=== PATIENT | male | born 1960 | race Caucasian/White ===

== ENCOUNTER 2017-02-04 04:01 | Emergency (ER) | payer BC, OTHER ==
[~2017-02-04] VITALS: Ht 180.3 cm; Wt 109.5 kg
[~2017-02-04 04:01] MED LIST: NO HOME MEDS
[2017-02-04 04:06] VITALS: BP 146/91; PULSE 73; TEMP 36.5; O2SAT 94; Ht 180.3 cm; Wt 109.5 kg
[2017-02-04] MEDS ORDERED: PRED20TA PO (04:22)
--- NOTE | 2017-02-05 03:10 | EMERGENCY ROOM VISIT NOTE ---
History First contact with patient: 04:10 Chief Complaint: RASH Stated Complaint: WELTS ON BACK AND ARMS History of Present Illness The patient is a 56 year old male who presents to the Emergency Room with complaints of urticaria that have been coming and going over the past 2-3 days. The patient primarily has been having symptoms along his low back. He does not have reports of new medications, deodorants, or soaps. No known exposure to contact irritants. He has not been ill with fever, chills, throat pain or swelling, chest pain, chest tightness, or shortness of breath. The patient is employed and works outside most days. He is unsure what may be causing this, as he has never had this in the past. He rates his discomfort a 2/10. Review of Systems More than 10 systems were reviewed and otherwise negative with the exception of history of present illness. Past Medical/Surgical History Medical Problems: (1) Calculus Of Ureter (2) Lumbago (3) Tobacco Use Disorder Family History No pertinent family history Social History Smoking Status: Current Every Day Smoker Alcohol Use: occasionally Marital Status: Occupation Status: employed Current/Historical Medications Scheduled Prednisone (Prednisone), 0 PO DAILY Miscellaneous Medications [No Home Meds] Allergies Coded Allergies: No Known Allergies (Verified , 11/16/03) Physical Exam Vital Signs Date Time Temp Pulse Resp B/P Pulse Ox O2 Delivery O2 Flow Rate FiO2 02/04/17 04:06 36.5 73 16 146/91 94 Room Air Pain Rating (0-10): 0 Physical Exam VITALS: Vitals are noted on the nurse's note and reviewed by myself. Vital signs stable. GENERAL: Well-developed, well-nourished, white male, who is in no acute distress and resting comfortably. Patient is cooperative with the examination. HEAD: Normocephalic atraumatic. MOUTH: Mucous membranes moist. Tonsils are not enlarged. Pharynx without erythema, blood, or exudate. Uvula midline. Airway patent. NECK: Supple without nuchal rigidity. No lymphadenopathy. No thyromegaly. Cervical spine is nontender. HEART: Regular rate and rhythm without murmurs gallops or rubs. LUNGS: Coarse breath sounds throughout ABDOMEN: Positive normal bowel sounds x 4. Soft, nontender, without masses or organomegaly. No guarding or rebound tenderness. MUSCULOSKELETAL: No muscle atrophy, erythema, or edema noted. Full range of motion without joint tenderness in all extremities. NEURO: Patient was alert and oriented to person place and time. CN II through XII grossly intact. SKIN: The skin was with several urticaria appreciated along the back. No other lesions noted. Medical Decision & Procedures Medications Administered Medications (Trade) Dose Ordered Sig/Antelmo Route Start Time Stop Time Status Last Admin Dose Admin Prednisone (PredniSONE TAB) 60 mg NOW STAT PO 02/04/17 04:21 02/04/17 04:23 DC 02/04/17 04:25 60 MG ED Course Physical exam and history were performed. Nursing notes and EMR were reviewed. Patient appears to have an urticarial-like rash primarily along his low back. He states his symptoms are worse at night, and he does not have signs of anaphylaxis. The patient is a heavy smoker, and does have coarse breath sounds. I feel this is likely from the smoking and not from an allergic reaction. I discussed options of care with the patient. He will be given a dose of prednisone here as well as a continuation prescription. The patient was asked to follow with his primary care physician for ongoing care and evaluation. He is otherwise invited back to the ER with any new, worsening, or concerning symptoms. The chart was completed utilizing [employer] Speech Voice Recognition Software. Grammatical errors, random word insertions, pronoun errors, and incomplete sentences are an occasional consequence of this system due to software limitations, ambient noise, and hardware issues. Any formal questions or concerns about the content, text, or information contained within the body of this dictation should be directly addressed to the provider for clarification. . Medical Decision Differential diagnosis: Etiologies such as contact dermatitis, viral exanthem, urticaria, allergic reaction, Giang-Adin syndrome, toxic epidermal necrolysis, erythema multiforme, cellulitis, scabies, HSV, varicella, zoster, eczema, staph scalded skin syndrome, fungal infection, as well as others were entertained. Impression Primary Impression: Rash and nonspecific skin eruption Departure Information Dispostion Home / Self-Care Condition FAIR Prescriptions Prednisone (Prednisone) 20 Mg Tab 0 PO DAILY, #18 TAB 3 DAILY FOR 3 DAYS, THEN 2 DAILY FOR 3 DAYS, THEN 1 DAILY FOR 3 DAYS. Prov: Be Giraldo PA-C 02/04/17 Forms HOME CARE DOCUMENTATION FORM, IMPORTANT VISIT INFORMATION Patient Instructions My [facility] Additional Instructions You were seen and evaluated today on an emergency basis only. This is not a substitute for, or an effort to provide, complete comprehensive medical care. It is not possible to recognize and treat all injuries or illnesses in a single emergency department visit. For this reason it is recommended that you followup with your primary care physician next week if any ongoing or persisting symptoms. Take prednisone as prescribed. You are welcome to return to the emergency department anytime with new, worsening, or concerning symptoms.
[2017-08-15] MEDS ORDERED: FLM4 PO (10:18)
[2017-08-15] MEDS ORDERED: ULT50X PO (10:18)
[2017-08-15] MEDS ORDERED: IBUP-1277 PO (10:18)
[2017-08-19] MEDS ORDERED: ULT50X PO ×2 (17:29→17:33)
[2017-08-19] MEDS ORDERED: PHEN-1043 PO (17:29)
== END 2017-02-04 04:26 | disposition home or self-care (01) ==
LOC: C.EDB 04:03 → C.EDA 04:26
DX: R21 Rash and other nonspecific skin eruption (principal); Z87.442 Personal history of urinary calculi; F17.210 Nicotine dependence, cigarettes, uncomplicated

== ENCOUNTER 2017-03-08 21:03 | Emergency (ER) | payer OTHER ==
[~2017-03-08] VITALS: Ht 181.6 cm; Wt 107.6 kg
[~2017-03-08 21:03] MED LIST changes: +PRED20TA PO
[2017-03-08 21:05] VITALS: TEMP 37; Ht 181.6 cm; Wt 107.6 kg
[2017-03-08] MEDS ORDERED: KETOROLAC TROMETHAMINE 30 MG/ML VIAL IV STA (21:31)
[2017-03-08] MEDS ORDERED: SODIUM CHLORIDE 0.9% 1000ML 1,000 ML IV STA (21:31)
[2017-03-08] MEDS ORDERED: ALBUT/IPRATROP 3MG/0.5MG NEB 3 ML VIAL INH STA ×2 (21:31→22:47)
[2017-03-08] MEDS ORDERED: DEXAMETHASONE SOD INJ 10 MG/ML VIAL IV ONE (21:45)
[2017-03-08 21:53] VITALS: O2SAT 99
[2017-03-08 22:16] LABS: BASO % 0.2 %; BASO ABS # 0.02 K/uL (0-0.2); COMPLETE YES; EOS % 2.1 %; HEMATOCRIT 40.3 % (42-52); IG% 0.2 %; LYMPH % 16.1 %; LYMPH ABS # 1.31 K/uL (1.2-3.4); MEAN CELL VOLUME 87.6 fL (80-100); MEAN CORPUSCULAR HEMOGLOBIN 30.2 pg (25-34); MEAN CORPUSCULAR HGB CONC 34.5 g/dl (32-36); MEAN PLATELET VOLUME 10.7 fL (7.4-10.4); MONO % 13.8 %; NEUT % 67.6 %; PLATELET COUNT 268 K/uL (130-400); WHITE BLOOD COUNT 8.16 K/uL (4.8-10.8)
[2017-03-08 22:34] LABS: BLOOD UREA NITROGEN 9 mg/dl (7-18); BUN/CREATININE RATIO 8.2 (10-20); CALCIUM 8.8 mg/dl (8.5-10.1); CARBON DIOXIDE 27 mmol/L (21-32); CHLORIDE 107 mmol/L (98-107); GLUCOSE 86 mg/dl (70-99); POTASSIUM 3.9 mmol/L (3.5-5.1); SODIUM 141 mmol/L (136-145)
--- NOTE | 2017-03-08 22:37 | DIAGNOSTIC IMAGING REPORT ---
TWO VIEW CHEST CLINICAL HISTORY: Cough and fever. FINDINGS: PA and lateral chest radiographs are obtained. No prior studies are available for comparison at the time of dictation. The cardiomediastinal silhouette is unremarkable. There is no airspace consolidation. An 11 mm nodular density projects over the right midlung. There is no pneumothorax. The bony thorax appears intact. IMPRESSION: 1. No acute cardiopulmonary abnormality. 2. An 11 mm indeterminant nodular density projects over the right midlung. Although could represent artifact, follow-up with a chest CT is recommended for further assessment and to exclude underlying pulmonary lesion. Electronically signed by: Mehdi Escoto M.D. 03/08/2017 10:35 PM Dictated Date/Time: 03/08/2017 10:33 PM
[2017-03-08] MEDS ORDERED: DOXY100C2 PO (23:46)
[2017-03-08] MEDS ORDERED: PRED50TA PO (23:46)
[2017-03-08] MEDS ORDERED: ALBUTEROL HFA 8 GM INHALER INH STA (23:49)
[2017-03-08 23:59] VITALS: BP 128/63; PULSE 82; O2SAT 92
[2017-03-09] MEDS ORDERED: DOXYCYCLINE HYCLATE 100 MG CAP PO ONE
--- NOTE | 2017-03-09 04:26 | EMERGENCY ROOM VISIT NOTE ---
History First contact with patient: 21:25 Chief Complaint: CONGESTION Stated Complaint: CONGESTED,CHILLS,WEAZING Nursing Triage Summary: cough and congestion, worsening since nonproductive cough, no fever History of Present Illness The patient is a 56 year old male who presents to the Emergency Room with complaints of cough, congestion wheezing for the past few days who smokes. No known COPD. Patient denies chest pain, abdominal pain, fevers, leg pain or swelling, headache, sore throat, lightheadedness, dizziness. He is tolerated by mouth fluids and food. Review of Systems See HPI for pertinent positives & negatives. A total of 10 systems reviewed and were otherwise negative. Past Medical/Surgical History Medical Problems: (1) Calculus Of Ureter (2) Lumbago (3) Tobacco Use Disorder Social History Smoking Status: Current Every Day Smoker Alcohol Use: occasionally Drug Use: none Marital Status: Occupation Status: employed Current/Historical Medications Scheduled Doxycycline Hyclate (Vibramycin), 100 MG PO BID Prednisone (Prednisone), 50 MG PO DAILY Allergies Coded Allergies: No Known Allergies (Verified , 03/08/17) Physical Exam Vital Signs Date Time Temp Pulse Resp B/P (MAP) Pulse Ox O2 Delivery O2 Flow Rate FiO2 03/08/17 23:59 82 18 128/63 92 03/08/17 23:10 98 Room Air 03/08/17 22:53 79 16 126/74 92 Room Air 03/08/17 22:07 77 18 125/85 93 Room Air 03/08/17 22:06 Room Air 03/08/17 22:00 79 03/08/17 21:53 99 03/08/17 21:05 37.0 93 18 155/89 94 Room Air Pain Rating (0-10): 0 Physical Exam VITALS: Vitals are noted on the nurse's note and reviewed by myself. Vital signs mildly hypertensive. GENERAL: Pleasant male with audible wheeze, in no acute distress, nondiaphoretic , well-developed well-nourished. SKIN: The skin was without rashes, erythema, edema, or bruising. There is no tenting of the skin. Capillary reflex less than 2 seconds. HEAD: Normocephalic atraumatic. EARS: External auditory canals clear, tympanic membranes pearly youssef without erythema or effusion bilaterally. EYES: Pupils equal round and reactive to light and accommodation. Conjunctivae without injection, sclerae without icterus. Extraocular movements intact. NOSE: Patent, turbinates without inflammation or discharge. No sinus tenderness. MOUTH: Mucous membranes moist. Pharynx without erythema or exudate. Uvula midline. Airway patent. Tongue does not deviate. NECK: Supple without nuchal rigidity. No lymphadenopathy. No thyromegaly. Cervical spine is nontender. No JVD. HEART: Regular rate and rhythm without murmurs gallops or rubs. LUNGS: Mild diffuse end expiratory wheezes, without rales or rhonchi. No dullness to percussion. No retractions or accessory muscle use. ABDOMEN: Positive bowel sounds x 4. Normal tympanic percussion. Soft, nontender, without masses or organomegaly. Sanchez sign negative. No guarding or rebound tenderness. MUSCULOSKELETAL: No muscle atrophy, erythema, or edema noted. NEURO: Patient was alert and oriented to person place and time. Normal sensation to light and sharp touch. No focal neurological deficits. Medical Decision & Procedures Laboratory Results 03/08/17 22:00 Red Blood Count 4.60, Mean Corpuscular Volume 87.6, Mean Corpuscular Hemoglobin 30.2, Mean Corpuscular Hemoglobin Concent 34.5, Mean Platelet Volume 10.7, Neutrophils (%) (Auto) 67.6, Lymphocytes (%) (Auto) 16.1, Monocytes (%) (Auto) 13.8, Eosinophils (%) (Auto) 2.1, Basophils (%) (Auto) 0.2, Neutrophils # (Auto ) 5.51, Lymphocytes # (Auto) 1.31, Monocytes # (Auto) 1.13, Eosinophils # (Auto ) 0.17, Basophils # (Auto) 0.02 03/08/17 22:00 Test 03/08/17 22:00 White Blood Count 8.16 K/uL (4.8-10.8) Red Blood Count 4.60 M/uL (4.7-6.1) Hemoglobin 13.9 g/dL (14.0-18.0) Hematocrit 40.3 % (42-52) Mean Corpuscular Volume 87.6 fL (80-100) Mean Corpuscular Hemoglobin 30.2 pg (25-34) Mean Corpuscular Hemoglobin Concent 34.5 g/dl (32-36) Platelet Count 268 K/uL (130-400) Mean Platelet Volume 10.7 fL (7.4-10.4) Neutrophils (%) (Auto) 67.6 % Lymphocytes (%) (Auto) 16.1 % Monocytes (%) (Auto) 13.8 % Eosinophils (%) (Auto) 2.1 % Basophils (%) (Auto) 0.2 % Neutrophils # (Auto) 5.51 K/uL (1.4-6.5) Lymphocytes # (Auto) 1.31 K/uL (1.2-3.4) Monocytes # (Auto) 1.13 K/uL (0.11-0.59) Eosinophils # (Auto) 0.17 K/uL (0-0.5) Basophils # (Auto) 0.02 K/uL (0-0.2) RDW Standard Deviation 43.4 fL (36.4-46.3) RDW Coefficient of Variation 13.4 % (11.5-14.5) Immature Granulocyte % (Auto) 0.2 % Immature Granulocyte # (Auto) 0.02 K/uL (0.00-0.02) Anion Gap 7.0 mmol/L (3-11) Est Creatinine Clear Calc Drug Dose 93.2 ml/min Estimated GFR () 85.9 Estimated GFR (Non- 74.1 BUN/Creatinine Ratio 8.2 (10-20) Calcium Level 8.8 mg/dl (8.5-10.1) Troponin I < 0.015 ng/ml (0-0.045) Medications Administered Medications (Trade) Dose Ordered Sig/Antelmo Route Start Time Stop Time Status Last Admin Dose Admin Albuterol/ Ipratropium (Duoneb) 3 ml NOW STAT INH 03/08/17 21:31 03/08/17 21:34 DC 03/08/17 21:46 3 ML Dexamethasone Sodium Phosphate (Decadron Inj) 10 mg NOW ONCE IV 03/08/17 21:45 03/08/17 21:46 DC 03/08/17 21:48 10 MG Ketorolac Tromethamine (Toradol Inj) 30 mg NOW STAT IV 03/08/17 21:31 03/08/17 21:34 DC 03/08/17 21:49 30 MG Sodium Chloride 1,000 ml @ 999 mls/hr Q1H1M STAT IV 03/08/17 21:31 03/08/17 22:31 DC 03/08/17 21:31 999 MLS/HR Albuterol/ Ipratropium (Duoneb) 3 ml NOW STAT INH 03/08/17 22:47 03/08/17 22:49 DC 03/08/17 23:09 3 ML Doxycycline Hyclate (Vibramycin Cap) 100 mg ONE ONCE PO 03/09/17 00:00 03/09/17 00:01 DC 03/08/17 23:58 100 MG Albuterol (Ventolin Hfa Inhaler) 2 puffs ONE STAT INH 03/08/17 23:49 03/08/17 23:51 DC 03/08/17 23:58 2 PUFFS ED Course Prior records/ancillary studies reviewed. Triage Nursing notes reviewed. Additional history obtained from the family. The patient's history was concerning for respiratory difficulties. Differential diagnosis: Etiologies such as infections, reactive airway disease, pneumonia, pneumothorax , COPD, CHF, cardiac ischemia, pulmonary embolism, musculoskeletal, gastrointestinal, as well as others were entertained. Physical examination: As above. ER treatment provided: Nebulizer, steroids, doxycycline On reassessment the patient felt better. Diagnostic interpretation by me: The electrocardiogram was negative for acute ischemic or pathologic change. Normal sinus, normal intervals, no acute ST-T wave changes. Impression normal sinus rhythm interpreted by myself The labs revealed mild anemia. No leukocytosis Imaging studies: Chest x-ray as above. TWO VIEW CHEST CLINICAL HISTORY: Cough and fever. FINDINGS: PA and lateral chest radiographs are obtained. No prior studies are available for comparison at the time of dictation. The cardiomediastinal silhouette is unremarkable. There is no airspace consolidation. An 11 mm nodular density projects over the right midlung. There is no pneumothorax. The bony thorax appears intact. IMPRESSION: 1. No acute cardiopulmonary abnormality. 2. An 11 mm indeterminant nodular density projects over the right midlung. Although could represent artifact, follow-up with a chest CT is recommended for further assessment and to exclude underlying pulmonary lesion. Electronically signed by: Mehdi Escoto M.D. CT CHEST Without Contrast: Comparison chest x-ray 03/08/2017. A 1.2 cm centrally calcified granuloma/hamartoma is present in the base of the right upper lobe and corresponds to the lung nodule seen on comparison chest radiograph. No focal consolidation, pneumothorax, or pleural effusion. Some atelectasis or scarring is present in the right middle lobe. 4 mm nodule is present in the right major fissure likely representing a fissural lymph node. No acute osseous abnormality identified. Nonobstructing right intrarenal calculus measures 7 mm. Small hiatal hernia. No adenopathy. Heart and mediastinum are otherwise unremarkable. Radiologist: Feliciano Boyce MD This appears to be consistent with bronchitis with wheezing and a lung nodule. Patient is given information the lung nodule clinic advised to follow-up. He is strongly encouraged to quit smoking. Patient felt much better after being medicated as above. He is advised to take medications as directed and to follow -up family care in a few days or here in the ER sooner for chest pain, difficulty breathing, worsening signs or symptoms or as needed. Patient was not hypoxic. He was well-appearing. By the evaluation outlined above emergent etiologies such as CHF, cardiac ischemia, pulmonary embolism, pneumonia, pneumothorax, musculoskeletal, serious bacterial infections, as well as others were deemed relatively unlikely. The pt informed about the findings as listed above. All questions were answered and pleased with the treatment. Return instructions were outlined and the patient was discharged in stable condition. Outpatient prescription management: Prednisone, doxycycline Referral: The patient was referred back to their primary care physician for follow-up in 2 to 3 days for a recheck of the current condition. Case reviewed with my attending Medical Decision As above Impression Primary Impression: Lung nodule Additional Impression: Bronchitis Departure Information Dispostion Home / Self-Care Condition GOOD Prescriptions Doxycycline Hyclate (VIBRAMYCIN) 100 Mg Cap 100 MG PO BID for 7 Days, #14 CAP Prov: Anat Oakley .MALCOLM 03/08/17 Prednisone (Prednisone) 50 Mg Tab 50 MG PO DAILY for 4 Days, #4 TAB Prov: Anat Oakley PA-C 03/08/17 Referrals Romario Aguilar M.D. (PCP) Forms HOME CARE DOCUMENTATION FORM, IMPORTANT VISIT INFORMATION Patient Instructions Bronchitis Acute, My [facility], ED Nodule Solitary Pulmonary Additional Instructions You have a lung nodule on your scan. Follow-up with lung nodule clinic. Albuterol Inhaler: Take 2 puffs four times daily for five days, then as needed. Prednisone 50mg: Once daily until the prescription is finished. It is best to take this earlier in the day as some patients note occasional difficulty falling asleep when taken in the late evening. Doxycycline 100mg: Take one pill twice daily for seven days for your infection. Take with food, but avoid dairy. Avoid prolonged sun exposure since this medication makes you temporarily more susceptible to sunburns. All antibiotics can cause diarrhea. If this occurs and you feel worse or it does not resolve in 1-2 days follow up with your doctor or return to the Emergency Department as this could be signs of serious underlying problems. Any medication can cause an allergic reaction, stop the pills immediately and return to the ER for rash, hives, breathing difficulties, or swelling. Acetaminophen(Tylenol) may be used for fever or pain. Use 1000mg every six hours as needed. Avoid using more than 3000mg in a 24 hour period. (AND/OR) Ibuprofen(Motrin, Advil) may be used for fever or pain. Use 600mg every six hours as needed. Take with food. Avoid using more than 2400mg in a 24 hour period. Do not use 2400mg per day for more than three consecutive days without physician direction. Prolonged inappropriate use can lead to stomach upset or ulcers. Rest and drink plenty of fluids. Avoid smoke/smoking, fumes, dust, or any triggers in the past that may have affected your breathing. Continue current medications. Return to the ER for chest pain, difficulty breathing, fevers, vomiting, worsening of your condition, or as needed. Follow up with your primary physician this week for a recheck of your current condition. Problem Qualifiers
--- NOTE | 2017-03-09 05:39 | DIAGNOSTIC IMAGING REPORT ---
CHEST CT WITHOUT CONTRAST CT DOSE: 441.66 mGy.cm HISTORY: Abnormal chest x-ray cough/wheeze, lung nodule CXR TECHNIQUE: Multiaxial CT images of the chest were performed without contrast. COMPARISON: None. FINDINGS: Pulmonary partially calcified granuloma right midlung. This corresponds to the finding seen on plain film evaluation. Lungs otherwise appear clear. There is a component of emphysematous change. Minimal right middle lobe atelectasis. No significant mediastinal or hilar pathology. IMPRESSION: 1. Routine film finding represents a benign calcified granuloma. 2. Mild emphysematous change. 3. Minimal atelectasis right middle lobe. Electronically signed by: Osman Gardner M.D. 03/09/2017 5:38 AM Dictated Date/Time: 03/09/2017 5:35 AM
[2017-08-15] MEDS ORDERED: ULT50X PO (10:18)
[2017-08-15] MEDS ORDERED: IBUP-1277 PO (10:18)
[2017-08-15] MEDS ORDERED: FLM4 PO (10:18)
[2017-08-19] MEDS ORDERED: PHEN-1043 PO (17:29)
[2017-08-19] MEDS ORDERED: ULT50X PO ×2 (17:29→17:33)
== END 2017-03-09 00:01 | disposition home or self-care (01) ==
LOC: C.EDB 21:03
DX: J40 Bronchitis, not specified as acute or chronic (principal); R91.1 Solitary pulmonary nodule; F17.200 Nicotine dependence, unspecified, uncomplicated; Z87.442 Personal history of urinary calculi

== ENCOUNTER 2017-08-17 23:05 | Inpatient (IN) | payer OTHER ==
[~2017-08-17] VITALS: Ht 182.9 cm; Wt 102.0 kg
[~2017-08-17 23:05] MED LIST changes: +FLM4 PO; +IBUP-1277 PO; -NO HOME MEDS; -PRED20TA PO; +ULT50X PO
--- NOTE | 2017-08-17 23:25 | EMERGENCY ROOM VISIT NOTE ---
History Report prepared by Evie: Daphney Rowan Under the Supervision of: Dr. Yvette Sharpe D.O. First contact with patient: 23:13 Chief Complaint: FLANK PAIN Stated Complaint: KIDNEY STONE PAIN History of Present Illness The patient is a 57 year old male who presents to the Emergency Room with complaints of persistent right lower quadrant pain that began at 2100 today. The patient rates his discomfort an 8/10 in severity. He states that he is nauseous and has been vomiting. The patient visited the Emergency Department one week ago and was diagnosed with having a 4mm stone in the right distal ureter. He was admitted and followed by urology. The patient was discharged yesterday morning, noting he felt normal until today. The patient says that he has been drinking plenty of fluids and has been taking all of his medications. The patient has been taking Tramadol for his pain. Source of History: patient Onset: 2100 Position: abdomen (RLQ) Symptom Intensity: 8/10 Quality: other (right lower quadrant pain) Timing: other (persistent) Associated Symptoms: + nausea, + vomiting Review of Systems See HPI for pertinent positives & negatives. A total of 10 systems reviewed and were otherwise negative. Past Medical & Surgical Medical Problems: (1) Abdominal pain (2) Calculus Of Ureter (3) Lumbago (4) Renal colic (5) Tobacco Use Disorder Family History Cancer Social History Smoking Status: Current Every Day Smoker Alcohol Use: occasionally Drug Use: none Marital Status: Occupation Status: employed Current/Historical Medications Scheduled Tamsulosin HCl (Tamsulosin HCl), 0.4 MG PO QAM Scheduled PRN Ibuprofen (Advil), 400 MG PO Q4H PRN for Pain Tramadol HCl (Tramadol HCl), 50 MG PO Q6H PRN for Pain Allergies Coded Allergies: No Known Allergies (Verified , 08/17/17) Physical Exam Vital Signs Date Time Temp Pulse Resp B/P (MAP) Pulse Ox O2 Delivery O2 Flow Rate FiO2 08/18/17 00:17 68 18 128/75 95 Room Air 08/17/17 23:08 36.6 75 18 157/90 97 Room Air Physical Exam HEENT: Head - normocephalic and atraumatic Pupils are equal, round, and reactive to light. Extraocular eye muscles are intact, and sclera are anicteric. Nose - moist nasal mucosa without discharge. Mouth - moist buccal mucosa. Oropharynx is nonerythematous and there is no tonsillar exudate or edema noted. Neck: Supple; no JVD, nuchal rigidity, cervical lymphadenopathy. Heart: Regular rate and rhythm. There is a normal S1 and S2 with no murmurs, clicks, or gallops appreciated. Lungs: Clear to auscultation bilaterally with no wheezes, rales, or rhonchi. Abdomen: Right lower quadrant pain. There is no guarding, rigidity or rebound. Extremities: No evidence of cyanosis, clubbing, or edema. There are easily palpable peripheral pulses. Skin: warm and dry with good turgor and no rashes. Medical Decision & Procedures ER Provider Diagnostic Interpretation: KUB x-ray: Stone still present in right distal ureter as interpreted by me. Laboratory Results 08/17/17 23:35 Red Blood Count 4.26, Mean Corpuscular Volume 88.5, Mean Corpuscular Hemoglobin 30.3, Mean Corpuscular Hemoglobin Concent 34.2, Mean Platelet Volume 11.6, Neutrophils (%) (Auto) 86.8, Lymphocytes (%) (Auto) 6.6, Monocytes (%) (Auto) 5.6, Eosinophils (%) (Auto) 0.7, Basophils (%) (Auto) 0.1, Neutrophils # (Auto) 12.43, Lymphocytes # (Auto) 0.95, Monocytes # (Auto) 0.80, Eosinophils # (Auto) 0.10, Basophils # (Auto) 0.02 08/17/17 23:35 Test 08/17/17 23:35 08/18/17 00:45 08/18/17 01:06 White Blood Count 14.33 K/uL (4.8-10.8) Red Blood Count 4.26 M/uL (4.7-6.1) Hemoglobin 12.9 g/dL (14.0-18.0) Hematocrit 37.7 % (42-52) Mean Corpuscular Volume 88.5 fL (80-100) Mean Corpuscular Hemoglobin 30.3 pg (25-34) Mean Corpuscular Hemoglobin Concent 34.2 g/dl (32-36) Platelet Count 210 K/uL (130-400) Mean Platelet Volume 11.6 fL (7.4-10.4) Neutrophils (%) (Auto) 86.8 % Lymphocytes (%) (Auto) 6.6 % Monocytes (%) (Auto) 5.6 % Eosinophils (%) (Auto) 0.7 % Basophils (%) (Auto) 0.1 % Neutrophils # (Auto) 12.43 K/uL (1.4-6.5) Lymphocytes # (Auto) 0.95 K/uL (1.2-3.4) Monocytes # (Auto) 0.80 K/uL (0.11-0.59) Eosinophils # (Auto) 0.10 K/uL (0-0.5) Basophils # (Auto) 0.02 K/uL (0-0.2) RDW Standard Deviation 45.3 fL (36.4-46.3) RDW Coefficient of Variation 14.0 % (11.5-14.5) Immature Granulocyte % (Auto) 0.2 % Immature Granulocyte # (Auto) 0.03 K/uL (0.00-0.02) Platelet Estimate NORMAL Anion Gap 8.0 mmol/L (3-11) Est Creatinine Clear Calc Drug Dose 94.8 ml/min Estimated GFR () 90.3 Estimated GFR (Non- 77.9 BUN/Creatinine Ratio 11.9 (10-20) Calcium Level 8.7 mg/dl (8.5-10.1) Magnesium Level 1.8 mg/dl (1.8-2.4) Total Bilirubin 0.3 mg/dl (0.2-1) Direct Bilirubin < 0.1 mg/dl (0-0.2) Aspartate Amino Transf (AST/SGOT) 12 U/L (15-37) Alanine Aminotransferase (ALT/SGPT) 19 U/L (12-78) Alkaline Phosphatase 79 U/L (45-117) Total Protein 6.7 gm/dl (6.4-8.2) Albumin 3.7 gm/dl (3.4-5.0) Urine Color YELLOW Urine Appearance CLOUDY (CLEAR) Urine pH 5.0 (4.5-7.5) Urine Specific [place] 1.024 (1.000-1.030) Urine Protein TRACE (NEG) Urine Glucose (UA) NEG (NEG) Urine Ketones TRACE (NEG) Urine Occult Blood 3+ (NEG) Urine Nitrite NEG (NEG) Urine Bilirubin NEG (NEG) Urine Urobilinogen NEG (NEG) Urine Leukocyte Esterase TRACE (NEG) Urine WBC (Auto) 1-5 /hpf (0-5) Urine RBC (Auto) 5-10 /hpf (0-4) Urine Hyaline Casts (Auto) 5-10 /lpf (0-5) Urine Epithelial Cells (Auto) 5-10 /lpf (0-5) Urine Bacteria (Auto) NEG (NEG) Urine Crystals CALCIUM OXALATE (NONE Bedside Lactic Acid Venous 0.47 mmol/L (0.90-1.70) Laboratory results per my review. Medications Administered Medications (Trade) Dose Ordered Sig/Antelmo Route Start Time Stop Time Status Last Admin Dose Admin Sodium Chloride 1,000 ml @ 250 mls/hr Q4H STAT IV 08/17/17 23:39 08/18/17 00:56 DC 08/17/17 23:49 250 MLS/HR Ondansetron HCl (Zofran Inj) 4 mg NOW STAT IV 08/17/17 23:39 08/17/17 23:40 DC 08/17/17 23:49 4 MG Morphine Sulfate (MoRPHine SULFATE INJ) 4 mg NOW STAT IV 08/17/17 23:39 08/17/17 23:40 DC 08/17/17 23:49 4 MG Cefepime HCl 2000 mg/Syringe 20 ml @ 5 mls/min NOW STAT IV 08/18/17 01:01 08/18/17 01:04 DC 08/18/17 01:12 5 MLS/MIN Potassium Chloride (Klor-Con M10) 40 meq NOW STAT PO 08/18/17 01:10 08/18/17 01:18 DC 08/18/17 01:22 40 MEQ Procedure 2339: Ordered Morphine Sulfate 4mg IV, Zofran Inj 4mg IV, and Sodium Chloride 1000ml @ 250 mls/hr IV. 0101: Ordered Cefepime HCl 2000 mg/syringe 20ml @ 5mls/min protocol IV. ED Course 2316: Past medical records reviewed. The patient was evaluated in room A2. A complete history and physical exam was performed. Labs were drawn as above. 2339: Ordered Morphine Sulfate 4mg IV, Zofran Inj 4mg IV, and Sodium Chloride 1000ml @ 250 mls/hr IV. The patient went for a KUB which showed a persistent right distal ureter stone 2442: I reevaluated the patient, who was resting comfortably. I'm going to order a urine specimen. 2452: I discussed the patient's case with ROBERTO Montaño. The patient will be evaluated for further management. Blood cultures and a urine culture were obtained. 0101: Ordered Cefepime HCl 2000 mg/syringe 20ml @ 5mls/min protocol IV. Medical Decision The patient is a 57 year old male who presents to the ED with abdominal pain. Differential diagnosis includes Obstructive Uropathy and Infected Kidney Stone. The lab results show: WBC- 14.3 (which is up from 9.1 during his recent admission) with 86% neutrophils. Stable H & H. Potassium slightly low at 3.2. Normal renal function. Glucose- 155. The patient has an obstructing 4 mm right distal ureteral stone. He has developed intractable pain. He now has an elevated white blood cell count. Patient was started on cefepime prophylactically. I discussed the case with the [facility] Hospitalist and they will evaluate for further management Medication Reconcilliation Current Medication List: was personally reviewed by me Blood Pressure Screening Patient's blood pressure: Elevated blood pressure Blood pressure disposition: Elevated BP felt to be situational Consults Time Called: 2280 Consulting Physician: ROBERTO Montaño Returned Call: [phone] Discussed the patient's case. The patient will be evaluated for further management. Impression Primary Impression: Hydronephrosis with renal and ureteral calculous obstruction Scribe Attestation The scribe's documentation has been prepared under my direction and personally reviewed by me in its entirety. I confirm that the note above accurately reflects all work, treatment, procedures, and medical decision making performed by me. Departure Information Dispostion Being Evaluated By Hospitalist Referrals No Doctor, Assigned (PCP) Patient Instructions My [facility]
[2017-08-17] MEDS ORDERED: SODIUM CHLORIDE 0.9% 1000ML 1,000 ML IV STA (23:39)
[2017-08-17] MEDS ORDERED: MoRPHine SULFATE 4 MG/ML 1 ML CARP\\VIAL IV STA (23:39)
[2017-08-17] MEDS ORDERED: ONDANSETRON INJ 2 MG/ML 2 ML VIAL IV STA (23:39)
[2017-08-18 00:05] LABS: BLOOD UREA NITROGEN 13 mg/dl (7-18); BUN/CREATININE RATIO 11.9 (10-20); CALCIUM 8.7 mg/dl (8.5-10.1); CARBON DIOXIDE 28 mmol/L (21-32); CHLORIDE 102 mmol/L (98-107); CREATININE 1.05 mg/dl (0.60-1.40); GLUCOSE 155 mg/dl (70-99); POTASSIUM 3.2 mmol/L (3.5-5.1); SODIUM 137 mmol/L (136-145)
[2017-08-18 00:38] LABS: HEMATOCRIT 37.7 % (42-52); MEAN CELL VOLUME 88.5 fL (80-100); MEAN CORPUSCULAR HEMOGLOBIN 30.3 pg (25-34); MEAN CORPUSCULAR HGB CONC 34.2 g/dl (32-36); MEAN PLATELET VOLUME 11.6 fL (7.4-10.4); PLATELET COUNT 210 K/uL (130-400); RED BLOOD COUNT 4.26 M/uL (4.7-6.1); WHITE BLOOD COUNT 14.33 K/uL (4.8-10.8)
[2017-08-18 00:39] LABS: BASO % 0.1 %; BASO ABS # 0.02 K/uL (0-0.2); COMPLETE YES; EOS % 0.7 %; IG% 0.2 %; LYMPH % 6.6 %; LYMPH ABS # 0.95 K/uL (1.2-3.4); MONO % 5.6 %; NEUT % 86.8 %; PLT ESTIMATE NORMAL
[2017-08-18] MEDS ORDERED: CEFEPIME IV 2,000 MG in DEXTROSE 5% 100ML 100 ML IV STA (00:49)
[2017-08-18] MEDS ORDERED: CEFEPIME IV 2,000 MG in SYRINGE 7.5 ML IV STA (01:01)
[2017-08-18 01:10] LABS: URINE APPEARANCE CLOUDY (CLEAR); URINE BILIRUBIN NEG (NEG); URINE COLOR YELLOW; URINE NITRITE NEG (NEG); URINE SPECIFIC GRAVITY 1.024 (1.000-1.030); UROBILINOGEN NEG (NEG)
[2017-08-18] MEDS ORDERED: POTASSIUM CHLORIDE 10 MEQ TABCR PO STA (01:10)
[2017-08-18] MEDS ORDERED: KETOROLAC TROMETHAMINE 30 MG/ML VIAL IV PRN (01:15)
[2017-08-18] MEDS ORDERED: LORAZEPAM 2 MG/ML 1 ML VIAL IV PRN (01:15)
[2017-08-18] MEDS ORDERED: PROCHLORPERAZINE INJ 5 MG in SYRINGE 4 ML IV PRN (01:15)
[2017-08-18] MEDS ORDERED: TRAMADOL HCL 50 MG TAB PO PRN (01:15)
[2017-08-18] MEDS ORDERED: ACETAMINOPHEN 325 MG TAB PO PRN (01:15)
[2017-08-18] MEDS ORDERED: MoRPHine SULFATE 4 MG/ML 1 ML CARP\\VIAL IV PRN (01:15)
[2017-08-18 01:20] LABS: MANUAL MICROSCOPIC REQUIRED? NO; REVIEW REQ? YES
[2017-08-18 01:38] LABS: ALKALINE PHOSPHATASE 79 U/L (45-117); ALT/SGPT 19 U/L (12-78); AST/SGOT 12 U/L (15-37); MAGNESIUM 1.8 mg/dl (1.8-2.4)
[2017-08-18 01:45] VITALS: BP 140/86; PULSE 73; TEMP 36.5; O2SAT 96; Ht 182.9 cm; Wt 102.0 kg
[2017-08-18] MEDS ORDERED: NSS + 20MEQ KCL 1000ML 1,000 ML IV SCH (02:00)
--- NOTE | 2017-08-18 02:51 | HISTORY & PHYSICAL EXAMINATION ---
DATE OF ADMISSION: 08/18/2017 PRIMARY CARE DOCTOR: Romario Aguilar MD. CHIEF COMPLAINT: Right abdominal pain. HISTORY OF PRESENT ILLNESS: History obtained from patient and records. Medical history significant for urolithiasis, ongoing tobacco abuse, pulmonary nodules. Recent confinement a few days ago for right ureteral stone. Patient seen by urology, but patient preferred to wait for stone passage. Patient was later comfortable going home. Hours ago, patient had recurrence of achy right-sided abdominal pain similar Kidney stone episode, some nausea, emesis. Good bowel movement. No fever, no chills. Patient given IV Cefepime at the ER. MEDICAL HISTORY: As above. Incidental finding of pulmonary nodule on imaging from recent confinement. SURGERIES: None. HOME MEDICATIONS: Include Flomax, ibuprofen and tramadol. ALLERGIES: No known drug allergies. FAMILY HISTORY: There is a family history of hypertension. PERSONAL AND SOCIAL HISTORY: 3/4 pack daily. 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 REVIEW OF SYSTEMS: As per HPI, all 10 systems reviewed. All other ROS negative. PHYSICAL EXAMINATION: VITAL SIGNS: Blood pressure was noted to be 170/90, later 130/80, pulse rate 69, RR 18, temperature 36.6, sats 95 on room air. GENERAL: Noted to be obese, slightly uncomfortable, no respiratory distress. SKIN: Pallor, warm. HEENT: Pale palpebral conjuctivae. No ptosis. Dry buccal mucosa. NECK: Short neck. No tenderness. LUNGS: Decreased breath sounds. No tenderness. HEART: Regular rate and rhythm. No murmur. ABDOMEN: Minimal tenderness to right lower quadrant. Some distention. EXTREMITIES: No edema, no tenderness. No gross deformities. NEUROLOGIC: Coherent. No gross focality. LABORATORY DATA: Hemoglobin was noted to be 12.9, hematocrit 37, white cell count 14.8, platelets 210. Sodium 137, potassium 3.2, chloride 106, CO2 28, BUN 12, creatinine 1, glucose 155. Repeat KUB x-ray read calculus, R distal UVJ UA trace ketones, occult blood, trace WBC, epithelial cells. ASSESSMENT: 1. Right renal colic failed outpatient treatment. No sepsis. 2. Hypokalemia secondary to emesis. 3. Ongoing tobacco abuse. 4. Pulmonary nodules. PLAN: GMF analgesia, Flomax, IV fluids. Strain urine. Hold off on antibiotics for now. Urology consult regarding RE Patient known to Dr. Montalvo. Replace potassium. Check mag. Outpatient periodic surveillance study for pulmonary nodules Nicotine patch. DVT prophylaxis, SCDs. Full code. MTDD
[2017-08-18] MEDS ORDERED: CEFAZOLIN SOD 2000MG/10 ML IV PUSH IV SCH (06:00)
[2017-08-18 06:43] LABS: BASO % 0.2 %; BASO ABS # 0.02 K/uL (0-0.2); COMPLETE YES; HEMATOCRIT 36.6 % (42-52); IG% 0.2 %; LYMPH ABS # 1.63 K/uL (1.2-3.4); MEAN CELL VOLUME 89.5 fL (80-100); MEAN CORPUSCULAR HEMOGLOBIN 30.1 pg (25-34); MEAN CORPUSCULAR HGB CONC 33.6 g/dl (32-36); MEAN PLATELET VOLUME 11.2 fL (7.4-10.4); MONO % 7.3 %; NEUT % 74.3 %; PLATELET COUNT 253 K/uL (130-400); RED BLOOD COUNT 4.09 M/uL (4.7-6.1)
--- NOTE | 2017-08-18 06:49 | DIAGNOSTIC IMAGING REPORT ---
KUB CLINICAL HISTORY: Right flank pain. Evaluate for right ureteral stone. COMPARISON STUDY: CT of the abdomen and pelvis August 13, 2017 and KUB August 14, 2017. FINDINGS: There has been slight distal migration of the 4 mm distal right ureteral calculus, now likely at the ureterovesical junction. No additional urinary calculi are identified. IMPRESSION: Slight distal migration of the 4 mm distal right ureteral calculus, now likely at the ureterovesical junction. Electronically signed by: Juan Boswell M.D. 08/18/2017 6:48 AM Dictated Date/Time: 08/18/2017 6:45 AM
[2017-08-18 07:13] LABS: CALCIUM 8.1 mg/dl (8.5-10.1); CREATININE 0.78 mg/dl (0.60-1.40); POTASSIUM 4.3 mmol/L (3.5-5.1)
[2017-08-18 07:40] VITALS: BP 134/86; PULSE 66; TEMP 36.5; O2SAT 97
[2017-08-18] MEDS: ONDANSETRON INJ 2 MG/ML 2 ML VIAL IV. SCH ×2 (08:01→21:23)
[2017-08-18] MEDS: NICOTINE 14 MG/24 HR TDSY TD SCH (08:01)
[2017-08-18] MEDS: TAMSULOSIN HCL 0.4 MG CAP PO SCH (08:02)
[2017-08-18 08:34] LABS: ESTIMATED AVERAGE GLUCOSE 105 mg/dl; HA1C FLAG Normal (Normal)
[2017-08-18 09:48] VITALS: O2SAT 97
--- NOTE | 2017-08-18 10:29 | Progress Note ---
Medicine Progress Note Date & Time of Visit: Aug 18, 2017 at 10:26. Subjective patient seen resting in bed, not in distress states RLQ pain is improved compared to yesterday no problems with urination has not passed stone yet denies fever/chills, nausea no other symptoms Objective Last 8 Hrs Date Time Temp Pulse Resp B/P (MAP) Pulse Ox O2 Delivery O2 Flow Rate FiO2 08/18/17 09:48 97 Room Air 08/18/17 07:40 36.5 66 20 134/86 (102) 97 Room Air 08/18/17 07:40 Room Air Physical Exam: General- oriented x 3, not in distress, speaks sentences, no effort Head- atraumatic Eyes- PERRL, EOMI, anicteric ENT- oropharynx clear Neck- supple, no JVD, no adenopathy, no thyromegaly Lungs- clear to auscultation b/l Heart- regular rhythm; no murmur, no gallop, no rub appreciated Abdomen- normal bowel sounds, soft, nontender, no masses , no CVA tenderness Extremities- no pretibial edema, no calf tenderness; peripheral pulses intact Neuro- alert, oriented x 3; no gross focal deficits Skin- warm & dry Laboratory Results: Last 24 Hours Test 08/17/17 23:35 08/18/17 00:45 08/18/17 01:06 08/18/17 05:38 White Blood Count 14.33 K/uL 9.60 K/uL Red Blood Count 4.26 M/uL 4.09 M/uL Hemoglobin 12.9 g/dL 12.3 g/dL Hematocrit 37.7 % 36.6 % Mean Corpuscular Volume 88.5 fL 89.5 fL Mean Corpuscular Hemoglobin 30.3 pg 30.1 pg Mean Corpuscular Hemoglobin Concent 34.2 g/dl 33.6 g/dl Platelet Count 210 K/uL 253 K/uL Mean Platelet Volume 11.6 fL 11.2 fL Neutrophils (%) (Auto) 86.8 % 74.3 % Lymphocytes (%) (Auto) 6.6 % 17.0 % Monocytes (%) (Auto) 5.6 % 7.3 % Eosinophils (%) (Auto) 0.7 % 1.0 % Basophils (%) (Auto) 0.1 % 0.2 % Neutrophils # (Auto) 12.43 K/uL 7.13 K/uL Lymphocytes # (Auto) 0.95 K/uL 1.63 K/uL Monocytes # (Auto) 0.80 K/uL 0.70 K/uL Eosinophils # (Auto) 0.10 K/uL 0.10 K/uL Basophils # (Auto) 0.02 K/uL 0.02 K/uL RDW Standard Deviation 45.3 fL 46.0 fL RDW Coefficient of Variation 14.0 % 14.0 % Immature Granulocyte % (Auto) 0.2 % 0.2 % Immature Granulocyte # (Auto) 0.03 K/uL 0.02 K/uL Platelet Estimate NORMAL Sodium Level 137 mmol/L 137 mmol/L Potassium Level 3.2 mmol/L 4.3 mmol/L Chloride Level 102 mmol/L 105 mmol/L Carbon Dioxide Level 28 mmol/L 29 mmol/L Anion Gap 8.0 mmol/L 3.0 mmol/L Blood Urea Nitrogen 13 mg/dl 9 mg/dl Creatinine 1.05 mg/dl 0.78 mg/dl Est Creatinine Clear Calc Drug Dose 94.8 ml/min 127.6 ml/min Estimated GFR () 90.3 115.3 Estimated GFR (Non- 77.9 99.5 BUN/Creatinine Ratio 11.9 12.0 Random Glucose 155 mg/dl 95 mg/dl Estimated Average Glucose 105 mg/dl Hemoglobin A1c 5.3 % Calcium Level 8.7 mg/dl 8.1 mg/dl Magnesium Level 1.8 mg/dl Total Bilirubin 0.3 mg/dl Direct Bilirubin < 0.1 mg/dl Aspartate Amino Transf (AST/SGOT) 12 U/L Alanine Aminotransferase (ALT/SGPT) 19 U/L Alkaline Phosphatase 79 U/L Total Protein 6.7 gm/dl Albumin 3.7 gm/dl Urine Color YELLOW Urine Appearance CLOUDY Urine pH 5.0 Urine Specific [place] 1.024 Urine Protein TRACE Urine Glucose (UA) NEG Urine Ketones TRACE Urine Occult Blood 3+ Urine Nitrite NEG Urine Bilirubin NEG Urine Urobilinogen NEG Urine Leukocyte Esterase TRACE Urine WBC (Auto) 1-5 /hpf Urine RBC (Auto) 5-10 /hpf Urine Hyaline Casts (Auto) 5-10 /lpf Urine Epithelial Cells (Auto) 5-10 /lpf Urine Bacteria (Auto) NEG Urine Crystals CALCIUM OXALATE Bedside Lactic Acid Venous 0.47 mmol/L Date/Time Source Procedure Growth Status 08/18/17 01:09 Blood Blood Culture Pending Received 08/18/17 01:03 Blood Blood Culture Pending Received 08/18/17 00:45 Urine , Clean Catch Urine Culture Pending Received Assessment & Plan 1. RIGHT URETERAL STONE - CT abdomen: IMPRESSION: 1. Obstructing 4 mm calculus in the distal right ureter with resultant mild right hydroureteronephrosis. No other renal calculi. 2. Solid 3 mm right lower lobe pulmonary nodule. Follow-up per [employer] 2017 recommendations below. - re-admitted for uncontrolled pain repeat KUB: stone moved down to UVJ 4mm UA: possible UTI - discussed with Dr. Montalvo plan for OR later, NPO for now urine cultures pending, empiric Ceftri PRN analgesics, IV fluids 2. Subpleural nodule, incidental finding on CT abdomen and pelvis. - CT abdomen: Solid 3 mm right lower lobe pulmonary nodule. Follow-up per Ana [employer] 2017 recommendations. - may need dedicated CT chest - close follow up, further management as outpatient 3. Ongoing tobacco abuse - counselling DVT Proph SCDs for now Disposition pending possible d/c home when medically stable Current Inpatient Medications: Current Inpatient Medications Medications (Trade) Dose Ordered Sig/Antelmo Route Start Time Stop Time Status Last Admin Dose Admin Acetaminophen (Tylenol Tab) 650 mg Q4H PRN PO 08/18/17 01:15 09/17/17 01:14 Nicotine (Nicoderm Cq 14MG Patch) 1 patch QAM TD 08/18/17 09:00 09/17/17 08:59 08/18/17 08:01 1 PATCH Miscellaneous (Remove Nicoderm Patch) 1 ea HS N/A 08/18/17 21:00 09/17/17 20:59 Prochlorperazine Edisylate 5 mg/ Syringe 5 ml @ 5 mls/min Q6H PRN IV 08/18/17 01:15 09/17/17 01:14 Ondansetron HCl (Zofran Inj) 4 mg Q12 IV. 08/18/17 09:00 08/18/17 21:01 08/18/17 08:01 4 MG Lorazepam (Ativan Inj) 0.5 mg Q4H PRN IV 08/18/17 01:15 09/17/17 01:14 Ketorolac Tromethamine (Toradol Inj) 30 mg Q6H PRN IV 08/18/17 01:15 08/23/17 01:14 Morphine Sulfate (MoRPHine SULFATE INJ) 4 mg Q3H PRN IV 08/18/17 01:15 09/01/17 01:14 Tamsulosin HCl (Flomax Cap) 0.4 mg QAM PO 08/18/17 09:00 09/17/17 08:59 08/18/17 08:02 0.4 MG Tramadol HCl (Ultram Tab) `1-2 tabs for pain 1 tab ... Q6H PRN PO 08/18/17 01:15 09/17/17 01:14 Dextrose/Sodium Chloride 1,000 ml @ 125 mls/hr Q8H IV 08/18/17 09:45 09/17/17 09:44 Ceftriaxone Sodium 1 gm/ Dextrose 50 ml @ 100 mls/hr Q24H IV 08/18/17 10:30 08/28/17 10:29 UNV
[2017-08-18] MEDS: D5W AND NSS 1,000 ML IV SCH ×2 (10:33→19:15)
[2017-08-18] MEDS ORDERED: CEFTRIAXONE SOD INJ 1 GM in DEXTROSE 5% ADD-VANTAGE 50ML 50 ML IV SCH (11:00)
[2017-08-18 11:48] VITALS: BP 138/92; PULSE 71; TEMP 36.3; O2SAT 95
[2017-08-18 15:11] VITALS: BP 136/75; PULSE 71; TEMP 36.4; O2SAT 94
[2017-08-18 15:20] VITALS: O2SAT 94
--- NOTE | 2017-08-18 21:10 | Urology Consultation ---
History General Date of Service: Aug 18, 2017. Chief Complaint: right uvj stone Primary Care Physician: Romario Aguilar M.D. Pt seen a urologist before?: Yes If yes, why?: right ureteral stone History of Present Illness I am asked by Dr Galicia to evaluate and treat for right ureteral stone. He returned with colic. He is trying to pass a 4mm right distal ureteral tone. He did well for 2 days then pain returned. KUB shows stone is migrated another 10mm lower. He has modest pain ow, lots of pressure in pelvis. He is passing clear urine Imaging Imaging: KUB Laboratory Results Past 24 Hours Test 08/17/17 23:35 08/18/17 00:45 08/18/17 01:06 08/18/17 05:38 Range/Units White Blood Count 14.33 9.60 4.8-10.8 K/uL Red Blood Count 4.26 4.09 4.7-6.1 M/uL Hemoglobin 12.9 12.3 14.0-18.0 g/dL Hematocrit 37.7 36.6 42-52 % Mean Corpuscular Volume 88.5 89.5 80-100 fL Mean Corpuscular Hemoglobin 30.3 30.1 25-34 pg Mean Corpuscular Hemoglobin Concent 34.2 33.6 32-36 g/dl Platelet Count 210 253 130-400 K/uL Mean Platelet Volume 11.6 11.2 7.4-10.4 fL Neutrophils (%) (Auto) 86.8 74.3 % Lymphocytes (%) (Auto) 6.6 17.0 % Monocytes (%) (Auto) 5.6 7.3 % Eosinophils (%) (Auto) 0.7 1.0 % Basophils (%) (Auto) 0.1 0.2 % Neutrophils # (Auto) 12.43 7.13 1.4-6.5 K/uL Lymphocytes # (Auto) 0.95 1.63 1.2-3.4 K/uL Monocytes # (Auto) 0.80 0.70 0.11-0.59 K/uL Eosinophils # (Auto) 0.10 0.10 0-0.5 K/uL Basophils # (Auto) 0.02 0.02 0-0.2 K/uL RDW Standard Deviation 45.3 46.0 36.4-46.3 fL RDW Coefficient of Variation 14.0 14.0 11.5-14.5 % Immature Granulocyte % (Auto) 0.2 0.2 % Immature Granulocyte # (Auto) 0.03 0.02 0.00-0.02 K/uL Platelet Estimate NORMAL Sodium Level 137 137 136-145 mmol/L Potassium Level 3.2 4.3 3.5-5.1 mmol/L Chloride Level 102 105 98-107 mmol/L Carbon Dioxide Level 28 29 21-32 mmol/L Anion Gap 8.0 3.0 3-11 mmol/L Blood Urea Nitrogen 13 9 7-18 mg/dl Creatinine 1.05 0.78 0.60-1.40 mg/dl Est Creatinine Clear Calc Drug Dose 94.8 127.6 ml/min Estimated GFR () 90.3 115.3 Estimated GFR (Non- 77.9 99.5 BUN/Creatinine Ratio 11.9 12.0 10-20 Random Glucose 155 95 70-99 mg/dl Estimated Average Glucose 105 mg/dl Hemoglobin A1c 5.3 4.5-5.6 % Calcium Level 8.7 8.1 8.5-10.1 mg/dl Magnesium Level 1.8 1.8-2.4 mg/dl Total Bilirubin 0.3 0.2-1 mg/dl Direct Bilirubin < 0.1 0-0.2 mg/dl Aspartate Amino Transf (AST/SGOT) 12 15-37 U/L Alanine Aminotransferase (ALT/SGPT) 19 12-78 U/L Alkaline Phosphatase 79 45-117 U/L Total Protein 6.7 6.4-8.2 gm/dl Albumin 3.7 3.4-5.0 gm/dl Urine Color YELLOW Urine Appearance CLOUDY CLEAR Urine pH 5.0 4.5-7.5 Urine Specific [place] 1.024 1.000-1.030 Urine Protein TRACE NEG Urine Glucose (UA) NEG NEG Urine Ketones TRACE NEG Urine Occult Blood 3+ NEG Urine Nitrite NEG NEG Urine Bilirubin NEG NEG Urine Urobilinogen NEG NEG Urine Leukocyte Esterase TRACE NEG Urine WBC (Auto) 1-5 0-5 /hpf Urine RBC (Auto) 5-10 0-4 /hpf Urine Hyaline Casts (Auto) 5-10 0-5 /lpf Urine Epithelial Cells (Auto) 5-10 0-5 /lpf Urine Bacteria (Auto) NEG NEG Urine Crystals CALCIUM OXALATE NONE PRSENT Bedside Lactic Acid Venous 0.47 0.90-1.70 mmol/L Microbiology Results 08/18/17 Blood Culture, Received Pending 08/18/17 Blood Culture, Received Pending 08/18/17 Urine Culture, Received Pending Labs were reviewed and are within normal limits unless listed below. Labs are available in the chart and at [facility] Problem List Medical Problems: (1) Bronchitis Status: Acute (2) Hydronephrosis with renal and ureteral calculous obstruction Status: Acute (3) Intractable vomiting Status: Acute (4) Lung nodule Status: Acute (5) Rash and nonspecific skin eruption Status: Acute (6) Right ureteral calculus Status: Acute Past History no pertinent history, lung disease Family History Cancer Social History Hx Tobacco Use In Past Year?: Yes Smoking: less than 1 pack/day Alcohol: never Drug use: none Marital status: Housing status: lives with family Occupation status: employed, unemployed History of MDRO No Allergies Coded Allergies: No Known Allergies (Verified , 08/17/17) Medications Home Medications: Home Meds and Scripts Medications Dose Route/Sig Max Daily Dose Days Date Category Advil (Ibuprofen) 200 Mg Tab 400 Mg PO Q4H PRN 15 08/15/17 Rx Tramadol HCl 50 Mg Tab 50 Mg PO Q6H PRN 7 08/15/17 Rx Tamsulosin HCl 0.4 Mg Cap 0.4 Mg PO QAM 30 08/15/17 Rx Inpatient Medications: Current Inpatient Medications Medications (Trade) Dose Ordered Sig/Antelmo Route Start Time Stop Time Status Last Admin Dose Admin Acetaminophen (Tylenol Tab) 650 mg Q4H PRN PO 08/18/17 01:15 09/17/17 01:14 Nicotine (Nicoderm Cq 14MG Patch) 1 patch QAM TD 08/18/17 09:00 09/17/17 08:59 08/18/17 08:01 1 PATCH Miscellaneous (Remove Nicoderm Patch) 1 ea HS N/A 08/18/17 21:00 09/17/17 20:59 Prochlorperazine Edisylate 5 mg/ Syringe 5 ml @ 5 mls/min Q6H PRN IV 08/18/17 01:15 09/17/17 01:14 Lorazepam (Ativan Inj) 0.5 mg Q4H PRN IV 08/18/17 01:15 09/17/17 01:14 Ketorolac Tromethamine (Toradol Inj) 30 mg Q6H PRN IV 08/18/17 01:15 08/23/17 01:14 Morphine Sulfate (MoRPHine SULFATE INJ) 4 mg Q3H PRN IV 08/18/17 01:15 09/01/17 01:14 Tamsulosin HCl (Flomax Cap) 0.4 mg QAM PO 08/18/17 09:00 09/17/17 08:59 08/18/17 08:02 0.4 MG Tramadol HCl (Ultram Tab) `1-2 tabs for pain 1 tab ... Q6H PRN PO 08/18/17 01:15 09/17/17 01:14 Dextrose/Sodium Chloride 1,000 ml @ 125 mls/hr Q8H IV 08/18/17 09:45 09/17/17 09:44 08/18/17 19:15 125 MLS/HR Ceftriaxone Sodium 1 gm/ Dextrose 50 ml @ 100 mls/hr Q24H IV 08/18/17 11:00 08/28/17 10:59 08/18/17 12:08 100 MLS/HR Review of Systems Review of Systems Constitutional: No fever, No chills Neurological: No dizzy, No passing out Gastrointestinal: + abdominal pain, + indigestion, + nausea, + constipation, No diarrhea Cardiovascular: No chest pain, No palpitations, No swelling ankles/feet Respiratory: + chronic cough, No shortness of breath Male : + frequent urination, + kidney stones, + nocturia more than once/night , No painful urination, No weak stream Physical Exam Vital Signs: Vital Signs Past 12 Hours Date Time Temp Pulse Resp B/P (MAP) Pulse Ox O2 Delivery O2 Flow Rate FiO2 08/18/17 15:20 94 Room Air 08/18/17 15:11 36.4 71 18 136/75 (95) 94 Room Air 08/18/17 11:48 36.3 71 18 138/92 (107) 95 Room Air 08/18/17 09:48 97 Room Air Physical Exam: General Appearance: WD/WN, no apparent distress, + thin Eyes: bilateral eyes normal inspection ENT: hearing grossly normal Neck: supple, no adenopathy Respiratory/Chest: normal breath sounds, no respiratory distress, no accessory muscle use Cardiovascular: regular rate, rhythm Extremities: non-tender, normal inspection, no pedal edema, no calf tenderness Neurologic/Psychiatric: alert, normal mood/affect, oriented x 3 Assessment & Plan Assessment & Plan right uvj stone he is agreeable to surgery plan right uscope laser litho basket stone extraction 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
[2017-08-18] MEDS: CONRAY 30% 150ML BOTTLE ONE ×2 (21:48→23:19)
[2017-08-18] MEDS ORDERED: LIDOCAINE HCL 2% 2 ML VIAL (20MG/ML) ONE (22:26)
[2017-08-18] MEDS ORDERED: PROPOFOL IV EMULSION 10 MG/ML 20 ML VIAL IV ONE (22:26)
[2017-08-18] MEDS ORDERED: FENTANYL CITRATE INJ 50 MCG/1 ML 2 ML VIAL ONE (22:28)
[2017-08-18] MEDS ORDERED: EpHEDrine SULFATE INJ 50 MG/ML AMP IV PRN (22:30)
[2017-08-18] MEDS ORDERED: ATROPINE SULFATE 0.1 MG/ML 5ML SYR IV PRN (22:30)
[2017-08-18] MEDS ORDERED: ONDANSETRON INJ 2 MG/ML 2 ML VIAL IV PRN (22:30)
[2017-08-18] MEDS ORDERED: FENTANYL CITRATE INJ 50 MCG/1 ML 2 ML VIAL IV PRN (22:30)
[2017-08-18] MEDS ORDERED: BELLADONNA/OPIUM SUPP 60 MG SUPP PR ONE (23:03)
--- NOTE | 2017-08-18 23:14 | [facility] Operative Report ---
Operative Report Operative Date Aug 18, 2017. Pre-Operative Diagnosis Right Ureteral stone Post-Operative Diagnosis Right Ureteral stone Procedure(s) Performed Cystoscopy, right Ureteroscopy; basket extraction of stone Surgeon Dr. Montalvo Hvac Sales Engineer Surgeon(s) none Estimated Blood Loss 0 ML Findings radio-opaque right distal ureteral stone Fluids 450mL Specimens Permanent Specimen A. Right Ureteral Stone for Chemical anaylsis Drains none Anesthesia LMA Complication(s) None Disposition Recovery Room / PACU Indications right distal ureteral stone has not passed and failed outpatient management with pain Description of Procedure Patient was given general LMA anesthesia and placed in lithotomy position. His genitals were prepped and draped in sterile fashion. Time out held with team. I placed a 21 fr rigid cystoscope to bladder. He is very tight tot he scope and the meatus and fossa navicularis. The rest of urethra is unremarkable. The prostate is medium and short. The UOs are close to bladder neck. The right Uo is raised and I can see the stone in the most distal UVJ. I passed a sensor wire up right ureter and then placed a semirigid ureteroscope into bladder along side wire. I placed the ureteroscope just at the UO and used a basket to 2.4 tipless to grasp stone under vision and pull it out of the ureter. It is tight but comes whole. I then placed the semirigid ureteroscope into the right distal ureter to confirm all pieces are removed. There is mild hydro ureter above the stone. I left bladder empty and concluded case. I placed a belladonna and opium suppository for post-op pain. He transferred to recovery under my escort, in stable condition. 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 Any exceptions are noted below.
[2017-08-18] MEDS ORDERED: PHENAZOPYRIDINE HCL 200 MG TAB PO PRN (23:15)
--- NOTE | 2017-08-18 23:29 | Anesthesiology Progress Note ---
Anesthesia Post Op Note Date & Time Aug 18, 2017 at 23:29 Vital Signs Pain Intensity: 0.0 Vital Signs Past 12 Hours Date Time Temp Pulse Resp B/P (MAP) Pulse Ox O2 Delivery O2 Flow Rate FiO2 08/18/17 15:20 94 Room Air 08/18/17 15:11 36.4 71 18 136/75 (95) 94 Room Air 08/18/17 11:48 36.3 71 18 138/92 (107) 95 Room Air Notes Mental Status: alert / awake / arousable, participated in evaluation Pt Amnestic to Procedure: Yes Nausea / Vomiting: adequately controlled Pain: adequately controlled Airway Patency, RR, SpO2: stable & adequate BP & HR: stable & adequate Hydration State: stable & adequate Anesthetic Complications: no major complications apparent
[2017-08-19] VITALS (8 sets, daily range): BP systolic 129–155; BP diastolic 74–93; PULSE 58–85; TEMP 36.4–36.6; O2SAT 95–98
[2017-08-19] MEDS: D5W AND NSS 1,000 ML IV SCH ×3 (02:30→14:45)
--- NOTE | 2017-08-19 06:59 | DIAGNOSTIC IMAGING REPORT ---
RETROGRADE INCLUDES KUB CLINICAL HISTORY: Right sided lithotripsy. Retrograde exam. COMPARISON STUDY: CT of the abdomen and pelvis August 13, 2017 and KUB August 18, 2017. Fluoroscopy time: 6.4 seconds. FINDINGS: No fluoroscopic images was submitted for interpretation. IMPRESSION: No fluoroscopic image available for interpretation. Electronically signed by: Juan Boswell M.D. 08/19/2017 6:57 AM Dictated Date/Time: 08/19/2017 6:56 AM
--- NOTE | 2017-08-19 09:02 | Anesthesiology Progress Note ---
Anesthesia Post Op Note Date & Time Aug 19, 2017 at 09:02 Vital Signs Pain Intensity: 0 Vital Signs Past 12 Hours Date Time Temp Pulse Resp B/P (MAP) Pulse Ox O2 Delivery O2 Flow Rate FiO2 08/19/17 07:03 36.6 65 16 129/87 (101) 96 Room Air 08/19/17 03:05 36.6 58 18 138/90 (106) 96 Room Air 08/19/17 02:05 36.5 64 18 143/87 (105) 95 Room Air 08/19/17 00:35 36.4 62 16 151/93 (112) 95 Room Air 08/19/17 00:05 95 Room Air 08/19/17 00:05 Room Air 08/19/17 00:05 36.5 70 18 155/91 (112) 96 Room Air 08/18/17 23:55 36.4 64 18 141/88 (101) 95 Room Air 08/18/17 23:45 68 18 136/86 (95) 95 Room Air 10 08/18/17 23:35 67 18 130/81 (93) 99 Oxymask 10 08/18/17 23:25 36.3 72 18 132/95 (103) 99 Oxymask 10 Notes Mental Status: alert / awake / arousable, participated in evaluation Pt Amnestic to Procedure: Yes Nausea / Vomiting: adequately controlled Pain: adequately controlled Airway Patency, RR, SpO2: stable & adequate BP & HR: stable & adequate Hydration State: stable & adequate Anesthetic Complications: no major complications apparent
[2017-08-19] MEDS: TAMSULOSIN HCL 0.4 MG CAP PO SCH (09:39)
[2017-08-19] MEDS: NICOTINE 14 MG/24 HR TDSY TD SCH (09:40)
--- NOTE | 2017-08-19 17:24 | Progress Note ---
Medicine Progress Note Date & Time of Visit: Aug 19, 2017 at 17:10. Subjective Pt was seen and examined Lying in bed with no distress Pt said that he feels fine He said that he does not have any pain Denies any chest pain, palpitation, dizziness and SOB Objective Last 8 Hrs Date Time Temp Pulse Resp B/P (MAP) Pulse Ox O2 Delivery O2 Flow Rate FiO2 08/19/17 16:13 36.6 73 20 146/74 (98) 98 Room Air 08/19/17 15:25 Room Air 08/19/17 12:10 36.4 85 16 142/88 (106) 95 Room Air Physical Exam: General- No acute distress Head- atraumatic Eyes- PERRL, EOMI ENT- oropharynx clear Neck- supple, no JVD Lungs- clear to auscultation Abdomen- normal bowel sounds, soft Extremities- no pretibial edema, no calf tenderness Neuro- alert, oriented x 3; PERRL, EOMI Skin- warm & dry Laboratory Results: Last 24 Hours Test 08/18/17 23:00 Assessment & Plan RIGHT URETERAL STONE Present with Right sided colic pain CT abd/pelvis showed obstructing 4 mm calculus in the distal right ureter with resultant mild right hydroureteronephrosis. KUB showed slight distal migration of the 4 mm distal right ureteral calculus, now likely at the ureterovesical junction. S/P day 1 Cystoscopy, right Ureteroscopy; basket extraction of stone by Selvin Latham Urine cx grew pinpoint Rocephin discontinued Pyridium for dysuria x 3 days flomax daily for 7 days oral pain meds as needed Subpleural nodule, incidental finding on CT abdomen and pelvis. - CT abdomen showed Solid 3 mm right lower lobe pulmonary nodule. Follow-up per [employer] 2017 recommendations. - may need dedicated CT chest - close follow up, further management as outpatient Tobacco abuse Counselling on smoking cessation DVT Px ON SCDs Disposition Discharge home today Consultants: Urology Current Inpatient Medications: Current Inpatient Medications Medications (Trade) Dose Ordered Sig/Antelmo Route Start Time Stop Time Status Last Admin Dose Admin Acetaminophen (Tylenol Tab) 650 mg Q4H PRN PO 08/18/17 01:15 09/17/17 01:14 Nicotine (Nicoderm Cq 14MG Patch) 1 patch QAM TD 08/18/17 09:00 1/3/18 08:59 08/19/17 09:40 1 PATCH Miscellaneous (Remove Nicoderm Patch) 1 ea HS N/A 08/18/17 21:00 09/17/17 20:59 08/18/17 21:24 1 EA Prochlorperazine Edisylate 5 mg/ Syringe 5 ml @ 5 mls/min Q6H PRN IV 08/18/17 01:15 09/17/17 01:14 Lorazepam (Ativan Inj) 0.5 mg Q4H PRN IV 08/18/17 01:15 09/17/17 01:14 Ketorolac Tromethamine (Toradol Inj) 30 mg Q6H PRN IV 08/18/17 01:15 08/23/17 01:14 Morphine Sulfate (MoRPHine SULFATE INJ) 4 mg Q3H PRN IV 08/18/17 01:15 09/01/17 01:14 Tamsulosin HCl (Flomax Cap) 0.4 mg QAM PO 08/18/17 09:00 09/17/17 08:59 08/19/17 09:39 0.4 MG Tramadol HCl (Ultram Tab) `1-2 tabs for pain 1 tab ... Q6H PRN PO 08/18/17 01:15 09/17/17 01:14 Dextrose/Sodium Chloride 1,000 ml @ 125 mls/hr Q8H IV 08/18/17 09:45 09/17/17 09:44 08/19/17 14:45 125 MLS/HR Phenazopyridine HCl (Pyridium Tab) 200 mg TID PRN PO 08/18/17 23:15 09/17/17 23:14
[2017-08-19] MEDS ORDERED: PHEN-1043 PO (17:29)
[2017-08-19] MEDS ORDERED: ULT50X PO ×2 (17:29→17:33)
--- NOTE | 2017-08-19 17:37 | Discharge Instructions ---
Discharge Instructions Date of Service Aug 19, 2017. Admission Reason for Admission: Renal Colic Discharge Discharge Diagnosis / Problem: RIGHT URETERAL STONE, TOBACCO ABUSE Discharge Goals Goal(s): Decrease discomfort, Improve function, Improve disease control Activity Recommendations Activity Limitations: resume your previous activity (as tolerated) . Instructions / Follow-Up Instructions / Follow-Up Follow up with your primary care provider Dr. Aguilar on 08/26 @ 1 PM Follow up with Urology Dr. Montalvo between 2 to 4 weeks Tramadol as needed for pain Please do not drive or operate any machine after taking the tramadol Current Hospital Diet Patient's current hospital diet: Regular Diet Discharge Diet Recommended Diet: Regular Diet Procedures Procedures Performed: Cystoscopy, right Ureteroscopy; basket extraction of stone Pending Studies Studies pending at discharge: yes List of pending studies: Urine cultures Laboratory Results Hemoglobin A1c Test 08/17/17 23:35 Range/Units Estimated Average Glucose 105 mg/dl Hemoglobin A1c 5.3 4.5-5.6 % Medical Emergencies . Who to Call and When: Medical Emergencies: If at any time you feel your situation is an emergency, please call 911 immediately. . Non-Emergent Contact Non-Emergency issues call your: Primary Care Provider, Urologist Call Non-Emergent contact if: you have a fever, you have any medication questions . . "Provider Documentation" section prepared by Tylor Carson. . VTE Core Measure Inpt VTE Proph given/why not?: SCD's [place] Drug Monitoring Program Search Results: no issues identified
--- NOTE | 2017-08-20 07:48 | Discharge Summary ---
Discharge Summary Date of Service Aug 20, 2017. Discharge Summary Admission Date: Aug 18, 2017 at 00:58 Discharge Date: Aug 19, 2017 Discharge Disposition: Home Principal Diagnosis: RIGHT URETERAL STONE Secondary Diagnoses/Problems: Subpleural nodule Tobacco abuse Procedures: RETROGRADE INCLUDES KUB CLINICAL HISTORY: Right sided lithotripsy. Retrograde exam. COMPARISON STUDY: CT of the abdomen and pelvis August 13, 2017 and KUB August 18, 2017. Fluoroscopy time: 6.4 seconds. FINDINGS: No fluoroscopic images was submitted for interpretation. IMPRESSION: No fluoroscopic image available for interpretation. Electronically signed by: Juan Boswell M.D. 08/19/2017 6:57 AM Dictated Date/Time: 08/19/2017 6:56 AM KUB CLINICAL HISTORY: Right flank pain. Evaluate for right ureteral stone. COMPARISON STUDY: CT of the abdomen and pelvis August 13, 2017 and KUB August 14, 2017. FINDINGS: There has been slight distal migration of the 4 mm distal right ureteral calculus, now likely at the ureterovesical junction. No additional urinary calculi are identified. IMPRESSION: Slight distal migration of the 4 mm distal right ureteral calculus, now likely at the ureterovesical junction. Electronically signed by: Juan Boswell M.D. 08/18/2017 6:48 AM Dictated Date/Time: 08/18/2017 6:45 AM Consultations: Urology Medication Reconciliation New Medications: Phenazopyridine HCl (Phenazopyridine HCl) 200 Mg Tab 200 MG PO TID PRN for Bladder pain for 3 Days, #9 TAB Changed Medications: Tramadol HCl (Tramadol HCl) 50 Mg Tab 50 MG PO Q12 PRN for Pain for 5 Days, #10 TAB 0 Refills (Changed from: Q8; 15) Continued Medications: Ibuprofen (Advil) 200 Mg Tab 400 MG PO Q4H PRN for Pain for 15 Days, TAB Tamsulosin HCl (Tamsulosin HCl) 0.4 Mg Cap 0.4 MG PO QAM for 30 Days, #30 CAP 1 Refill Admission Information HPI (per Admitting provider): CHIEF COMPLAINT: Right abdominal pain. HISTORY OF PRESENT ILLNESS: History obtained from patient and records. Medical history significant for urolithiasis, ongoing tobacco abuse, pulmonary nodules. Recent confinement a few days ago for right ureteral stone. Patient seen by urology, but patient preferred to wait for stone passage. Patient was later comfortable going home. Few hours later patient had recurrence of achy right-sided abdominal pain similar Kidney stone episode, associated with some nausea, emesis. Good bowel movement. No fever, no chills. Patient given IV Cefepime at the ER. Physical Exam (per Admitting): PHYSICAL EXAMINATION: VITAL SIGNS: Blood pressure was noted to be 170/90, later 130/80, pulse rate 69, RR 18, temperature 36.6, sats 95 on room air. GENERAL: Noted to be obese, slightly uncomfortable, no respiratory distress. SKIN: Pallor, warm. HEENT: Pale palpebral conjuctivae. No ptosis. Dry buccal mucosa. NECK: Short neck. No tenderness. LUNGS: Decreased breath sounds. No tenderness. HEART: Regular rate and rhythm. No murmur. ABDOMEN: Minimal tenderness to right lower quadrant. Some distention. EXTREMITIES: No edema, no tenderness. No gross deformities. NEUROLOGIC: Coherent. No gross focality. Hospital Course RIGHT URETERAL STONE Present with Right sided colic pain CT abd/pelvis showed obstructing 4 mm calculus in the distal right ureter with resultant mild right hydroureteronephrosis. KUB showed slight distal migration of the 4 mm distal right ureteral calculus, now likely at the ureterovesical junction. S/P day 1 Cystoscopy, right Ureteroscopy; basket extraction of stone by Selvin Latham Urine cx grew pinpoint Rocephin discontinued Pyridium for dysuria x 3 days flomax daily for 7 days oral pain meds as needed Subpleural nodule, incidental finding on CT abdomen and pelvis. - CT abdomen showed Solid 3 mm right lower lobe pulmonary nodule. Follow-up per [employer] 2017 recommendations. - may need dedicated CT chest - close follow up, further management as outpatient Tobacco abuse Counselling on smoking cessation DVT Px ON SCDs Disposition Discharge home today Total time spent on discharge = 35 minutes This includes examination of the patient, discharge planning, medication reconciliation, and communication with other providers. Discharge Instructions Discharge Instructions Date of Service Aug 19, 2017. Admission Reason for Admission: Renal Colic Discharge Discharge Diagnosis / Problem: RIGHT URETERAL STONE, TOBACCO ABUSE Discharge Goals Goal(s): Decrease discomfort, Improve function, Improve disease control Activity Recommendations Activity Limitations: resume your previous activity (as tolerated) . Instructions / Follow-Up Instructions / Follow-Up Follow up with your primary care provider Dr. Aguilar on 08/26 @ 1 PM Follow up with Urology Dr. Montalvo between 2 to 4 weeks Tramadol as needed for pain Please do not drive or operate any machine after taking the tramadol Current Hospital Diet Patient's current hospital diet: Regular Diet Discharge Diet Recommended Diet: Regular Diet Procedures Procedures Performed: Cystoscopy, right Ureteroscopy; basket extraction of stone Pending Studies Studies pending at discharge: yes List of pending studies: Urine cultures Laboratory Results Hemoglobin A1c Test 08/17/17 23:35 Range/Units Estimated Average Glucose 105 mg/dl Hemoglobin A1c 5.3 4.5-5.6 % Medical Emergencies . Who to Call and When: Medical Emergencies: If at any time you feel your situation is an emergency, please call 911 immediately. . Non-Emergent Contact Non-Emergency issues call your: Primary Care Provider, Urologist Call Non-Emergent contact if: you have a fever, you have any medication questions . . "Provider Documentation" section prepared by Tylor Carson. . VTE Core Measure Inpt VTE Proph given/why not?: SCD's [place] Drug Monitoring Program Search Results: no issues identified Additional Copies To Romario Aguilar M.D.
== END 2017-08-19 18:41 | disposition home or self-care (01) | DRG 669 ==
LOC: C.EDB 23:06 → C.MSN 08-18 00:58 → ENRESERV 08-18 01:32
PROVIDERS: ADMIT Internal Medicine; ATTEND Internal Medicine
PROC: 0TC68ZZ Extirpation of Matter from Right Ureter, Via Natural or Artificial Opening Endoscopic (ICD-10-PCS; principal; 2017-08-18 17:00)
DX: N13.2 Hydronephrosis with renal and ureteral calculous obstruction (principal); E87.6 Hypokalemia; R91.8 Other nonspecific abnormal finding of lung field; Z79.899 Other long term (current) drug therapy; F17.200 Nicotine dependence, unspecified, uncomplicated

== ENCOUNTER 2024-03-07 16:29 | Inpatient (IN) ==
[2024-03-07 17:36] LABS: Basophils # (auto) 0.03 K/uL (0.00-0.20); Basophils % (auto) 0.2 %; Eosinophils # (auto) 0.03 K/uL (0.00-0.50); Eosinophils % (auto) 0.2 %; Hematocrit (blood only) 43.5 % (42.0-52.0); Hemoglobin 14.9 g/dl (14.0-18.0); Immature Granulocytes # (auto) 0.04 K/uL (0.01-0.20); Immature Granulocytes % (auto) 0.3 %; Lymphocytes # (auto) 0.96 K/uL (1.20-3.40); Lymphocytes % (auto) 7.5 %; Mean Corpuscular Hemoglobin 29.8 pg (25.0-34.0); Mean Corpuscular Hgb Conc 34.3 g/dL (32.0-36.0); Mean Platelet Volume 11.3 fL (9.4-12.4); Monocytes # (auto) 0.92 K/uL (0.11-0.59); Monocytes % (auto) 7.2 %; Neutrophils # (auto) 10.77 K/uL (1.40-6.50); Neutrophils % (auto) 84.6 %; Platelet Count 246 K/uL (130-400); RDW Coefficient of Variation 13.4 % (11.5-14.5); RDW Standard Deviation 42.7 fL (36.4-46.3); White Blood Count 12.75 K/ul (4.8-10.8)
[2024-03-07 17:49] LABS: Albumin Globulin Ratio 1.6 (0.9-2); Albumin Level 4.3 gm/dl (3.4-5.0); Bilirubin,Total 0.9 mg/dl (0.2-1.0); Calcium 9.1 mg/dl (8.6-10.3); Creatinine Clr Calc Pharmacy 88.9 ml/min; Est GFR (African American) 91.8 ml/min; Est GFR (Non-African American) 79.2 ml/min; Globulin 2.7 gm/dl (2.5-4.0); Potassium 3.9 mmol/L (3.5-5.1)
--- NOTE | 2024-03-07 18:51 | Emergency Department Note ---
Impression & Plan Preseptal cellulitis, Abscess, dental, Leukocytosis ED Provider Note NAME: DENICE ECHEVARRIA AGE: 63 SEX: M : 1960 ARRIVES VIA: Walk-In INFORMANT: Patient ED PROVIDER(S): Nicanor Patterson DO CHIEF COMPLAINT: Facial swelling HPI: Patient is a 63-year-old male who presents to the ER for right upper facial swelling and dental pain that started on Friday. Initially did not have pain and now the pain has occurred and is gotten worse. Is worse with chewing and eating. He is noticing swelling under his eye. Denies any pain with movement of his eye. No fevers. Admits to history of poor dentition. Denies any chest pain or shortness of breath. No swelling under the tongue. No trouble breathing or swallowing. ADDITIONAL HISTORY OBTAINED: Per HPI Chronic Medical/Social Conditions Affecting Care: Per HPI PAST MEDICAL HISTORY:See Below PAST SURGICAL HISTORY:See Below FAMILY HISTORY:See Below SOCIAL HISTORY:See Below HOME MEDICATIONS:See Below ALLERGIES:See Below VITALS:See Below PHYSICAL EXAMINATION: GENERAL: Sitting up in bed, alert, well appearing, well nourished, no distress, non-toxic EYE EXAM: normal conjunctiva. PERRL and EOM's grossly intact. FACE/oropharynx: Watery edema under the right eye with a swollen right cheek. Tenderness over the right upper jaw started with the frontal incisors tracking back to the molars. Poor dentition. Posterior pharynx is unremarkable. Soft palate without swelling NECK: supple, no nuchal rigidity, no adenopathy, non-tender LUNGS: Clear to auscultation. Normal chest wall mechanics HEART: no murmurs, S1 normal and S2 normal ABDOMEN: abdomen soft, non-tender, normo-active bowel sounds, no masses, no rebound or guarding. BACK: Back is symmetrical on inspection and there is no deformity, no midline tenderness, no CVA tenderness. SKIN: no rashes and no bruising UPPER EXTREMITIES: upper extremities are grossly normal. LOWER EXTREMITIES: No pitting edema. NEURO EXAM: Normal sensorium, cranial nerves II-XII grossly intact, normal speech, no gross weakness of arms, no gross weakness of legs. No drift. Finger to nose intact. Gross sensation intact. MEDICAL DECISION MAKING: Patient is a 63-year-old male who presents ER for above-stated complaint. IV was established blood work was obtained. Labs show leukocytosis of 12.5 thousand. No significant anemia. BMP on LFTs bilirubin was unremarkable. On exam he appears to have a preseptal cellulitis. CT of the face confirms a dental abscess. He was given IV Unasyn. Updated at bedside. Discussed case with the hospitalist for further evaluation management and treatment. Will likely need to consult OMFS in the morning. Consults/Care Managements Discussions: Per MDM Triage Nursing notes reviewed. Limited review of prior medical records performed Vital Signs: reviewed and remarkable for HTN Differential diagnosis: Differential diagnoses includes but is not limited to dental fracture, dental carries, Ludewig's angina, infected tooth, prostatitis, retropharyngeal abscess, peritonsillar and dental abscess. ER treatment provided: See below Diagnostics interpreted by me include EKG and cardiac monitoring as listed below: -Cardiac Monitoring: An order was placed for continuous cardiac monitoring. The monitor shows a rate of 80 with sinus rhythm. -ECG: none -Laboratory studies:Interpreted by me as stated above in MDM and shown below. Imaging studies: Xrays: As interpreted by me:none CTs show: CT of the face per my review shows no obvious free air CT of the face per radiology as described above Procedures:none Critical Care: None Past Med/Surg History Problem List (Updated 03/08/24 @ 00:48 by Nicanor Patterson DO) Leukocytosis (Acute) Abscess, dental (Acute) Preseptal cellulitis (Acute) Periapical abscess (Acute) Dental decay (Acute) Acute oral pain (Acute) Tobacco abuse (Chronic) Lung nodule (Chronic) Medical History History of kidney stones Surgical History History of lithotripsy Family History Other Cancer Heart disease Social History Smoking Status: Current every day smoker Tobacco Type: Cigarettes Preferred Language: Ukrainian marital status: Single current occupational status: employed Feels Safe at Home: Yes Allergies Allergies Allergy/AdvReac Type Severity Reaction Status Date / Time No Known Allergies Allergy Unknown Verified 12/16/23 17:49 Home Meds Home Medications Medication Instructions Recorded Confirmed chlorpheniramine 4 mg-DM 30 0 ml PO DIRECTED PRN COLD/FLU 12/16/23 12/16/23 mg-acetaminophen 650 mg/30 mL oral SYMPTOMS liquid (Vicks NyQuil Cold/Flu (cpm)) Previous Rx's Medication Instructions Recorded amoxicillin 875 mg-potassium 1 tab PO BID 7 days #14 tabs 03/07/24 clavulanate 125 mg tablet Results & Data (ED) Vital Signs Vital Signs - 24 hr 03/07/24 16:32 03/07/24 20:09 03/07/24 21:14 Temperature 37.5 C Temperature Source Temporal Artery Scan Pulse Rate 92 H 86 Pulse Rate [Right Finger] 80 Respiratory Rate 19 17 Respiratory Effort / Characteristics Non-Labored Spontaneous Respiratory Depth Normal Blood Pressure 151/87 H Blood Pressure [Right Arm] 152/98 H Blood Pressure Mean 108 Blood Pressure Mean [Right Arm] 116 Pulse Oximetry 96 94 Oxygen Delivery Method Room Air Room Air Sepsis Recent Fever Within 48 Hours No Sepsis New/Unexplained Change in Mental Status N/A Sepsis Action Taken by Nursing No Action Required 03/08/24 00:05 Temperature Temperature Source Pulse Rate 76 Pulse Rate [Right Finger] Respiratory Rate Respiratory Effort / Characteristics Respiratory Depth Blood Pressure Blood Pressure [Right Arm] Blood Pressure Mean Blood Pressure Mean [Right Arm] Pulse Oximetry Oxygen Delivery Method Sepsis Recent Fever Within 48 Hours Sepsis New/Unexplained Change in Mental Status Sepsis Action Taken by Nursing Laboratory Data 03/07/24 17:13 03/07/24 17:13 Lab Results 03/07/24 Range/Units 17:13 WBC 12.75 H (4.8-10.8) K/ul RBC 5.00 (4.70-6.10) M/uL Hgb 14.9 (14.0-18.0) g/dl Hct 43.5 (42.0-52.0) % MCV 87.0 (80.0-100.0) fL MCH 29.8 (25.0-34.0) pg MCHC 34.3 (32.0-36.0) g/dL RDW Std Deviation 42.7 (36.4-46.3) fL RDW Coeff of Bora 13.4 (11.5-14.5) % Plt Count 246 (130-400) K/uL MPV 11.3 (9.4-12.4) fL Immature Gran % (Auto) 0.3 % Neut % (Auto) 84.6 % Lymph % (Auto) 7.5 % [place] % (Auto) 7.2 % Eos % (Auto) 0.2 % Baso % (Auto) 0.2 % Neut # (Auto) 10.77 H (1.40-6.50) K/uL Lymph # (Auto) 0.96 L (1.20-3.40) K/uL [place] # (Auto) 0.92 H (0.11-0.59) K/uL Eos # (Auto) 0.03 (0.00-0.50) K/uL Baso # (Auto) 0.03 (0.00-0.20) K/uL Immature Gran # (Auto) 0.04 (0.01-0.20) K/uL Sodium 136 (136-145) mmol/L Potassium 3.9 (3.5-5.1) mmol/L Chloride 103 (98-107) mmol/L Carbon Dioxide 28 (21-32) mmol/L Anion Gap 5 (3-11) BUN 13 (6-23) mg/dl Creatinine 1.00 (0.6-1.4) mg/dl Est Cr Clr Drug Dosing 88.9 ml/min Est GFR ( Amer) 91.8 ml/min Est GFR (Non-Af Amer) 79.2 ml/min BUN/Creatinine Ratio 13.0 (10-20) Glucose 97 (70-99(Fasting)) mg/dl Calcium 9.1 (8.6-10.3) mg/dl Total Bilirubin 0.9 (0.2-1.0) mg/dl AST 13 (13-39) U/L ALT 9 (7-52) U/L Alkaline Phosphatase 69 (34-104) U/L Total Protein 7.0 (6.0-8.3) gm/dl Albumin 4.3 (3.4-5.0) gm/dl Globulin 2.7 (2.5-4.0) gm/dl Albumin/Globulin Ratio 1.6 (0.9-2) Administered Medications Discontinued Medications Ampicillin Sodium/Sulbactam Sodium 3,000 mg/ Sodium Chloride 100 mls @ 200 mls/hr IV NOW STA Stop: 03/07/24 19:01 Last Infusion: 03/07/24 21:05 Dose: Infused Documented By: Admin: 03/07/24 20:10 Dose: 200 mls/hr Documented By: JULIAN Ioversol (Optiray 320 100ml) 93 ml IV ONCE ONE Stop: 03/07/24 19:37 Last Admin: 03/07/24 19:37 Dose: 93 ml Documented By: JIM Imaging Data Radiologist's Impression: Face CT 03/07/24 18:32 Exam(s): CT FACIAL With Contrast IV Amt: 93 ml optiray 320 EXAM: CT Maxillofacial With Intravenous Contrast CLINICAL HISTORY: R facial swelling. TECHNIQUE: Axial computed tomography images of the face with intravenous contrast. CTDI is 8.89 mGy and DLP is 191.48 mGy-cm. Automated exposure control was utilized for the study. A dose lowering technique was utilized adhering to the principles of ALARA. CONTRAST: Patient received 93 ml optiray 320 of IV contrast COMPARISON: No relevant prior studies available. FINDINGS: No acute fracture. Diffuse periodontal disease with multiple dental caries. Missing right maxillary central incisor. Prominent right maxillary lateral incisor dental caries with periapical lucency consistent with periapical abscess. Multiple additional periapical lucencies predominately in the maxilla. Right facial subcutaneous soft tissue swelling with focal changes anterior to the maxilla bilaterally. Small 8 x 5.5 mm relatively hypodense focus overlying the right maxilla at the level of the second incisor suspicious for small subperiosteal abscess. No gross bony destruction. No other focal collection. No radiopaque foreign body. No acute fracture. Orbits are unremarkable. Right maxillary sinus mucous retention cyst. No air-fluid level. IMPRESSION: Extensive periodontal disease including multiple dental caries and periapical abscesses including the right lateral maxillary incisor. Right facial subcutaneous soft tissue swelling with a focal suspected small subperiosteal abscess overlying the right maxilla at the level of the lateral incisor. Electronically signed by: Niraj Pineda M.D. 03/07/24 22:46 PM Discharge Plan Visit Data Chief Complaint: Dental/Oral Stated Complaint: FACIAL SWELLING, ABCESSED TOOTH ED Provider: Nicanor Patterson Discharge Problem: Preseptal cellulitis, Abscess, dental, Leukocytosis Forms Stand Alone Forms: [facility] Crunched Prescriptions Prescriptions: No Action amoxicillin-pot clavulanate 875-125 mg tablet 1 tab PO BID 7 Days Qty: 14 0RF Vicks NyQuil Cold/Flu (cpm) 4-30-650 mg/30 mL Liquid 0 ml PO DIRECTED PRN (Reason: COLD/FLU SYMPTOMS) Rx Instructions: DOSE PER PKG INSTRUCTIONS Referrals Referrals: Paul Clay, [employer] [Primary Care Provider] - Discharge Problem: Leukocytosis Qualifiers: Leukocytosis type: unspecified Qualified Code(s): D72.829 - Elevated white blood cell count, unspecified
[2024-03-07] MEDS: OPTIRAY 320 100ml IV ONE (19:37)
[2024-03-07] MEDS: AMPICILLIN/SULBACTAM SOD 3,000 MG in SODIUM CHLOR 0.9% MINI-B 100 ML IV STA (20:10)
--- NOTE | 2024-03-07 22:47 | CT Scan Report ---
Exam(s): CT FACIAL With Contrast IV Amt: 93 ml optiray 320 EXAM: CT Maxillofacial With Intravenous Contrast CLINICAL HISTORY: R facial swelling. TECHNIQUE: Axial computed tomography images of the face with intravenous contrast. CTDI is 8.89 mGy and DLP is 191.48 mGy-cm. Automated exposure control was utilized for the study. A dose lowering technique was utilized adhering to the principles of ALARA. CONTRAST: Patient received 93 ml optiray 320 of IV contrast COMPARISON: No relevant prior studies available. FINDINGS: No acute fracture. Diffuse periodontal disease with multiple dental caries. Missing right maxillary central incisor. Prominent right maxillary lateral incisor dental caries with periapical lucency consistent with periapical abscess. Multiple additional periapical lucencies predominately in the maxilla. Right facial subcutaneous soft tissue swelling with focal changes anterior to the maxilla bilaterally. Small 8 x 5.5 mm relatively hypodense focus overlying the right maxilla at the level of the second incisor suspicious for small subperiosteal abscess. No gross bony destruction. No other focal collection. No radiopaque foreign body. No acute fracture. Orbits are unremarkable. Right maxillary sinus mucous retention cyst. No air-fluid level. IMPRESSION: Extensive periodontal disease including multiple dental caries and periapical abscesses including the right lateral maxillary incisor. Right facial subcutaneous soft tissue swelling with a focal suspected small subperiosteal abscess overlying the right maxilla at the level of the lateral incisor. Electronically signed by: Niraj Pineda M.D. 03/07/24 22:46 PM
[2024-03-08] MEDS: ACETAMINOPHEN 325 MG TAB PO STA (03:44)
--- NOTE | 2024-03-08 04:32 | History & Physical Report ---
Date of Service March 08, 2024 Assessment & Plan (1) Facial cellulitis: Plan: 63-year-old male with past med history significant for asthma, ongoing tobacco use presents with right facial cellulitis and dental infection. Patient came to ER yesterday morning with worsening dental pain. Was discharged on Augmentin and [facility] to have [facility]. He took the antibiotic but start developing swelling of the face and also swelling below his right eye which prompted him to come to the ER. Denies any fevers. Was feeling nauseous. Has headache 6/10 severity. No blurred vision. Currently has some runny nose. No sore throat. No cough. No difficulty swallowing. He was only eating soft and liquid food today. Denies chest pain or shortness of breath. No abdominal pain. Normal bowel and bladder movements. Resting comfortably and hemodynamically stable. right facial cellulitis preseptal cellulitis dental infection IV Unasyn , IV fluids pain control n.p.o. for now oral surgery consult in a.m. asthma tobacco use albuterol as needed needs counseling DVT prophylaxis Lovenox disposition medical floor History of Present Illness Chief Complaint: Dental infection and right facial cellulitis Primary Care Provider: GLORIA PeterC 63-year-old male with past med history significant for asthma, ongoing tobacco use presents with right facial cellulitis and dental infection. Patient came to ER yesterday morning with worsening dental pain. Was discharged on Augmentin and [facility] to have his teeth pulled. He took the antibiotic but start developing swelling of the face and also swelling below his right eye which prompted him to come to the ER. Denies any fevers. Was feeling nauseous. Has headache 6/10 severity. No blurred vision. Currently has some runny nose. No sore throat. No cough. No difficulty swallowing. He was only eating soft and liquid food today. Denies chest pain or shortness of breath. No abdominal pain. Normal bowel and bladder movements. Resting comfortably and hemodynamically stable. Past medical's. As mentioned above past surgical history. Colonoscopy. Social history. Smokes half pack a day for last about 46 years. Denies alcohol use. No drug use. Family history. Father had heart disease. Mother had pancreatic cancer. 1 brother had pancreatic cancer. Another brother had colon cancer. Two sisters had breast cancer. Allergies Allergy/AdvReac Type Severity Reaction Status Date / Time No Known Allergies Allergy Unknown Verified 03/08/24 01:52 Home Medications Medication Instructions Recorded Confirmed Type amoxicillin 875 mg-potassium 1 tab PO BID 7 days #14 tabs 03/07/24 03/08/24 Rx clavulanate 125 mg tablet acetaminophen 500 mg tablet 1,000 mg PO Q6H PRN Pain 03/08/24 03/08/24 History (Tylenol Extra Strength) Past Med/Surg History Problem List (Updated 03/08/24 @ 04:30 by Quentin Garcia MD) Facial cellulitis Leukocytosis (Acute) Abscess, dental (Acute) Preseptal cellulitis (Acute) Periapical abscess (Acute) Dental decay (Acute) Acute oral pain (Acute) Tobacco abuse (Chronic) Lung nodule (Chronic) Medical History History of kidney stones Surgical History History of lithotripsy Family History Other Cancer Heart disease Social History Smoking Status: Current every day smoker Tobacco Type: Cigarettes Hx Alcohol Use: No Hx Substance Use: No Preferred Language: Sinhala Communication Ability: Effective Chain Dyer Required: No marital status: Single Current Living Situation: Family Current Living Situation Comment: Son current occupational status: employed Other Information That Helps Us Care for You: No Feels Safe at Home: Yes Safety Concerns: Feels Safe At This Time Assistive Devices: Glasses Review of Systems Review of Systems: All systems reviewed & are unremarkable except as noted in HPI & below Physical Exam Physical Exam: General- Not in distress Head- right sided face swollen and swollen sack seen below right eye Eyes- PERRL. ENT- oropharynx clear Neck- supple, no JVD. Lungs- clear to auscultation no wheezing or crackles. Heart- regular rate and rhythm; no murmur, no gallop. Abdomen- normal bowel sounds, soft, nontender, no distension. Extremities- no pretibial edema, no erythema seen. Neuro- alert, oriented PERRL, no facial palsy; no dysarthria; moves extremities. Results & Data Results & Data Vital Signs (Past 12 Hours) Vital Signs Temp Pulse Pulse Pulse Resp BP BP 03/08/24 04:13 03/08/24 03:55 84 03/08/24 03:31 91 H 19 150/83 H 03/08/24 02:41 76 18 148/75 H 03/08/24 00:05 76 03/07/24 21:14 80 17 152/98 H 03/07/24 20:09 86 03/07/24 16:32 37.5 C 92 H 19 151/87 H Pulse Ox O2 Del Method 03/08/24 04:13 Room Air 03/08/24 03:55 03/08/24 03:31 93 Room Air 03/08/24 02:41 97 Room Air 03/08/24 00:05 03/07/24 21:14 94 Room Air 03/07/24 20:09 03/07/24 16:32 96 Room Air Diagnostic Findings Laboratory Results WBC 12.75 K/ul (4.8-10.8) H 03/07/24 17:13 RBC 5.00 M/uL (4.70-6.10) 03/07/24 17:13 Hgb 14.9 g/dl (14.0-18.0) 03/07/24 17:13 Hct 43.5 % (42.0-52.0) 03/07/24 17:13 MCV 87.0 fL (80.0-100.0) 03/07/24 17:13 MCH 29.8 pg (25.0-34.0) 03/07/24 17:13 MCHC 34.3 g/dL (32.0-36.0) 03/07/24 17:13 RDW Std Deviation 42.7 fL (36.4-46.3) 03/07/24 17:13 RDW Coeff of Bora 13.4 % (11.5-14.5) 03/07/24 17:13 Plt Count 246 K/uL (130-400) 03/07/24 17:13 MPV 11.3 fL (9.4-12.4) 03/07/24 17:13 Immature Gran % (Auto) 0.3 % 03/07/24 17:13 Neut % (Auto) 84.6 % 03/07/24 17:13 Lymph % (Auto) 7.5 % 03/07/24 17:13 [place] % (Auto) 7.2 % 03/07/24 17:13 Eos % (Auto) 0.2 % 03/07/24 17:13 Baso % (Auto) 0.2 % 03/07/24 17:13 Neut # (Auto) 10.77 K/uL (1.40-6.50) H 03/07/24 17:13 Lymph # (Auto) 0.96 K/uL (1.20-3.40) L 03/07/24 17:13 [place] # (Auto) 0.92 K/uL (0.11-0.59) H 03/07/24 17:13 Eos # (Auto) 0.03 K/uL (0.00-0.50) 03/07/24 17:13 Baso # (Auto) 0.03 K/uL (0.00-0.20) 03/07/24 17:13 Immature Gran # (Auto) 0.04 K/uL (0.01-0.20) 03/07/24 17:13 Sodium 136 mmol/L (136-145) 03/07/24 17:13 Potassium 3.9 mmol/L (3.5-5.1) 03/07/24 17:13 Chloride 103 mmol/L (98-107) 03/07/24 17:13 Carbon Dioxide 28 mmol/L (21-32) 03/07/24 17:13 Anion Gap 5 (3-11) 03/07/24 17:13 BUN 13 mg/dl (6-23) 03/07/24 17:13 Creatinine 1.00 mg/dl (0.6-1.4) 03/07/24 17:13 Est Cr Clr Drug Dosing 88.9 ml/min 03/07/24 17:13 Est GFR ( Amer) 91.8 ml/min 03/07/24 17:13 Est GFR (Non-Af Amer) 79.2 ml/min 03/07/24 17:13 BUN/Creatinine Ratio 13.0 (10-20) 03/07/24 17:13 Glucose 97 mg/dl (70-99(Fasting)) 03/07/24 17:13 Calcium 9.1 mg/dl (8.6-10.3) 03/07/24 17:13 Total Bilirubin 0.9 mg/dl (0.2-1.0) 03/07/24 17:13 AST 13 U/L (13-39) 03/07/24 17:13 ALT 9 U/L (7-52) 03/07/24 17:13 Alkaline Phosphatase 69 U/L (34-104) 03/07/24 17:13 Total Protein 7.0 gm/dl (6.0-8.3) 03/07/24 17:13 Albumin 4.3 gm/dl (3.4-5.0) 03/07/24 17:13 Globulin 2.7 gm/dl (2.5-4.0) 03/07/24 17:13 Albumin/Globulin Ratio 1.6 (0.9-2) 03/07/24 17:[address] 03/07/24 18:32 Exam(s): CT FACIAL With Contrast IV Amt: 93 ml optiray 320 EXAM: CT Maxillofacial With Intravenous Contrast CLINICAL HISTORY: R facial swelling. TECHNIQUE: Axial computed tomography images of the face with intravenous contrast. CTDI is 8.89 mGy and DLP is 191.48 mGy-cm. Automated exposure control was utilized for the study. A dose lowering technique was utilized adhering to the principles of ALARA. CONTRAST: Patient received 93 ml optiray 320 of IV contrast COMPARISON: No relevant prior studies available. FINDINGS: No acute fracture. Diffuse periodontal disease with multiple dental caries. Missing right maxillary central incisor. Prominent right maxillary lateral incisor dental caries with periapical lucency consistent with periapical abscess. Multiple additional periapical lucencies predominately in the maxilla. Right facial subcutaneous soft tissue swelling with focal changes anterior to the maxilla bilaterally. Small 8 x 5.5 mm relatively hypodense focus overlying the right maxilla at the level of the second incisor suspicious for small subperiosteal abscess. No gross bony destruction. No other focal collection. No radiopaque foreign body. No acute fracture. Orbits are unremarkable. Right maxillary sinus mucous retention cyst. No air-fluid level. IMPRESSION: Extensive periodontal disease including multiple dental caries and periapical abscesses including the right lateral maxillary incisor. Right facial subcutaneous soft tissue swelling with a focal suspected small subperiosteal abscess overlying the right maxilla at the level of the lateral incisor. Electronically signed by: Niraj Pineda M.D. 03/07/24 22:46 PM Code Status & VTE Plan VTE Prophylaxis Plan VTE Prophylaxis will be ordered: Yes
[2024-03-08] MEDS ORDERED: POLYETHYLENE (MIRALAX) 17 GM PACK PO PRN (05:21)
[2024-03-08] MEDS ORDERED: AMPICILLIN SOD/SULBACTAM SOD 3 GM VIAL IV SCH (05:21)
[2024-03-08] MEDS: D5W AND 1/2NSS 1,000 ML IV SCH (05:47)
[2024-03-08] MEDS: AMPICILLIN/SULBACTAM SOD 3,000 MG in SODIUM CHLOR 0.9% MINI-B 100 ML IV SCH (06:23)
[2024-03-08] MEDS ORDERED: ALBUTEROL HFA 8 GM INHALER INH PRN (08:14)
[2024-03-08] MEDS: ENOXAPARIN INJ 40 MG/0.4 ML SYR SQ SCH (08:15)
[2024-03-08 08:28] LABS: Hematocrit (blood only) 39.5 % (42.0-52.0); Hemoglobin 13.3 g/dl (14.0-18.0); Mean Corpuscular Hemoglobin 29.5 pg (25.0-34.0); Mean Corpuscular Hgb Conc 33.7 g/dL (32.0-36.0); Mean Corpuscular Volume 87.6 fL (80.0-100.0); Mean Platelet Volume 10.9 fL (9.4-12.4); Platelet Count 185 K/uL (130-400); RDW Coefficient of Variation 13.3 % (11.5-14.5); RDW Standard Deviation 42.5 fL (36.4-46.3); Red Blood Count 4.51 M/uL (4.70-6.10); White Blood Count 7.46 K/ul (4.8-10.8)
[2024-03-08 08:43] LABS: Calcium 8.3 mg/dl (8.6-10.3); Creatinine Clr Calc Pharmacy 88.9 ml/min; Est GFR (African American) 91.8 ml/min; Est GFR (Non-African American) 79.2 ml/min; Magnesium 1.8 mg/dl (1.7-2.4); Phosphorus 2.1 mg/dl (2.5-4.9); Potassium 3.7 mmol/L (3.5-5.1)
--- NOTE | 2024-03-08 10:30 | Oral/Maxillofacial Consult ---
Date of Consultation March 08, 2024 Assessment & Plan (1) Facial cellulitis: (2) Leukocytosis: (3) Abscess, dental: (4) Preseptal cellulitis: (5) Periapical abscess: (6) Dental decay: (7) Acute oral pain: (8) Tobacco abuse: History of Present Illness Attending Physician: Mahendra Santa MD History of Present Illness Oral Maxillofacial Surgery Exam Present Complaint: I have pain/swelling/drainage from my infected upper teeth. Symptoms have been ongoing for a while. Swollen upper right lip and infraorbital area, edema of lower right eyelid Oral Exam: Finding--swelling, drainage and abscess associated with the upper teeth, tender gingival tissue with deep pocket formation.Teeth are in an abnormal position and removal is clinical indicated. Imaging: CT Maxillofacial With Intravenous Contrast CLINICAL HISTORY: R facial swelling. FINDINGS: No acute fracture. Diffuse periodontal disease with multiple dental caries. Missing right maxillary central incisor. Prominent right maxillary lateral incisor dental caries with periapical lucency consistent with periapical abscess. Multiple additional periapical lucencies predominately in the maxilla. Right facial subcutaneous soft tissue swelling with focal changes anterior to the maxilla bilaterally. Small 8 x 5.5 mm relatively hypodense focus overlying the right maxilla at the level of the second incisor suspicious for small subperiosteal abscess. No gross bony destruction. No other focal collection. No radiopaque foreign body. No acute fracture. Orbits are unremarkable. Right maxillary sinus mucous retention cyst. No air-fluid level. IMPRESSION: Extensive periodontal disease including multiple dental caries and periapical abscesses including the right lateral maxillary incisor. Right facial subcutaneous soft tissue swelling with a focal suspected small subperiosteal abscess overlying the right maxilla at the level of the lateral incisor. Soft tissue: gross swelling mucobuccal (right) fold and infraorbital area. floor of the mouth, tongue, hard/soft palate, posterior pharyngeal area all with in normal limits, no pathology or abnormal findings noted. Oral Care: Overall oral care is very poor upper worse them lower Occlusion: Class I TMJ exam: No pop, clicking, pain, good ROM, No history of TMJ injury or dysfunction Periodontal exam: Generalized inflamed gingival tissue with evidence of periodontal pathology. Head/Neck exam: Neck is supple, FROM, Able to extend and flex neck w/o difficulty, no masses, no abnormalities, no airway issues, no evidence of sleep apnea. Treatment Plan: will need I&D of the upper right infraorbital area and removal of the upper teeth is needed to control the infection.of the procedure I reviewed the treatment plan and consent with the patient. Understanding was expressed. Time was given for questions regarding the surgery, risks and post op care. The following teeth are decayed and fractured and removal is indicated all upper teeth and lower right roots Risks discussed: Bleeding,Pain,swelling,infection, dry socket, delayed healing, nerve injury to face,lips,tongue,chin area which could be permanent (rare). TMJ, jaw stiffness, change in bite (rare), ear pain (referred). Sinus problems like fistula or infection. Need to leave a small root fragment in place to avoid injury to nerve or sinus. Relationship of wisdom teeth to nerve/sinus and risk of jaw fracture. Home care reviewed: tooth brushing, rinsing, follow up care with Dr Mckinley. diet=[id number] dental. Discussed activity level, driving/work while on Rx pain Meds. Surgery to be set up for I&D and extractions this afternoon. Allergies Allergy/AdvReac Type Severity Reaction Status Date / Time No Known Allergies Allergy Unknown Verified 03/08/24 01:52 Home Medications Medication Instructions Recorded Confirmed Type amoxicillin 875 mg-potassium 1 tab PO BID 7 days #14 tabs 03/07/24 03/08/24 Rx clavulanate 125 mg tablet acetaminophen 500 mg tablet 1,000 mg PO Q6H PRN Pain 03/08/24 03/08/24 History (Tylenol Extra Strength) Patient History Medical History History of kidney stones Surgical History History of lithotripsy Family History Other Cancer Heart disease Social History Smoking Status: Current every day smoker Tobacco Type: Cigarettes Hx Alcohol Use: No Hx Substance Use: No Preferred Language: Hungarian Communication Ability: Effective Fitter And Turner Required: No marital status: Single Current Living Situation: Family Current Living Situation Comment: Son current occupational status: employed Other Information That Helps Us Care for You: No Feels Safe at Home: Yes Safety Concerns: Feels Safe At This Time Assistive Devices: Glasses Results & Data Vital Signs (Past 12 Hours) Vital Signs Temp Pulse Pulse Pulse Resp BP Pulse Ox 03/08/24 05:22 37.1 C 77 16 150/64 H 93 03/08/24 05:12 03/08/24 05:01 71 90 03/08/24 04:13 03/08/24 03:55 84 03/08/24 03:31 91 H 19 150/83 H 93 03/08/24 02:41 76 18 148/75 H 97 03/08/24 00:05 76 O2 Del Method 03/08/24 05:22 Room Air 03/08/24 05:12 Room Air 03/08/24 05:01 Room Air 03/08/24 04:13 Room Air 03/08/24 03:55 03/08/24 03:31 Room Air 03/08/24 02:41 Room Air 03/08/24 00:05 PG Care Time/CCT Total # of Minutes Spent Total Time Spent with Patient: Total time spent is greater than 50% in coordination of care (as documented) at patient's floor/unit and/or counseling patient: Coding Level of Care Code 87274 IN/OBS CONSULT LVL 2,35M Diagnoses Facial cellulitis L03.211 Leukocytosis D72.829 Leukocytosis type: unspecified Abscess, dental K04.7 Preseptal cellulitis L03.213 Periapical abscess K04.7 Dental decay K02.9 Acute oral pain K13.79 Tobacco abuse Z72.0 (2) Leukocytosis Leukocytosis type: unspecified Qualified Code(s): D72.829 - Elevated white blood cell count, unspecified
[2024-03-08] MEDS: LACTATED RINGER'S 1,000 ML IV SCH (12:57)
--- NOTE | 2024-03-08 13:18 | History & Physical Bridge Note ---
Date of Service March 08, 2024 History & Physical Bridge Note I have examined the patient, reviewed the History & Physical and in the interval since the performance of the History & Physical I have noted the following changes of clinical significance: no changes noted I&D and extraction of all upper teeth and lower posterior roots
[2024-03-08] MEDS ORDERED: fentaNYL citrate PF 100 MCG/2 ML VIAL IV PRN (13:29)
[2024-03-08] MEDS ORDERED: ONDANSETRON INJ 2 MG/ML 2 ML VIAL IV PRN (13:29)
[2024-03-08] MEDS ORDERED: ATROPINE SULFATE 0.1 MG/ML 10ML SYR IV PRN (13:29)
[2024-03-08] MEDS ORDERED: ePHEDrine sulfate 50 MG/ML AMP IV PRN (13:29)
--- NOTE | 2024-03-08 13:31 | Anesthesiology Consultation ---
Date of Service March 08, 2024 Assessment & Plan ASA ASA2 Proposed Anesthesia Anesthesia Type: General Risk / Benefits Reviewed With: PT / POA / Parent / Guardian, Accepts Plan and Informed Consent Obtained History Surgery Operation Date: 03/08/24 08:00 Proposed Procedures p Right Upper Facial Abscess Incision and Drainage - Izaiah Mckinley DMD s Extraction x5, Possible 6 - Izaiah R RANDI Mckinley Height/Weight Height: 5 ft 8 in Weight: 108 kg Allergies Allergy/AdvReac Type Severity Reaction Status Date / Time No Known Allergies Allergy Unknown Verified 03/08/24 12:51 Medications Home Medications Medication Instructions Recorded Confirmed Last Taken amoxicillin 875 mg-potassium 1 tab PO BID 7 days #14 tabs 03/07/24 03/08/24 03/07/24 13:30 clavulanate 125 mg tablet acetaminophen 500 mg tablet 1,000 mg PO Q6H PRN Pain 03/08/24 03/08/24 Unknown (Tylenol Extra Strength) Active Medications Generic Name Dose Route Start Last Admin Trade Name Freq PRN Reason Stop Dose Admin Enoxaparin Sodium 40 mg 03/08/24 09:00 03/08/24 08:15 Enoxaparin Inj 40 Mg/0.4 Ml Syr SQ 04/07/24 08:59 40 mg Q24H TODD Administration Dextrose/Sodium Chloride 1,000 mls @ 125 mls/hr 03/08/24 05:21 03/08/24 12:40 D5w And 1/2nss IV 04/07/24 05:20 0 mls/hr .Q8H TODD Infusion Ampicillin Sodium/Sulbactam 100 mls @ 200 mls/hr 03/08/24 06:00 03/08/24 12:35 Sodium 3,000 mg/ Sodium IV 03/15/24 05:59 Infused Chloride Q6H TODD Infusion Lactated Ringer's 1,000 mls @ 15 mls/hr 03/08/24 13:00 03/08/24 12:57 Lr IV 04/07/24 12:59 15 mls/hr .Q24H TODD Administration NPO Date Last Intake of Fluids: 03/07/24 Time Last Intake of Fluids: 22:00 Date Last Intake of Solids: 03/06/24 Time Last Intake of Solids: 14:00 Past Medical History Medical History History of kidney stones Exercise / Class Metabolic Activity II 4-5 Yardwork/Stairs/Walk up hill Past Family History Family History Other Cancer Heart disease Past Surgical History Surgical History History of lithotripsy Past Anesthesia History No Hx of Anesthesia Complications and No Family Hx of Anesthesia Complications History of PONV No Hx of PONV and No Hx of Motion Sickness Social History Smoking Status: Current every day smoker Hx Alcohol Use: No Hx Substance Use: No Review of Systems denies fever/cough/ colds/ chest pain/ SOB/ NICOLE denies NICOLE Physical Exam Vital Signs Last Vital Signs Temp 36.7 C 03/08/24 12:51 Pulse 79 03/08/24 12:51 Resp 20 03/08/24 12:51 BP 163/97 H 03/08/24 12:51 Pulse Ox 94 03/08/24 12:51 O2 Del Method Room Air 03/08/24 12:51 ENMT Mouth: no TMJ abnormality and no dentition abnormality Thyromental Distance: > or= 3.5 Finger Breadths Mallampati Class: II Neck neck extension not limited Respiratory normal respiratory effort; no respiratory distress Auscultation: lungs clear to auscultation bilaterally Cardiovascular Rate/Rhythm: regular rate and regular rhythm Neurologic moves all extremities Psychiatric Orientation: alert and oriented x 3 Testing Laboratory Results 03/08/24 08:03 03/08/24 08:03
[2024-03-08] MEDS ORDERED: fentaNYL citrate PF 100 MCG/2 ML VIAL ONE ×2 (13:35→14:08)
[2024-03-08] MEDS ORDERED: ROCURONIUM BROMIDE 10 MG/ML 5 ML VIAL IV ONE (13:35)
[2024-03-08] MEDS ORDERED: PROPOFOL IV EMULSION 10 MG/ML 20 ML VIAL IV ONE (13:35)
[2024-03-08] MEDS ORDERED: MIDAZOLAM HCL 1 MG/ML 2ML VIAL ONE (13:35)
[2024-03-08] MEDS: ALBUT/IPRATROP 3MG/0.5MG NEB 3 ML VIAL NEB STA (13:42)
[2024-03-08] MEDS ORDERED: ONDANSETRON INJ 2 MG/ML 2 ML VIAL ONE (14:13)
[2024-03-08] MEDS ORDERED: DEXAMETHASONE SOD INJ 4 MG/ML VIAL ONE (14:13)
[2024-03-08] MEDS ORDERED: PHENYLEPHRINE 100MCG/ML 10ML SYR IV ONE (14:23)
[2024-03-08] MEDS: CHLORHEXIDINE GLUCONATE 0.12% 480 ML MT ONE (14:27)
[2024-03-08] MEDS: BUPIVACAINE/EPINEPHRINE 0.5% 1:200,000 1.8 ML CARP ONE (14:36)
[2024-03-08] MEDS ORDERED: SUGAMMADEX SODIUM 200 MG/2 ML VIAL IV ONE (14:39)
--- NOTE | 2024-03-08 14:49 | Post Operative Brief Note ---
PG Immediate Post Op with CF Date of Surgery March 08, 2024 Pre & Post Diagnosis Operation Date: 03/08/24 08:00 Pre-Op Diagnosis: Facial Cellulitis, Leukocytosis, Dental Abscess, Preseptal Cellulitis, Periapical Abscess, Dental Decay, Acute Oral Pain, Tobacco Abuse Post-Op Diagnosis: Facial Cellulitis, Leukocytosis, Dental Abscess, Preseptal Cellulitis, Periapical Abscess, Dental Decay, Acute Oral Pain, Tobacco Abuse I identified the patient and participated in the time-out.: Yes Procedure Operation Date: 03/08/24 08:00 Actual Procedures p Right Upper Facial Abscess Incision and Drainage(Right) - Izaiah Mckinley DMD s Extraction x10(Bilateral) - Izaiah Mckinley DMD Surgeon Izaiah Mckinley DMD National Sales Representative none Estimated Blood Loss 5 Findings Consistent with Post-Op Diagnosis Right I&D infraorbital abscess carious teeth 5,6,7,8,9,11,12,13,30,31. Specimens Specimen Description: Culture 1: Right Maxillary Abscess Anesthesia Type General Complications none
--- NOTE | 2024-03-08 15:23 | Anesthesiology Progress Note ---
Date of Service March 08, 2024 Anesthesia Post Procedure Vital Signs Vital Signs: Temp Pulse Pulse Pulse Pulse Resp BP 03/08/24 15:15 36.4 C L 84 14 03/08/24 15:05 85 15 03/08/24 14:55 36.0 C L 84 15 03/08/24 13:43 72 16 03/08/24 12:51 36.7 C 79 20 03/08/24 08:25 03/08/24 05:22 37.1 C 77 16 03/08/24 05:12 03/08/24 05:01 71 03/08/24 04:13 03/08/24 03:55 84 03/08/24 03:31 91 H 19 03/08/24 02:41 76 18 03/08/24 00:05 76 03/07/24 21:14 80 17 03/07/24 20:09 86 03/07/24 16:32 37.5 C 92 H 19 151/87 H BP Pulse Ox O2 Del Method O2 Flow Rate 03/08/24 15:15 167/98 H 98 Room Air 03/08/24 15:05 156/95 H 98 Oxymask 6 03/08/24 14:55 143/91 H 98 Oxymask 6 03/08/24 13:43 96 Room Air 03/08/24 12:51 163/97 H 94 Room Air 03/08/24 08:25 CPAP 03/08/24 05:22 150/64 H 93 Room Air 03/08/24 05:12 Room Air 03/08/24 05:01 90 Room Air 03/08/24 04:13 Room Air 03/08/24 03:55 03/08/24 03:31 150/83 H 93 Room Air 03/08/24 02:41 148/75 H 97 Room Air 03/08/24 00:05 03/07/24 21:14 152/98 H 94 Room Air 03/07/24 20:09 03/07/24 16:32 96 Room Air Pain Intensity Right Mouth: Pain Intensity: 7 Transfer of Care Handoff Completed per policy Notes Mental Status: alert / awake / arousable and participated in evaluation Patient Amnestic to Procedure: Yes Nausea / Vomiting: adequately controlled Pain: adequately controlled Airway Patency, RR, SpO2: stable & adequate BP & HR: stable & adequate Hydration State: stable & adequate Anesthetic Complications: no major complications apparent and Pt Satisfied with anesthetic care
[2024-03-08] MEDS: MoRPHine SULFATE 4 MG/ML 1 ML CARP\\VIAL IV PRN (16:26)
[2024-03-08] MEDS: ACETAMINOPHEN 325 MG TAB PO PRN (19:39)
[2024-03-09 06:28] LABS: Basophils # (auto) 0.01 K/uL (0.00-0.20); Basophils % (auto) 0.1 %; Hematocrit (blood only) 38.7 % (42.0-52.0); Immature Granulocytes # (auto) 0.04 K/uL (0.01-0.20); Immature Granulocytes % (auto) 0.6 %; Lymphocytes # (auto) 0.85 K/uL (1.20-3.40); Lymphocytes % (auto) 11.9 %; Mean Corpuscular Hemoglobin 29.3 pg (25.0-34.0); Mean Corpuscular Hgb Conc 33.6 g/dL (32.0-36.0); Mean Corpuscular Volume 87.2 fL (80.0-100.0); Mean Platelet Volume 11.2 fL (9.4-12.4); Monocytes # (auto) 0.48 K/uL (0.11-0.59); Monocytes % (auto) 6.7 %; Neutrophils # (auto) 5.76 K/uL (1.40-6.50); Neutrophils % (auto) 80.7 %; Platelet Count 225 K/uL (130-400); RDW Coefficient of Variation 13.1 % (11.5-14.5); RDW Standard Deviation 41.5 fL (36.4-46.3); Red Blood Count 4.44 M/uL (4.70-6.10); White Blood Count 7.14 K/ul (4.8-10.8)
[2024-03-09 06:29] LABS: Anion Gap 5 (3-11); Blood Urea Nitrogen 9 mg/dl (6-23); Calcium 8.3 mg/dl (8.6-10.3); Carbon Dioxide 26 mmol/L (21-32); Chloride 105 mmol/L (98-107); Creatinine Clr Calc Pharmacy 108.4 ml/min; Est GFR (African American) 108.3 ml/min; Est GFR (Non-African American) 93.5 ml/min; Glucose 148 mg/dl (70-99(Fasting)); Magnesium 1.9 mg/dl (1.7-2.4); Phosphorus 2.3 mg/dl (2.5-4.9); Sodium 136 mmol/L (136-145)
--- NOTE | 2024-03-09 13:32 | Procedure Note ---
Procedure Note Date of Service March 09, 2024 Note POST OP NOTE at at 24 hours S/P I&D and dental extractions The patient did very well post operatively. Oral care is good, minimal swelling as expected. Tissue tone =healthy normal tissue No sinus or nerve complications noted Excellent ROM Sutures in place Reviewed oral care=irrigation and instructed on use. Reviewed diet, massage, exercise and continued home/oral care RTC--I suggested he call to set up a follow with me so I can him in 10-14 days Overall: Excellent healing from recent oral surgery Coding
--- NOTE | 2024-03-09 13:35 | Oral/Maxillofacial Progress Nt ---
Date of Service March 09, 2024 Assessment & Plan Admission and Anticipated Discharge Date Admission Date: March 08, 2024 Subjective POST OP NOTE at 24 hours s/p I&D with dental extractions The patient did very well post operatively. Oral care is good, minimal swelling as expected. Tissue tone =healthy normal tissue No sinus or nerve complications noted Excellent ROM Sutures in place Reviewed oral care=irrigation and instructed on use. Reviewed diet, massage, exercise and continued home/oral care RTC I asked Juan to call to set up a follow up so I can evaluate him in 10-14 days Overall: Excellent healing from recent oral surgery OK for D/C as per medical Results & Data Vital Signs (Past 12 Hours) Vital Signs Temp Pulse Resp BP Pulse Ox O2 Del Method 03/09/24 07:25 36.4 C L 73 18 121/67 96 Room Air 03/09/24 03:42 36.8 C 67 16 149/84 H 94 Room Air PG Care Time/CCT Total # of Minutes Spent Total Time Spent with Patient: Total time spent is greater than 50% in coordination of care (as documented) at patient's floor/unit and/or counseling patient: Coding Level of Care Code None
--- NOTE | 2024-03-09 13:51 | Discharge Summary ---
Date of Service March 09, 2024 Admission HPI Per Admitting Provider 63-year-old male with past med history significant for asthma, ongoing tobacco use presents with right facial cellulitis and dental infection. Patient came to ER yesterday morning with worsening dental pain. Was discharged on Augmentin and [facility] to have his [facility]. He took the antibiotic but start developing swelling of the face and also swelling below his right eye which prompted him to come to the ER. Denies any fevers. Was feeling nauseous. Has headache 6/10 severity. No blurred vision. Currently has some runny nose. No sore throat. No cough. No difficulty swallowing. He was only eating soft and liquid food today. Denies chest pain or shortness of breath. No abdominal pain. Normal bowel and bladder movements. Resting comfortably and hemodynamically stable. Past medical's. As mentioned above past surgical history. Colonoscopy. Social history. Smokes half pack a day for last about 46 years. Denies alcohol use. No drug use. Family history. Father had heart disease. Mother had pancreatic cancer. 1 brother had pancreatic cancer. Another brother had colon cancer. Two sisters had breast cancer. Admission Exam Per Admitting Provider General- Not in distress Head- right sided face swollen and swollen sack seen below right eye Eyes- PERRL. ENT- oropharynx clear Neck- supple, no JVD. Lungs- clear to auscultation no wheezing or crackles. Heart- regular rate and rhythm; no murmur, no gallop. Abdomen- normal bowel sounds, soft, nontender, no distension. Extremities- no pretibial edema, no erythema seen. Neuro- alert, oriented PERRL, no facial palsy; no dysarthria; moves extremities. Principal Diagnosis facial/ dental infection s/p I&D , s/p dental extraction Discharge Exam General- WD/WN M in NAD Head- right sided face swollen below right eye (much improved) Eyes- PERRL. Neck- supple, no JVD. Lungs- clear to auscultation no wheezing or crackles. Heart- regular rate and rhythm; no murmur Abdomen- normal bowel sounds, soft, nontender, no distension. Extremities- no pretibial edema, no erythema seen. Neuro- alert, oriented PERRL, no facial palsy; no dysarthria; moves extremities. Discharge Data Allergies Allergy/AdvReac Type Severity Reaction Status Date / Time No Known Allergies Allergy Unknown Verified 03/08/24 12:51 Consultations 03/08/24 00:03 ED Decision to Admit Stat 03/08/24 08:00 Consult Oromaxillofacial Surgery Routine Procedures Performed Operation Date: 03/08/24 08:00 Actual Procedures p Right Upper Facial Abscess Incision and Drainage(Right) - Izaiah Mckinley DMD s Extraction x10(Bilateral) - Izaiah Mckinley DMD Ordered Studies 03/07/24 18:32 CT face [CT facial bones w con] Stat FINDINGS: No acute fracture. Diffuse periodontal disease with multiple dental caries. Missing right maxillary central incisor. Prominent right maxillary lateral incisor dental caries with periapical lucency consistent with periapical abscess. Multiple additional periapical lucencies predominately in the maxilla. Right facial subcutaneous soft tissue swelling with focal changes anterior to the maxilla bilaterally. Small 8 x 5.5 mm relatively hypodense focus overlying the right maxilla at the level of the second incisor suspicious for small subperiosteal abscess. No gross bony destruction. No other focal collection. No radiopaque foreign body. No acute fracture. Orbits are unremarkable. Right maxillary sinus mucous retention cyst. No air-fluid level. IMPRESSION: Extensive periodontal disease including multiple dental caries and periapical abscesses including the right lateral maxillary incisor. Right facial subcutaneous soft tissue swelling with a focal suspected small subperiosteal abscess overlying the right maxilla at the level of the lateral incisor. Hospital Course (1) Facial cellulitis: 63-year-old male with past med history significant for asthma, ongoing tobacco use presents with right facial cellulitis and dental infection. Patient came to ER yesterday morning with worsening dental pain. Was discharged on Augmentin and [facility] to have his teeth pulled. He took the antibiotic but start developing swelling of the face and also swelling below his right eye which prompted him to come to the ER. Denies any fevers. Was feeling nauseous. Has headache 6/10 severity. No blurred vision. Currently has some runny nose. No sore throat. No cough. No difficulty swallowing. He was only eating soft and liquid food today. Denies chest pain or shortness of breath. No abdominal pain. Normal bowel and bladder movements. Resting comfortably and hemodynamically stable. right facial cellulitis preseptal cellulitis dental infection IV Unasyn , IV fluids pain control Oral surgery consulted - pt s/p p Right Upper Facial Abscess Incision and Drainage(Right) - Izaiah Mckinley DMD, lulu Extraction x10(Bilateral) - Izaiah Mckinley DMD Follow up w/ Dr. Mckinley RTC in 10-14 days Pt discharged on augmentin asthma tobacco use albuterol as needed needs counseling Total Time Total Time Spent Total Time Spent (In Minutes): 40 Discharge Plan Discharge Items Patient Disposition: Home - Self-Care Reason For Visit: FACIAL CELLULITIS, DENTAL INFECTION Discharge Diagnosis: s/p I&D facial infection , s/p dental extraction Activity: Resume your previous activity Lifting: Gradually increase as tolerated Bathing: No limitations Exercise/Sports: Gradually increase as tolerated Driving/Machine Use: Resume 1 day after discharge Weightbearing: Full weightbearing Non-emergency contact: Surgeon Call non-emergency contact if: you have any medication questions, your temperature is above 101.5, your wound has increased redness, your wound has increased drainage and your wound pain has increased Follow-up/Referrals: Izaiah Mckinley DMD [Physician] - Paul Clay, SOCIAL MEDIA CAMPAIGN MANAGER-C [Primary Care Provider] - Diet: Full liquid and Clear liquid Diet Texture: Pureed (blended smooth) Liquid Consistency: Pudding thick Diet Comment: clear--full--dental soft as tolerated Addtl Attending Provider Instructions: Follow up with your primary care physician and your dental surgeon - Dr. Mckinley. Instruction - per Dr. Mckinley, below. Finish antibiotic course with augmentin as prescribed. ADDITIONAL ACTIVITY RECOMMENDATIONS: * [place] teeth after every meal. It is very important to keep your mouth clean to prevent infection. * Starting tonight rinse with the Peridex as directed then 2 x a day * it is very important to keep well hydrated, this prevents fever and possible dry socket pain SPECIAL CARE INSTRUCTIONS: *It is not uncommon that between day 2-4 that your swelling will be at its worst this is very normal, do not be alarmed. * Keep ice on the side of your face for the next 24 to 36 hours. This will help keep the swelling down. * After 36 hours, apply heat (hot water bottle or heating pad) for the next two days, as often as possible. * Tomorrow start rinsing your mouth with 1/2 teaspoon salt in 8 ounces warm water. This rinse should be used every 4-6 hours. * You may experience slight nausea. To prevent this, never take your medication on an empty stomach. If nauseated, take small sips of becca yojana until you feel better; then you may start on applesauce and toast. * Some swelling is common. It should gradually decrease within 4-5 days. * A certain amount of bleeding is to be expected. It is often possible to control mild oozing by placing folded gauze over the area and biting down for 30 minutes. If you are unable to control excessive bleeding, call Dr Mckinley at [phone] * You may experience some discomfort for a few days. If pain or swelling increases, Call Dr Mckinley * Return to the office for a follow up check up on: I need to see Juan in 10-14 days, He will call to arrange * office address--[address] phone # [phone] Pending Studies at Discharge: Yes Studies:: C&S results Stand-Alone Forms: My [facility], Smoking Cessation Medications and DC Order Prescriptions: Continued amoxicillin-pot clavulanate 875-125 mg tablet 1 tab PO BID 7 Days Qty: 14 0RF acetaminophen [Tylenol Extra Strength] 500 mg Tablet 1,000 mg PO Q6H PRN (Reason: Pain) Discharge Orders: Discharge Order (Routine); Ordered 03/09/24 Ordered By: Izaiah Mckinley Admission Data Admit Date/Time: 03/08/24 04:18 Attending Provider: Mahendra Santa Admit Provider: Quentin Garcia Primary Care Provider: Paul Clay Other Providers: Quentin Garcia; Izaiah Mckinlye; [facility]
== END 2024-03-09 14:46 | disposition home or self-care (01) | DRG 158 ==
LOC: ED 16:29 → 3W 03-08 04:18

== ENCOUNTER 2024-07-29 00:59 | Inpatient (IN) ==
[2024-07-29] MEDS: methylPREDNISolone 125 MG/2 ML VIAL IV STA (01:26)
[2024-07-29] MEDS: ALBUT/IPRATROP 3MG/0.5MG NEB 3 ML VIAL NEB STA ×3 (01:26→03:27)
--- NOTE | 2024-07-29 01:27 | Emergency Department Note ---
Impression & Plan Hypoxia, URI (upper respiratory infection), Tobacco abuse, Acute exacerbation of chronic obstructive pulmonary disease (COPD) ED Provider Note ED Provider Note NAME: DENICE ECHEVARRIA AGE:64 SEX: Male : 1960 ARRIVES VIA: Private vehicle INFORMANT: Patient ED PROVIDER(s): Roxana Davidson DO CHIEF COMPLAINT: Cough, chest tightness HPI: This is a 64-year-old male presents emergency department due to concern for 2 to 3 days of cough, chest tightness, and URI symptoms. Patient is a smoker.. He denies fevers or chills. He states the cough is intermittently productive of green and clear sputum. No hemoptysis noted. Patient states symptoms are similar to prior episodes of bronchitis. He denies any prior episode of pneumonia. Patient does have an albuterol nebulizer at home and did try using it although did not feel it helped. He states he does have chest tightness and feels although he is wheezing and having a difficult time taking a full breath. He denies fevers or chills, nausea or vomiting, abdominal pain, diarrhea, or leg swelling. No known sick contacts. No recent travel. PAST MEDICAL HISTORY:See Below PAST SURGICAL HISTORY:See Below FAMILY HISTORY:See Below SOCIAL HISTORY:See Below HOME MEDICATIONS:See Below ALLERGIES:See Below VITALS:See Below PHYSICAL EXAMINATION: GENERAL: alert, well appearing, well nourished, no distress, non-toxic EYE EXAM: normal conjunctiva, PERRL and EOM's grossly intact OROPHARYNX: no exudate, no erythema, lips, buccal mucosa, and tongue normal and mucous membranes are moist NECK: supple, no nuchal rigidity, no adenopathy, non-tender LUNGS: Decreased breath to auscultation. Normal chest wall mechanics, no r/r,. Scattered expiratory wheezes noted bilaterally, coarse cough additionally noted, no increased work of breathing, no hypoxia HEART: no murmurs, S1 normal and S2 normal ABDOMEN: abdomen soft, non-tender, normo-active bowel sounds, no masses, no rebound or guarding. BACK: Back is symmetrical on inspection and there is no deformity, no midline tenderness, no CVA tenderness. SKIN: no rashes, petechiae, orbruising UPPER EXTREMITIES: upper extremities are grossly normal. FROM, nml pulses b/l. LOWER EXTREMITIES: No pitting edema. FROM, nml pulses b/l. NEURO EXAM: Normal sensorium, cranial nerves II-XII grossly intact, normal speech, no facial droop,nogross weakness of arms, no gross weakness of legs. Gross sensation intact. No ataxia. Vital Signs: reviewed and remarkable Differential Diagnosis: uri, bronchitis, pna, pleural effusion, chf, pericardial effusion, pericarditis, myocarditis, copd exacerbation, as well as others were considered MEDICAL DECISION MAKING: This is a 64-year-old male presents emergency department due to persistent cough, wheezing, and chest tightness that he feels is similar to prior episodes of bronchitis. Patient does have a history of tobacco abuse. He was afebrile and vital signs stable on arrival. No significant increased work of breathing or overt hypoxia initially noted. Labs drawn and sent, IV established, EKG and chest x-ray performed at bedside and interpreted me and patient monitored on telemetry. He was initially given a DuoNeb with improved air movement on auscultation however now more wheezing was heard bilaterally. Patient given 60 mg of IV Solu-Medrol as well as a dose of oral doxycycline. Chest x-ray was negative for obvious pneumonia based on my interpretation as well as the over read of radiology. Nasal swab obtained and sent for [employer] respiratory panel which was negative additionally. Patient received 2 additional DuoNebs while down here and while did have increased air movement and reported feeling improved he had persistent bilateral expiratory wheeze and was noted by nursing staff to have an episode of hypoxia down to 85%. He was placed on oxygen at 2 L via nasal cannula with improvement. We discussed all results at bedside. I below suspicion for occult cardiac etiology. No other risk factors for PE at this time. Patient symptoms more consistent with bronchitis or COPD exacerbation based on history and exam. Due to concern for persistent symptoms despite treatment in the emergency department as well as hypoxia, case discussed with the hospitalist team for additional evaluation and management. Consultation(s): 0437: Discussed with Dr. Traylor, [facility] hospitalist team, for additional evaluation and management. ER Treatment Provided: See below Diagnostics Interpreted By Me: -ECG:. Normal sinus at 71, normal axis, normal intervals, no acute ST/T wave -Cardiac Monitoring: An order was placed for continuous cardiac monitoring. The monitor shows a rate of 72 with normal sinus rhythm. -Laboratory studies: As stated above and show below. -Imaging studies: X-ray Chest: A single view study of the chest was reviewed and was negative for cardiomegaly, focal infiltrate, effusion, pulmonary edema, or wide mediastinum. Triage Nursing Note Reviewed Prior/Outside Records Reviewed Past Med/Surg History Problem List (Updated 07/29/24 @ 05:56 by Roxana Davidson DO) Acute exacerbation of chronic obstructive pulmonary disease (COPD) (Acute) Hypoxia (Acute) Acute hypoxemic respiratory failure Tobacco abuse (Acute) URI (upper respiratory infection) (Acute) Leukocytosis (Acute) Tobacco abuse (Chronic) Lung nodule (Chronic) Medical History (Updated 07/29/24 @ 05:56 by Roxana Davidson DO) Facial cellulitis Abscess, dental Preseptal cellulitis History of kidney stones Surgical History (Updated 03/09/24 @ 10:28 by Lyubov Champagne RN) Hx of oral surgery (03/08/24) p Right Upper Facial Abscess Incision and Drainage(Right) - Izaiah Mckinley DMD s Extraction x10(Bilateral) - Izaiah Mckinley DMD History of lithotripsy Family History Other Cancer Heart disease Social History Smoking Status: Current every day smoker Tobacco Type: Cigarettes Hx Alcohol Use: No Hx Substance Use: No Preferred Language: Chadian Communication Ability: Effective Visual Impairment: No Limitations [employer] 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 marital status: Single Current Living Situation: Family Current Living Situation Comment: Son current occupational status: employed Feels Safe at Home: Yes Assistive Devices: None Allergies Allergies Allergy/AdvReac Type Severity Reaction Status Date / Time No Known Allergies Allergy Unknown Verified 03/25/24 15:15 Home Meds Home Medications Medication Instructions Recorded Confirmed acetaminophen 500 mg tablet 1,000 mg PO Q6H PRN Pain 03/08/24 07/29/24 (Tylenol Extra Strength) Results & Data (ED) Vital Signs Vital Signs - 24 hr 07/29/24 01:02 07/29/24 01:19 07/29/24 01:22 Temperature 36.7 C Temperature Source Temporal Artery Scan Pulse Rate 76 77 Pulse Rate [Apical] Pulse Rate from SpO2 Sensor Pulse Rhythm [Apical] Pulse Strength [Apical] Respiratory Rate 18 Respiratory Effort / Characteristics Non-Labored Spontaneous Respiratory Depth Normal Respiratory Pattern Regular Blood Pressure 145/74 H Blood Pressure [Right Arm] Blood Pressure Mean 97 Blood Pressure Mean [Right Arm] Blood Pressure Position Sitting Pulse Oximetry 92 100 Oxygen Delivery Method Room Air Room Air Oxygen Flow Rate Sepsis Recent Fever Within 48 Hours No Sepsis New/Unexplained Change in Mental Status N/A Sepsis Action Taken by Nursing No Action Required Oxygen Flow Rate - Titration Pulse Oximetry Post Tiitration 07/29/24 01:22 07/29/24 03:00 07/29/24 03:00 Temperature Temperature Source Pulse Rate 68 Pulse Rate [Apical] 74 Pulse Rate from SpO2 Sensor 68 Pulse Rhythm [Apical] Regular Pulse Strength [Apical] Normal Respiratory Rate 18 16 Respiratory Effort / Characteristics Short of Breath SOB on Exertion Non-Labored Spontaneous Respiratory Depth Normal Respiratory Pattern Regular Blood Pressure 125/72 Blood Pressure [Right Arm] 125/72 Blood Pressure Mean 89 Blood Pressure Mean [Right Arm] 89 Blood Pressure Position Pulse Oximetry 94 93 Oxygen Delivery Method Room Air Room Air Oxygen Flow Rate Sepsis Recent Fever Within 48 Hours Sepsis New/Unexplained Change in Mental Status Sepsis Action Taken by Nursing Oxygen Flow Rate - Titration Pulse Oximetry Post Tiitration 07/29/24 04:17 07/29/24 04:39 07/29/24 05:03 Temperature Temperature Source Pulse Rate 78 83 Pulse Rate [Apical] Pulse Rate from SpO2 Sensor 78 82 Pulse Rhythm [Apical] Pulse Strength [Apical] Respiratory Rate 15 18 Respiratory Effort / Characteristics Respiratory Depth Respiratory Pattern Blood Pressure 107/65 134/73 Blood Pressure [Right Arm] Blood Pressure Mean 79 93 Blood Pressure Mean [Right Arm] Blood Pressure Position Pulse Oximetry 85 L 96 96 Oxygen Delivery Method Room Air Nasal Cannula Nasal Cannula Oxygen Flow Rate 2 2 Sepsis Recent Fever Within 48 Hours Sepsis New/Unexplained Change in Mental Status Sepsis Action Taken by Nursing Oxygen Flow Rate - Titration 2 Pulse Oximetry Post Tiitration 95 07/29/24 05:06 Temperature Temperature Source Pulse Rate 78 Pulse Rate [Apical] Pulse Rate from SpO2 Sensor Pulse Rhythm [Apical] Pulse Strength [Apical] Respiratory Rate Respiratory Effort / Characteristics Respiratory Depth Respiratory Pattern Blood Pressure Blood Pressure [Right Arm] Blood Pressure Mean Blood Pressure Mean [Right Arm] Blood Pressure Position Pulse Oximetry Oxygen Delivery Method Oxygen Flow Rate Sepsis Recent Fever Within 48 Hours Sepsis New/Unexplained Change in Mental Status Sepsis Action Taken by Nursing Oxygen Flow Rate - Titration Pulse Oximetry Post Tiitration Laboratory Data 07/29/24 01:18 07/29/24 01:18 Lab Results 07/29/24 07/29/24 Range/Units 01:10 01:18 WBC 7.16 (4.8-10.8) K/ul RBC 4.67 L (4.70-6.10) M/uL Hgb 14.0 (14.0-18.0) g/dl Hct 41.5 L (42.0-52.0) % MCV 88.9 (80.0-100.0) fL MCH 30.0 (25.0-34.0) pg MCHC 33.7 (32.0-36.0) g/dL RDW Std Deviation 43.9 (36.4-46.3) fL RDW Coeff of Bora 13.5 (11.5-14.5) % Plt Count 269 (130-400) K/uL MPV 10.5 (9.4-12.4) fL Immature Gran % (Auto) 0.3 % Neut % (Auto) 54.5 % Lymph % (Auto) 27.9 % Lynn % (Auto) 9.5 % Eos % (Auto) 7.1 % Baso % (Auto) 0.7 % Neut # (Auto) 3.90 (1.40-6.50) K/uL Lymph # (Auto) 2.00 (1.20-3.40) K/uL Lynn # (Auto) 0.68 H (0.11-0.59) K/uL Eos # (Auto) 0.51 H (0.00-0.50) K/uL Baso # (Auto) 0.05 (0.00-0.20) K/uL Immature Gran # (Auto) 0.02 (0.01-0.20) K/uL Sodium 140 (136-145) mmol/L Potassium 3.6 (3.5-5.1) mmol/L Chloride 107 (98-107) mmol/L Carbon Dioxide 27 (21-32) mmol/L Anion Gap 6 (3-11) BUN 11 (6-23) mg/dl Creatinine 1.00 (0.6-1.4) mg/dl Est Cr Clr Drug Dosing 86.1 ml/min eGFR 83.52 BUN/Creatinine Ratio 11.0 (10-20) Glucose 102 H (70-99(Fasting)) mg/dl Calcium 8.7 (8.6-10.3) mg/dl Magnesium 1.8 (1.7-2.4) mg/dl Total Bilirubin 0.4 (0.2-1.0) mg/dl AST 15 (13-39) U/L ALT 13 (7-52) U/L Alkaline Phosphatase 72 (34-104) U/L Troponin I High Sens 7.0 (0-20) pg/ml Total Protein 6.2 (6.0-8.3) gm/dl Albumin 4.1 (3.4-5.0) gm/dl Globulin 2.1 L (2.5-4.0) gm/dl Albumin/Globulin Ratio 2.0 (0.9-2) Lipase 29 (11-82) U/L Adenovirus (PCR) Not Detected (NotDetected) B. pertussis DNA (PCR) Not Detected (NotDetected) B.parapertussis DNA PCR Not Detected (NotDetected) C. pneumoniae DNA (PCR) Not Detected (NotDetected) Coronavirus OC43 (PCR) Not Detected (NotDetected) Coronavirus HKU1 (PCR) Not Detected (NotDetected) Coronavirus 229E (PCR) Not Detected (NotDetected) SARS-CoV-2 (PCR) Not Detected (NotDetected) Coronavirus NL63 (PCR) Not Detected (NotDetected) Human Metapneumovir PCR Not Detected (NotDetected) Influenza Type A (PCR) Not Detected (NotDetected) Influenza Type B (PCR) Not Detected (NotDetected) M. pneumoniae (PCR) Not Detected (NotDetected) Parainfluenza 1 (PCR) Not Detected (NotDetected) Parainfluenza 2 (PCR) Not Detected (NotDetected) Parainfluenza 3 (PCR) Not Detected (NotDetected) Parainfluenza 4 (PCR) Not Detected (NotDetected) RSV (PCR) Not Detected (NotDetected) Entero/Rhino (PCR) Not Detected (NotDetected) Administered Medications Discontinued Medications Albuterol (Albut/Ipratrop 3mg/0.5mg Neb 3 Ml Vial) 3 ml NEB NOW STA; Protocol Stop: 07/29/24 01:19 Last Admin: 07/29/24 01:26 Dose: 3 ml Documented By: BRENAA Albuterol (Albut/Ipratrop 3mg/0.5mg Neb 3 Ml Vial) 3 ml NEB NOW STA; Protocol Stop: 07/29/24 02:17 Last Admin: 07/29/24 02:24 Dose: 3 ml Documented By: BREANA Albuterol (Albut/Ipratrop 3mg/0.5mg Neb 3 Ml Vial) 3 ml NEB NOW STA; Protocol Stop: 07/29/24 03:17 Last Admin: 07/29/24 03:27 Dose: 3 ml Documented By: JULIAN Benzonatate (Benzonatate 100 Mg Capsule) 100 mg PO NOW ONE Stop: 07/29/24 02:17 Last Admin: 07/29/24 02:24 Dose: 100 mg Documented By: BREANA Doxycycline Hyclate (Doxycycline Hyclate 100 Mg Cap) 100 mg PO NOW STA Stop: 07/29/24 03:16 Last Admin: 07/29/24 03:26 Dose: 100 mg Documented By: JULIAN Magnesium Sulfate/Dextrose (Magnesium Sulfate / D5w) 1 gm in 100 mls @ 100 mls/hr IV NOW STA Stop: 07/29/24 05:22 Last Admin: 07/29/24 04:44 Dose: 100 mls/hr Documented By: BREANA Methylprednisolone (Methylprednisolone 125 Mg/2 Ml Vial) 60 mg IV NOW STA Stop: 07/29/24 01:19 Last Admin: 07/29/24 01:26 Dose: 60 mg Documented By: BREANA Imaging Data Radiologist's Impression: Chest X-Ray 07/29/24 01:18 EXAM: XR chest 1V portable CLINICAL HISTORY: SOB JMF TECHNIQUE: X-ray image of the chest is obtained in AP portable projection. COMPARISON: 12/16/2023 FINDINGS: Pulmonary Parenchyma: Prominent central bronchovascular markings. 1.2 cm nodular opacity in the right mid zone. No evidence of consolidation, collapse, or other focal opacities. No evidence of pleural effusion or pleural thickening. Heart and Mediastinum: Heart size and shape are normal. No mediastinal widening or masses. Prominent hilar shadows. Bony Thorax: Mild degenerative changes of the visualized skeleton. Soft Tissues: Soft tissues overlying the chest wall are unremarkable. IMPRESSION: 1. Prominent bronchovascular markings, clinical correlation is advised to assess for lung congestion/bronchitis.(More conspicuous on the present study, mostly on the left perihilar region). 2. Prominent hilar shadows could represent congested pulmonary arteries, which appear nearly stable since the previous study. 3. 1.2 cm nodular opacity in the right mid zone, which appears nearly stable since the previous study. Electronically signed by Fadi Trujillo 07-29-2024 02:59 AM Discharge Plan Visit Data Chief Complaint: Shortness of Breath/Dyspnea Stated Complaint: CHEST TIGHTNESS, SOB ED Provider: Roxana Davidson Discharge Problem: Hypoxia, URI (upper respiratory infection), Tobacco abuse, Acute exacerbation of chronic obstructive pulmonary disease (COPD) Forms Stand Alone Forms: [facility] [employer] Prescriptions Prescriptions: No Action acetaminophen [Tylenol Extra Strength] 500 mg Tablet 1,000 mg PO Q6H PRN (Reason: Pain) Referrals Referrals: Paul Clay, DIRECTOR DATA-C [Primary Care Provider] -
[2024-07-29 01:31] LABS: Basophils # (auto) 0.05 K/uL (0.00-0.20); Basophils % (auto) 0.7 %; Eosinophils # (auto) 0.51 K/uL (0.00-0.50); Eosinophils % (auto) 7.1 %; Hematocrit (blood only) 41.5 % (42.0-52.0); Immature Granulocytes # (auto) 0.02 K/uL (0.01-0.20); Immature Granulocytes % (auto) 0.3 %; Lymphocytes % (auto) 27.9 %; Mean Corpuscular Hgb Conc 33.7 g/dL (32.0-36.0); Mean Corpuscular Volume 88.9 fL (80.0-100.0); Mean Platelet Volume 10.5 fL (9.4-12.4); Monocytes # (auto) 0.68 K/uL (0.11-0.59); Monocytes % (auto) 9.5 %; Neutrophils % (auto) 54.5 %; Platelet Count 269 K/uL (130-400); RDW Coefficient of Variation 13.5 % (11.5-14.5); RDW Standard Deviation 43.9 fL (36.4-46.3); Red Blood Count 4.67 M/uL (4.70-6.10); White Blood Count 7.16 K/ul (4.8-10.8)
[2024-07-29 01:50] LABS: Albumin Level 4.1 gm/dl (3.4-5.0); Bilirubin,Total 0.4 mg/dl (0.2-1.0); Calcium 8.7 mg/dl (8.6-10.3); Creatinine Clr Calc Pharmacy 86.1 ml/min; Globulin 2.1 gm/dl (2.5-4.0); Magnesium 1.8 mg/dl (1.7-2.4); Potassium 3.6 mmol/L (3.5-5.1); Total Protein 6.2 gm/dl (6.0-8.3)
[2024-07-29 02:15] LABS: Adenovirus PCR Not Detected (NotDetected); Bordetella parapertussis PCR Not Detected (NotDetected); Bordetella pertussis PCR Not Detected (NotDetected); Chlamydia pneumoniae PCR Not Detected (NotDetected); Coronavirus 229E PCR Not Detected (NotDetected); Coronavirus CoV-2 (COVID19)PCR Not Detected (NotDetected); Coronavirus HKU1 PCR Not Detected (NotDetected); Coronavirus NL63 PCR Not Detected (NotDetected); Coronavirus OC43PCR Not Detected (NotDetected); Human Metapneumovirus PCR Not Detected (NotDetected); Influenza A PCR Not Detected (NotDetected); Influenza B PCR Not Detected (NotDetected); Mycoplasma pneumoniae PCR Not Detected (NotDetected); Parainfluenza Virus 1 PCR Not Detected (NotDetected); Parainfluenza Virus 2 PCR Not Detected (NotDetected); Parainfluenza Virus 3 PCR Not Detected (NotDetected); Parainfluenza Virus 4 PCR Not Detected (NotDetected); Respiratory Syncytial VirusPCR Not Detected (NotDetected); Rhinovirus/Enterovirus PCR Not Detected (NotDetected)
[2024-07-29] MEDS: BENZONATATE 100 MG CAPSULE PO ONE (02:24)
--- NOTE | 2024-07-29 03:00 | XRay Report ---
EXAM: XR chest 1V portable CLINICAL HISTORY: SOB JMF TECHNIQUE: X-ray image of the chest is obtained in AP portable projection. COMPARISON: 12/16/2023 FINDINGS: Pulmonary Parenchyma: Prominent central bronchovascular markings. 1.2 cm nodular opacity in the right mid zone. No evidence of consolidation, collapse, or other focal opacities. No evidence of pleural effusion or pleural thickening. Heart and Mediastinum: Heart size and shape are normal. No mediastinal widening or masses. Prominent hilar shadows. Bony Thorax: Mild degenerative changes of the visualized skeleton. Soft Tissues: Soft tissues overlying the chest wall are unremarkable. IMPRESSION: 1. Prominent bronchovascular markings, clinical correlation is advised to assess for lung congestion/bronchitis.(More conspicuous on the present study, mostly on the left perihilar region). 2. Prominent hilar shadows could represent congested pulmonary arteries, which appear nearly stable since the previous study. 3. 1.2 cm nodular opacity in the right mid zone, which appears nearly stable since the previous study. Electronically signed by Fadi Trujillo 07-29-2024 02:59 AM
[2024-07-29] MEDS: DOXYCYCLINE HYCLATE 100 MG CAP PO STA (03:26)
[2024-07-29] MEDS: MAGNESIUM SULFATE / D5W 1 GM/100 ML BAG IV STA (04:44)
--- NOTE | 2024-07-29 04:48 | History & Physical Report ---
Date of Service July 29, 2024 Assessment & Plan (1) Acute hypoxemic respiratory failure: Plan: Secondary to complicated bronchitis Rule out lobar pneumonia and PE given hypoxemia following interventions at the ER Solid pulmonary nodule, right, stable size as per today's imaging ongoing tobacco abuse Admit to medical telemetry Supplemental O2 Baseline VBG CT chest PE study Doxycycline, nebs RTC, prednisone course Pulmonary consulted without improvement Nicotine patch as needed DVT prophylaxis. Lovenox subcu Full code Text document was generated using [employer] voice recognition software. It may contain grammatical or spelling errors. Kindly contact undersigned for clarification of any documentation item in question. History of Present Illness Chief Complaint: Cough, SOB Primary Care Provider: JOSEFA Peter History obtained from patient, family, and records. Medical history significant for pulmonary nodules, ongoing tobacco abuse, urolithiasis. Last confinement February 2024 for facial/odontogenic infection status post drainage/tooth extraction. Few days history of junky cough symptoms productive of green sputum with chest pain and worsening SOB. Not sure about sick contacts. Denies fluid retention. Denies aspiration. Doxycycline, neb treatment, Solu-Medrol administered at the ER. O2 sats 80s after interventions. 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 Allergies Allergy/AdvReac Type Severity Reaction Status Date / Time No Known Allergies Allergy Unknown Verified 03/25/24 15:15 Home Medications Medication Instructions Recorded Confirmed Type acetaminophen 500 mg tablet 1,000 mg PO Q6H PRN Pain 03/08/24 07/29/24 History (Tylenol Extra Strength) Past Med/Surg History Problem List (Updated 07/29/24 @ 05:34 by Arthur Dominique MD) Acute hypoxemic respiratory failure Tobacco abuse (Acute) URI (upper respiratory infection) (Acute) Leukocytosis (Acute) Tobacco abuse (Chronic) Lung nodule (Chronic) Medical History (Updated 07/29/24 @ 05:34 by Arthur Dominique MD) Facial cellulitis Abscess, dental Preseptal cellulitis History of kidney stones Surgical History (Updated 03/09/24 @ 10:28 by Lyubov Champagne RN) Hx of oral surgery (03/08/24) p Right Upper Facial Abscess Incision and Drainage(Right) - Izaiah Mckinley DMD s Extraction x10(Bilateral) - Izaiah Mckinley DMD History of lithotripsy Family History Other Cancer Heart disease Social History Smoking Status: Current every day smoker Tobacco Type: Cigarettes Hx Alcohol Use: No Hx Substance Use: No Preferred Language: [place] Island[place] Communication Ability: Effective Visual Impairment: No Limitations Hospitalist Nocturnist Physician Required: No marital status: Single Current Living Situation: Family Current Living Situation Comment: Son current occupational status: employed Feels Safe at Home: Yes Assistive Devices: None Review of Systems Review of Systems: As per HPI, all other systems reviewed and negative Physical Exam 2 Physical Exam: GENERAL: Comfortable, obese, pleasant, no respiratory distress SKIN: Normal color, warm HEENT: [place] palpebral conjunctivae, no ptosis, dry buccal mucosa, nasal cannula in place NECK : Supple, no tenderness CHEST : Decreased breath sounds, diffuse expiratory wheezes,, no tenderness HEART : RRR, no obvious murmurs ABDOMEN: Some distention, nontender EXTREMITIES : No LE swelling/tenderness, no other conspicuous deformities noted NEUROLOGIC : Coherent, no facial asymmetry, no other gross focality Results & Data Results & Data Vital Signs (Past 12 Hours) Vital Signs Temp Pulse Pulse Resp BP BP Pulse Ox 07/29/24 04:17 85 L 07/29/24 03:00 74 18 125/72 94 07/29/24 01:22 100 07/29/24 01:19 77 07/29/24 01:02 36.7 C 76 18 145/74 H 92 O2 Del Method 07/29/24 04:17 Room Air 07/29/24 03:00 Room Air 07/29/24 01:22 Room Air 07/29/24 01:19 07/29/24 01:02 Room Air Laboratory Results Laboratory Results WBC 7.16 K/ul (4.8-10.8) 07/29/24 01:18 RBC 4.67 M/uL (4.70-6.10) L 07/29/24 01:18 Hgb 14.0 g/dl (14.0-18.0) 07/29/24 01:18 Hct 41.5 % (42.0-52.0) L 07/29/24 01:18 MCV 88.9 fL (80.0-100.0) 07/29/24 01:18 MCH 30.0 pg (25.0-34.0) 07/29/24 01:18 MCHC 33.7 g/dL (32.0-36.0) 07/29/24 01:18 RDW Std Deviation 43.9 fL (36.4-46.3) 07/29/24 01:18 RDW Coeff of [place] 13.5 % (11.5-14.5) 07/29/24 01:18 Plt Count 269 K/uL (130-400) 07/29/24 01:18 MPV 10.5 fL (9.4-12.4) 07/29/24 01:18 Immature Gran % (Auto) 0.3 % 07/29/24 01:18 Neut % (Auto) 54.5 % 07/29/24 01:18 Lymph % (Auto) 27.9 % 07/29/24 01:18 Bucks % (Auto) 9.5 % 07/29/24 01:18 Eos % (Auto) 7.1 % 07/29/24 01:18 Baso % (Auto) 0.7 % 07/29/24 01:18 Neut # (Auto) 3.90 K/uL (1.40-6.50) 07/29/24 01:18 Lymph # (Auto) 2.00 K/uL (1.20-3.40) 07/29/24 01:18 Bucks # (Auto) 0.68 K/uL (0.11-0.59) H 07/29/24 01:18 Eos # (Auto) 0.51 K/uL (0.00-0.50) H 07/29/24 01:18 Baso # (Auto) 0.05 K/uL (0.00-0.20) 07/29/24 01:18 Immature Gran # (Auto) 0.02 K/uL (0.01-0.20) 07/29/24 01:18 Sodium 140 mmol/L (136-145) 07/29/24 01:18 Potassium 3.6 mmol/L (3.5-5.1) 07/29/24 01:18 Chloride 107 mmol/L (98-107) 07/29/24 01:18 Carbon Dioxide 27 mmol/L (21-32) 07/29/24 01:18 Anion Gap 6 (3-11) 07/29/24 01:18 BUN 11 mg/dl (6-23) 07/29/24 01:18 Creatinine 1.00 mg/dl (0.6-1.4) 07/29/24 01:18 Est Cr Clr Drug Dosing 86.1 ml/min 07/29/24 01:18 eGFR 83.52 07/29/24 01:18 BUN/Creatinine Ratio 11.0 (10-20) 07/29/24 01:18 Glucose 102 mg/dl (70-99(Fasting)) H 07/29/24 01:18 Calcium 8.7 mg/dl (8.6-10.3) 07/29/24 01:18 Magnesium 1.8 mg/dl (1.7-2.4) 07/29/24 01:18 Total Bilirubin 0.4 mg/dl (0.2-1.0) 07/29/24 01:18 AST 15 U/L (13-39) 07/29/24 01:18 ALT 13 U/L (7-52) 07/29/24 01:18 Alkaline Phosphatase 72 U/L (34-104) 07/29/24 01:18 Troponin I High Sens 7.0 pg/ml (0-20) 07/29/24 01:18 Total Protein 6.2 gm/dl (6.0-8.3) 07/29/24 01:18 Albumin 4.1 gm/dl (3.4-5.0) 07/29/24 01:18 Globulin 2.1 gm/dl (2.5-4.0) L 07/29/24 01:18 Albumin/Globulin Ratio 2.0 (0.9-2) 07/29/24 01:18 Lipase 29 U/L (11-82) 07/29/24 01:18 Adenovirus (PCR) Not Detected (NotDetected) 07/29/24 01:10 B. pertussis DNA (PCR) Not Detected (NotDetected) 07/29/24 01:10 B.parapertussis DNA PCR Not Detected (NotDetected) 07/29/24 01:10 C. pneumoniae DNA (PCR) Not Detected (NotDetected) 07/29/24 01:10 Coronavirus OC43 (PCR) Not Detected (NotDetected) 07/29/24 01:10 Coronavirus HKU1 (PCR) Not Detected (NotDetected) 07/29/24 01:10 Coronavirus 229E (PCR) Not Detected (NotDetected) 07/29/24 01:10 SARS-CoV-2 (PCR) Not Detected (NotDetected) 07/29/24 01:10 Coronavirus NL63 (PCR) Not Detected (NotDetected) 07/29/24 01:10 Human Metapneumovir PCR Not Detected (NotDetected) 07/29/24 01:10 Influenza Type A (PCR) Not Detected (NotDetected) 07/29/24 01:10 Influenza Type B (PCR) Not Detected (NotDetected) 07/29/24 01:10 M. pneumoniae (PCR) Not Detected (NotDetected) 07/29/24 01:10 Parainfluenza 1 (PCR) Not Detected (NotDetected) 07/29/24 01:10 Parainfluenza 2 (PCR) Not Detected (NotDetected) 07/29/24 01:10 Parainfluenza 3 (PCR) Not Detected (NotDetected) 07/29/24 01:10 Parainfluenza 4 (PCR) Not Detected (NotDetected) 07/29/24 01:10 RSV (PCR) Not Detected (NotDetected) 07/29/24 01:10 Entero/Rhino (PCR) Not Detected (NotDetected) 07/29/24 01:10 Impressions Chest X-Ray 07/29/24 01:18 EXAM: XR chest 1V portable CLINICAL HISTORY: SOB JMF TECHNIQUE: X-ray image of the chest is obtained in AP portable projection. COMPARISON: 12/16/2023 FINDINGS: Pulmonary Parenchyma: Prominent central bronchovascular markings. 1.2 cm nodular opacity in the right mid zone. No evidence of consolidation, collapse, or other focal opacities. No evidence of pleural effusion or pleural thickening. Heart and Mediastinum: Heart size and shape are normal. No mediastinal widening or masses. Prominent hilar shadows. Bony Thorax: Mild degenerative changes of the visualized skeleton. Soft Tissues: Soft tissues overlying the chest wall are unremarkable. IMPRESSION: 1. Prominent bronchovascular markings, clinical correlation is advised to assess for lung congestion/bronchitis.(More conspicuous on the present study, mostly on the left perihilar region). 2. Prominent hilar shadows could represent congested pulmonary arteries, which appear nearly stable since the previous study. 3. 1.2 cm nodular opacity in the right mid zone, which appears nearly stable since the previous study. Electronically signed by Fadi Trujillo 07-29-2024 02:59 AM Diagnostic Findings EKG as per my interpretation : Rate 70, NSR, LAD, LAFB, RBBB, T wave abnormalities septal leads
[2024-07-29] MEDS ORDERED: ACETAMINOPHEN 325 MG TAB PO PRN (05:17)
[2024-07-29] MEDS ORDERED: hydrOXYzine HCl 10 MG TAB PO PRN (05:18)
[2024-07-29] MEDS ORDERED: PROMETHAZINE 6.25 MG/50.25 ML BAG IV PRN (05:18)
[2024-07-29] MEDS ORDERED: oxyCODONE HCL IR 5 MG TAB (IMMEDIATE RELEASE) PO PRN (05:18)
[2024-07-29] MEDS: OPTIRAY 320 125ml IV ONE (06:11)
[2024-07-29 06:39] LABS: Base Excess VBG 2.7 mEq/L; HCO3 VBG 28 mmol/L; Oxygen Saturation VBG 77.9 %; PCO2 VBG 44 mmHg (38-50); PO2 VBG 45 mmHg; pH VBG 7.41 (7.36-7.41)
--- NOTE | 2024-07-29 07:02 | CT Scan Report ---
EXAM: CT angio chest PE protocol CLINICAL HISTORY: CHEST PAIN WITH SOB, 118 ML OPTIRAY 320 TECHNIQUE: Contiguous axial CT angiographic images of the chest were acquired with the administration of intravenous contrast. Coronal and sagittal reconstructions were also obtained. One of these 3D techniques was utilized: Maximum Intensity Pixel (MIP), 3D Reconstructed Images, Volume Rendered Images, Surface Shaded Rendering. One of the following dose reduction techniques were utilized for this exam: Automated exposure control, adjustment of the mA and/or kV according to patient size, and use of iterative reconstruction. COMPARISON: X-ray dated 07/29/[address] dated 07/24/2018. FINDINGS: Aorta: No evidence of aneurysm, dissection, or significant atherosclerotic changes. Aortic arch and descending thoracic aorta are unremarkable. Pulmonary Arteries: Pulmonary arteries are normal in size and opacification. No evidence of pulmonary embolism. No stenosis or filling defects. Superior Vena Cava (SVC) and Inferior Vena Cava (IVC): Normal opacification and caliber. No evidence of thrombus or obstruction. Mediastinum: No mediastinal mass or lymphadenopathy. Normal appearance of the thymus. Heart: Normal size and morphology of the heart. No pericardial effusion. Lungs: A well-defined calcified nodule measures 1.2cm in the anterior right upper lobe. (stable) A 2.3cm bulla in the right middle lobe. (stable) Two small nodules measure less than 6mm on the oblique fissure. (stable) A small subpleural atelectasis in the right middle lobe. (regression in comparison with CT on 07/24/2018.) Faint ground glass opacities were noted in the left lung base, likely due to mild edema. No pleural effusion or thickening. Bones: No fractures or lytic/sclerotic lesions of the visualized bony structures. Normal alignment and bone density. Soft Tissues: Normal appearance of the visualized soft tissues. No abnormal masses or fluid collections. A small hiatal hernia is noted. IMPRESSION: 1. No evidence of pulmonary embolism. 2. Demonstration of stable nodules and bulla in comparison with CT on 07/24/2018. 3. Faint ground glass opacities were noted in the left lung base, likely due to mild edema. 4. A small hiatal hernia is noted. Electronically signed by Faustino Mazariegos 07-29-2024 07:00 AM
[2024-07-29] MEDS: ALBUT/IPRATROP 3MG/0.5MG NEB 3 ML VIAL NEB SCH (07:09)
[2024-07-29] MEDS: ALBUMIN 25% 12.5 GM/50 ML VIAL IV STA (07:52)
[2024-07-29] MEDS: ENOXAPARIN INJ 40 MG/0.4 ML SYR SQ SCH (08:44)
--- NOTE | 2024-07-29 13:01 | Hospitalist Progress Note ---
Date of Service July 29, 2024 Assessment & Plan (1) Acute hypoxemic respiratory failure: Plan Pt is a 64yoM with PMHx significant for pulmonary nodules, ongoing tobacco abuse, urolithiasis who presents for further evaluation of SOB and chest tightness with noted acute hypoxic respiratory failure. Acute hypoxic respiratory Failure Complicated Bronchitis COPD Exacerbation Patient with hypoxia in the 80s, Does not use oxygen at home Chest x-ray noting acute bronchitis changes, stable pulmonary artery changes as well as a "1.2 cm nodular opacity in the right mid zone, which appears nearly stable since the previous study." Chest CTA with no noted PE VBG normal respiratory panel negative Symptoms likely secondary to complicated bronchitis Continue with p.o. doxycycline, prednisone burst Consider pulmonary consult if no improvement Encouraged tobacco cessation Oxygen supplementation as needed, wean as tolerated Improving Solid pulmonary nodule, right stable PCP followup Diet: Regular DVT prophylaxis: Lovenox subcu Dispo: Home once medically stable Admission and Anticipated Discharge Date Admission Date: July 29, 2024 Subjective Patient was seen sitting up in bed States that his chest tightness that he had when he came in had improved. States the breathing treatments are helping Notes he is a longtime smoker and has done so for many years, would like an early discharge tomorrow as he states he has tickets to go to a concert with his later in the evening Review of Systems Review of Systems: All systems reviewed & are unremarkable except as noted in Subjective Physical Exam Physical Exam: General: Alert, oriented. No acute distress Psych: Appropriate mood and affect HEENT: NC/AT CV: RRR Resp: Breath sounds with wheezing bilaterally, no increased effort of breathing Abdomen: Soft, nontender Extremities:no edema in lower extremities bilaterally. Results & Data Results & Data Vital Signs (Past 12 Hours) Vital Signs Temp Pulse Pulse Pulse Resp BP BP 07/29/24 11:42 36.5 C 94 H 18 145/57 H 07/29/24 11:07 84 16 07/29/24 07:59 36.5 C 77 18 126/79 07/29/24 07:09 84 16 07/29/24 07:00 85 07/29/24 06:28 07/29/24 06:28 36.4 C L 87 18 157/90 H 07/29/24 06:09 36.4 C L 87 18 157/90 H 07/29/24 05:06 78 07/29/24 05:03 83 18 134/73 07/29/24 04:39 78 15 107/65 07/29/24 04:17 07/29/24 03:00 68 16 125/72 07/29/24 03:00 74 18 125/72 07/29/24 01:22 07/29/24 01:19 77 07/29/24 01:02 36.7 C 76 18 145/74 H Pulse Ox O2 Del Method O2 Flow Rate 07/29/24 11:42 93 Room Air 07/29/24 11:07 93 Room Air 07/29/24 07:59 92 Room Air 07/29/24 07:09 95 Room Air 07/29/24 07:00 07/29/24 06:28 Room Air 07/29/24 06:28 95 Room Air 07/29/24 06:09 95 Room Air 07/29/24 05:06 07/29/24 05:03 96 Nasal Cannula 2 07/29/24 04:39 96 Nasal Cannula 2 07/29/24 04:17 85 L Room Air 07/29/24 03:00 93 Room Air 07/29/24 03:00 94 Room Air 07/29/24 01:22 100 Room Air 07/29/24 01:19 07/29/24 01:02 92 Room Air Diagnostic Findings Chest X-Ray 07/29/24 01:18 EXAM: XR chest 1V portable CLINICAL HISTORY: SOB JMF TECHNIQUE: X-ray image of the chest is obtained in AP portable projection. COMPARISON: 12/16/2023 FINDINGS: Pulmonary Parenchyma: Prominent central bronchovascular markings. 1.2 cm nodular opacity in the right mid zone. No evidence of consolidation, collapse, or other focal opacities. No evidence of pleural effusion or pleural thickening. Heart and Mediastinum: Heart size and shape are normal. No mediastinal widening or masses. Prominent hilar shadows. Bony Thorax: Mild degenerative changes of the visualized skeleton. Soft Tissues: Soft tissues overlying the chest wall are unremarkable. IMPRESSION: 1. Prominent bronchovascular markings, clinical correlation is advised to assess for lung congestion/bronchitis.(More conspicuous on the present study, mostly on the left perihilar region). 2. Prominent hilar shadows could represent congested pulmonary arteries, which appear nearly stable since the previous study. 3. 1.2 cm nodular opacity in the right mid zone, which appears nearly stable since the previous study. Electronically signed by Fdai Trujillo 07-29-2024 02:59 AM Chest CTA 07/29/24 05:16 EXAM: CT angio chest PE protocol CLINICAL HISTORY: CHEST PAIN WITH SOB, 118 ML OPTIRAY 320 TECHNIQUE: Contiguous axial CT angiographic images of the chest were acquired with the administration of intravenous contrast. Coronal and sagittal reconstructions were also obtained. One of these 3D techniques was utilized: Maximum Intensity Pixel (MIP), 3D Reconstructed Images, Volume Rendered Images, Surface Shaded Rendering. One of the following dose reduction techniques were utilized for this exam: Automated exposure control, adjustment of the mA and/or kV according to patient size, and use of iterative reconstruction. COMPARISON: X-ray dated 07/29/[address] dated 07/24/2018. FINDINGS: Aorta: No evidence of aneurysm, dissection, or significant atherosclerotic changes. Aortic arch and descending thoracic aorta are unremarkable. Pulmonary Arteries: Pulmonary arteries are normal in size and opacification. No evidence of pulmonary embolism. No stenosis or filling defects. Superior Vena Cava (SVC) and Inferior Vena Cava (IVC): Normal opacification and caliber. No evidence of thrombus or obstruction. Mediastinum: No mediastinal mass or lymphadenopathy. Normal appearance of the thymus. Heart: Normal size and morphology of the heart. No pericardial effusion. Lungs: A well-defined calcified nodule measures 1.2cm in the anterior right upper lobe. (stable) A 2.3cm bulla in the right middle lobe. (stable) Two small nodules measure less than 6mm on the oblique fissure. (stable) A small subpleural atelectasis in the right middle lobe. (regression in comparison with CT on 07/24/2018.) Faint ground glass opacities were noted in the left lung base, likely due to mild edema. No pleural effusion or thickening. Bones: No fractures or lytic/sclerotic lesions of the visualized bony structures. Normal alignment and bone density. Soft Tissues: Normal appearance of the visualized soft tissues. No abnormal masses or fluid collections. A small hiatal hernia is noted. IMPRESSION: 1. No evidence of pulmonary embolism. 2. Demonstration of stable nodules and bulla in comparison with CT on 07/24/2018. 3. Faint ground glass opacities were noted in the left lung base, likely due to mild edema. 4. A small hiatal hernia is noted. Electronically signed by Faustino Mazariegos 07-29-2024 07:00 AM
--- NOTE | 2024-07-29 16:15 | Electrocardiogram Report ---
Test Reason : Blood Pressure : */* mmHG Vent. Rate : 71 BPM Atrial Rate : 71 BPM P-R Int : 122 ms QRS Dur : 116 ms QT Int : 394 ms P-R-T Axes : 59 -12 59 degrees QTcB Int : 428 ms Normal sinus rhythm Right bundle branch block Abnormal ECG When compared with ECG of 16-Dec-2023 15:49, QRS duration has decreased Confirmed by Reed Jon ([id number]) on 07/29/2024 4:15:08 PM Referred By: REFERRED SELF Confirmed By: Reed Jon
[2024-07-29] MEDS: DOXYCYCLINE HYCLATE 100 MG CAP PO SCH (20:30)
[2024-07-30 05:54] LABS: Basophils # (auto) 0.02 K/uL (0.00-0.20); Basophils % (auto) 0.2 %; Eosinophils # (auto) 0.12 K/uL (0.00-0.50); Hematocrit (blood only) 37.9 % (42.0-52.0); Hemoglobin 12.8 g/dl (14.0-18.0); Immature Granulocytes # (auto) 0.04 K/uL (0.01-0.20); Immature Granulocytes % (auto) 0.3 %; Lymphocytes # (auto) 1.94 K/uL (1.20-3.40); Lymphocytes % (auto) 15.9 %; Mean Corpuscular Hgb Conc 33.8 g/dL (32.0-36.0); Mean Platelet Volume 10.7 fL (9.4-12.4); Monocytes # (auto) 1.19 K/uL (0.11-0.59); Monocytes % (auto) 9.8 %; Neutrophils # (auto) 8.86 K/uL (1.40-6.50); Neutrophils % (auto) 72.8 %; Platelet Count 262 K/uL (130-400); RDW Coefficient of Variation 13.8 % (11.5-14.5); RDW Standard Deviation 45.2 fL (36.4-46.3); Red Blood Count 4.26 M/uL (4.70-6.10); White Blood Count 12.17 K/ul (4.8-10.8)
[2024-07-30 06:04] LABS: BUN Creatinine Ratio 14.7 (10-20); Calcium 8.7 mg/dl (8.6-10.3); Potassium 4.1 mmol/L (3.5-5.1)
[2024-07-30] MEDS: LEVALBUTEROL 1.25 MG/3 ML NEB NEB SCH (07:12)
[2024-07-30] MEDS: IPRATROPIUM BROMIDE NEB SOLN 0.02% 0.5MG/2.5ML VIAL INH SCH (07:12)
[2024-07-30] MEDS ORDERED: PNEUMOCOCCAL VACCINE (PCV20) 20-VAL CONJ-DIP CRM/PF 0.5 ML SYR IM ONE (08:00)
[2024-07-30] MEDS ORDERED: INFLUENZA VACC TS2024-25(65y+)/PF (IIV3) 0.5mL Syr IM ONE (08:00)
[2024-07-30] MEDS: predniSONE 20 MG TAB PO SCH (08:23)
--- NOTE | 2024-07-30 10:36 | Discharge Summary ---
Discharge Summary Date of Service July 30, 2024 Principal Dx & Hospital Course #1 = Principal Diagnosis (1) Acute hypoxemic respiratory failure: Plan Pt is a 64yoM with PMHx significant for pulmonary nodules, ongoing tobacco ab use, urolithiasis who presents for further evaluation of SOB and chest tightness with noted acute hypoxic respiratory failure. Acute hypoxic respiratory Failure Complicated Bronchitis COPD Exacerbation Patient with hypoxia in the 80s, Does not use oxygen at home Chest x-ray noting acute bronchitis changes, stable pulmonary artery changes as well as a "1.2 cm nodular opacity in the right mid zone, which appears nearly stable since the previous study." Chest CTA with no noted PE VBG normal respiratory panel negative Symptoms likely secondary to complicated bronchitis Continue with p.o. doxycycline, prednisone burst Consider pulmonary consult if no improvement Encouraged tobacco cessation Oxygen supplementation as needed, wean as tolerated. Pt completed a two-step before discharge and did not need oxygen for home use. Close PCP follow-up after discharge as well as with pulmonology. Patient was unable to wait for pulmonology evaluation before discharge as he wanted to be discharged to take his to a concert that had already been previously canceled. Pt opting to follow-up outpatient. Solid pulmonary nodule, right stable PCP followup for continued monitoring Notes For Next Care Provider please ensure follow-up with pulmonology after discharge Medication Changes From Visit Albuterol nebules Doxycycline 100mg BID x 4 more days Prednisone 60mg taper Admission HPI Per Admitting Provider History obtained from patient, family, and records. Medical history significant for pulmonary nodules, ongoing tobacco abuse, urolithiasis. Last confinement February 2024 for facial/odontogenic infection status post drainage/tooth extraction. Few days history of junky cough symptoms productive of green sputum with chest pain and worsening SOB. Not sure about sick contacts. Denies fluid retention. Denies aspiration. Doxycycline, neb treatment, Solu-Medrol administered at the ER. O2 sats 80s after interventions. 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 No acute distress Psych: Appropriate mood and affect HEENT: NC/AT CV: RRR Resp: Breath sounds with wheezing bilaterally, no increased effort of breathing Abdomen: Soft, nontender Extremities:no edema in lower extremities bilaterally. Updated Medication List Medication Instructions Recorded Confirmed Type acetaminophen 500 mg tablet 1,000 mg PO Q6H PRN Pain 03/08/24 07/29/24 History (Tylenol Extra Strength) albuterol sulfate 2.5 mg/3 mL 2.5 mg (3 mL) inhalation Q8H PRN 07/30/24 Rx (0.083 %) solution for nebulization bronchospasm #75 mL doxycycline hyclate 100 mg capsule 100 mg PO BID #8 caps 07/30/24 Rx prednisone 20 mg tablet See Rx Instructions .Route 07/30/24 Rx .COMPLEX #20 tabs Hospital Stay Data Consultations 07/29/24 04:38 ED Decision to Admit Stat Diagnostic Imagining Performed 07/29/24 05:16 CT angio chest PE protocol Stat Chest X-Ray 07/29/24 01:18 EXAM: XR chest 1V portable CLINICAL HISTORY: SOB JMF TECHNIQUE: X-ray image of the chest is obtained in AP portable projection. COMPARISON: 12/16/2023 FINDINGS: Pulmonary Parenchyma: Prominent central bronchovascular markings. 1.2 cm nodular opacity in the right mid zone. No evidence of consolidation, collapse, or other focal opacities. No evidence of pleural effusion or pleural thickening. Heart and Mediastinum: Heart size and shape are normal. No mediastinal widening or masses. Prominent hilar shadows. Bony Thorax: Mild degenerative changes of the visualized skeleton. Soft Tissues: Soft tissues overlying the chest wall are unremarkable. IMPRESSION: 1. Prominent bronchovascular markings, clinical correlation is advised to assess for lung congestion/bronchitis.(More conspicuous on the present study, mostly on the left perihilar region). 2. Prominent hilar shadows could represent congested pulmonary arteries, which appear nearly stable since the previous study. 3. 1.2 cm nodular opacity in the right mid zone, which appears nearly stable since the previous study. Electronically signed by Fadi Trujillo 07-29-2024 02:59 AM Chest CTA 07/29/24 05:16 EXAM: CT angio chest PE protocol CLINICAL HISTORY: CHEST PAIN WITH SOB, 118 ML OPTIRAY 320 TECHNIQUE: Contiguous axial CT angiographic images of the chest were acquired with the administration of intravenous contrast. Coronal and sagittal reconstructions were also obtained. One of these 3D techniques was utilized: Maximum Intensity Pixel (MIP), 3D Reconstructed Images, Volume Rendered Images, Surface Shaded Rendering. One of the following dose reduction techniques were utilized for this exam: Automated exposure control, adjustment of the mA and/or kV according to patient size, and use of iterative reconstruction. COMPARISON: X-ray dated 07/29/[address] dated 07/24/2018. FINDINGS: Aorta: No evidence of aneurysm, dissection, or significant atherosclerotic changes. Aortic arch and descending thoracic aorta are unremarkable. Pulmonary Arteries: Pulmonary arteries are normal in size and opacification. No evidence of pulmonary embolism. No stenosis or filling defects. Superior Vena Cava (SVC) and Inferior Vena Cava (IVC): Normal opacification and caliber. No evidence of thrombus or obstruction. Mediastinum: No mediastinal mass or lymphadenopathy. Normal appearance of the thymus. Heart: Normal size and morphology of the heart. No pericardial effusion. Lungs: A well-defined calcified nodule measures 1.2cm in the anterior right upper lobe. (stable) A 2.3cm bulla in the right middle lobe. (stable) Two small nodules measure less than 6mm on the oblique fissure. (stable) A small subpleural atelectasis in the right middle lobe. (regression in comparison with CT on 07/24/2018.) Faint ground glass opacities were noted in the left lung base, likely due to mild edema. No pleural effusion or thickening. Bones: No fractures or lytic/sclerotic lesions of the visualized bony structures. Normal alignment and bone density. Soft Tissues: Normal appearance of the visualized soft tissues. No abnormal masses or fluid collections. A small hiatal hernia is noted. IMPRESSION: 1. No evidence of pulmonary embolism. 2. Demonstration of stable nodules and bulla in comparison with CT on 07/24/2018. 3. Faint ground glass opacities were noted in the left lung base, likely due to mild edema. 4. A small hiatal hernia is noted. Electronically signed by Faustino Mazariegos 07-29-2024 07:00 AM Pending Results Patient Have Any Pending Studies at Discharge: No Discharge Instructions Given to Patient (Per Discharging Provider) Juan, Damian were admitted and treated for an acute COPD exacerbation. We treated you with breathing treatments as well as steroids and the antibiotic doxycycline. Please continue with the breathing treatments at home with your nebulizer machine. We renewed the albuterol Nebules and sent you in a prescription. Please continue with the prednisone taper as prescribed to help with your breathing as well. Please continue with 4 more days of the antibiotic doxycycline. Since the quarrying manager could not see you before you left, it is very important that you keep close follow-up with your primary care provider and quarrying manager after discharge. Please keep close follow up with your primary care provider after discharge. Please do not hesitate to come back to the emergency room if your symptoms worsen or return. It was a pleasure taking care of you while you were here. Total Time Total Time Spent Total Time Spent (In Minutes): 65
[2024-07-30 11:25] VITALS: PULSE 86; RESP 20; TEMP 97.3; O2SAT 97
[2024-07-30 11:51] VITALS: BP 121/78
== END 2024-07-30 13:05 | disposition home or self-care (01) | DRG 190 ==
LOC: ED 00:59 → 2N 04:50
DX: Z11.52 Encounter for screening for COVID-19; J20.9 Acute bronchitis, unspecified; J96.01 Acute respiratory failure with hypoxia; R91.1 Solitary pulmonary nodule; J44.1 Chronic obstructive pulmonary disease with (acute) exacerbation; J44.0 Chronic obstructive pulmonary disease with (acute) lower respiratory infection; F17.210 Nicotine dependence, cigarettes, uncomplicated; Z79.899 Other long term (current) drug therapy

== ENCOUNTER 2024-12-08 06:12 | Inpatient (IN) ==
[2024-12-08] MEDS: ONDANSETRON INJ 2 MG/ML 2 ML VIAL IV STA (06:42)
[2024-12-08] MEDS: MoRPHine SULFATE 4 MG/ML 1 ML CARP\\VIAL IV PRN (06:42)
[2024-12-08] MEDS: SODIUM CHLORIDE 0.9% 1,000 ML IV ONE (06:42)
--- NOTE | 2024-12-08 06:43 | Emergency Department Note ---
Impression & Plan Calculus of distal right ureter, Hypoxia, Acute right flank pain ED Provider Note NAME: DENICE ECHEVARRIA AGE: 64 SEX: M : 1960 ARRIVES VIA: Walk-In INFORMANT: Patient, ED PROVIDER(S): Sina Vines DO CHIEF COMPLAINT: Flank pain HPI: The patient is a 64-year-old male who presented to the emergency department for an evaluation of flank pain. The patient was seen in our facility 2 nights ago for similar complaints. He was started on an antibiotic for presumed urinary tract infection was also started on pain medication for a distal ureteral calculi. The patient has noticed some hematuria. He is also been having some nausea vomiting. He denies having any fever or chest pain. The patient did take a pain medication prior to coming into the emergency department. ROS: See above HPI for pertinent positives & negatives. A total of 10 systems reviewed and were otherwise negative. PAST MEDICAL HISTORY: See Below PAST SURGICAL HISTORY: See Below FAMILY HISTORY: See Below SOCIAL HISTORY: See Below HOME MEDICATIONS: See Below ALLERGIES: See Below VITALS: See Below PHYSICAL EXAMINATION: GENERAL: The patient is awake and alert. The patient is anxious and appears to be uncomfortable. EYES: The conjunctivae are clear. The pupils are round and reactive. EARS, NOSE, MOUTH AND THROAT: The nose is without any evidence of any deformity. NECK: The neck is nontender and supple. RESPIRATORY: Diminished breath sounds are noted throughout with expiratory wheezing. There is no tachypnea or conversational dyspnea. CARDIOVASCULAR: Regular rate and rhythm noted there no murmurs rubs or gallops normal S1 normal S2. GASTROINTESTINAL: The abdomen was soft and mildly distended. There is right- sided tenderness to palpation but no specific guarding or rigidity. BACK: Right CVA tenderness was noted to percussion. Range of motion appears intact MUSCULOSKELETAL/EXTREMITIES: There is no evidence of gross deformity full range of motion is noted in the hips and shoulders. SKIN: There is no obvious evidence of any rash. There are no petechiae, pallor or cyanosis noted. NEUROLOGIC: Patient is awake alert and oriented x3 MEDICAL DECISION MAKING: The patient is a 64-year-old male who presented to the emergency department with flank pain. The patient was seen in our facility recently. He was diagnosed with a distal ureteral calculi. The patient returns for worsening pain. The patient did take pain medication prior to arrival. He was wheezing but I feel like his pain medication is likely why he was suffering from hypoxia. He was placed on supplemental oxygen and was doing much better. He was treated with IV pain medication in the emergency department. He was reevaluated multiple times. He continues to have significant pain. I do not feel that he would be a good candidate for outpatient management. For this reason I [facility] have agreed to evaluate the patient in the emergency department for further management and disposition. Triage Nursing notes reviewed. Prior medical records reviewed Vital Signs: reviewed and remarkable for hypoxia. Differential diagnosis: Renal colic, UTI, appendicitis, diverticulitis, mesenteric ischemia, aortic pathology, infections, inflammatory bowel disease, PUD, biliary pathology, as well as other pathologies. ER treatment provided: See below Diagnostics interpreted by me: ECG: none Cardiac Monitoring: An order was placed for continuous cardiac monitoring. The monitor shows a rate of 75 bpm with sinus rhythm. Laboratory studies: [As stated above and show below.] Imaging studies: [See below.] [Radiographic imaging was reviewed by myself] Consultation(s): I discussed this case with Gina who is [facility] Past Med/Surg History Problem List (Updated 12/08/24 @ 08:43 by Sina Vines DO) Acute right flank pain (Acute) Hypoxia (Acute) Calculus of distal right ureter (Acute) Kidney stones (Acute) Nephrolithiasis Idiopathic anaphylaxis Pruritus Acute exacerbation of chronic obstructive pulmonary disease (COPD) (Acute) Hypoxia (Acute) Acute hypoxemic respiratory failure Tobacco abuse (Acute) Leukocytosis (Acute) Tobacco abuse (Chronic) Lung nodule (Chronic) Medical History Facial cellulitis Abscess, dental Preseptal cellulitis History of kidney stones Surgical History Hx of oral surgery (03/08/24) p Right Upper Facial Abscess Incision and Drainage(Right) - Izaiah Mckinley DMD s Extraction x10(Bilateral) - Izaiah Mckinley DMD History of lithotripsy Family History Other Cancer Heart disease Social History Smoking Status: Never smoker Tobacco Type: Cigarettes Cigarettes Per Day: 1/2 pack; Hx Alcohol Use: Yes Alcohol type: beer Hx Substance Use: No Preferred Language: Irish Communication Ability: Effective Visual Impairment: No Limitations Manager [employer] Required: No Beliefs That Will Affect Care: None marital status: Single Current Living Situation: Spouse and Family Current Living Situation Comment: , son, and daughter in law current occupational status: employed Feels Safe at Home: Yes Assistive Devices: None Allergies Allergies Allergy/AdvReac Type Severity Reaction Status Date / Time No Known Allergies Allergy Unknown Verified 12/06/24 08:24 Home Meds Home Medications Medication Instructions Recorded Confirmed epinephrine 0.3 mg/0.3 mL 0.3 mg IM Q15M PRN 11/30/24 12/06/24 injection, auto-injector (EpiPen) atorvastatin 10 mg tablet (Lipitor) 10 mg PO DAILY 12/06/24 12/06/24 cholecalciferol (vitamin D3) 250 250 mcg PO DAILY 12/06/24 12/06/24 mcg (10,000 unit) capsule fluticasone 100 mcg-salmeterol 50 1 inh inhalation BID 12/06/24 12/06/24 mcg/dose blistr powdr for inhalation (Wixela Inhub) Previous Rx's Medication Instructions Recorded albuterol sulfate 2.5 mg/3 mL 2.5 mg (3 mL) inhalation Q8H PRN 07/30/24 (0.083 %) solution for nebulization bronchospasm #75 mL ciprofloxacin HCl 500 mg tablet 500 mg PO BID #14 tabs 12/07/24 ondansetron 4 mg disintegrating 4 mg PO Q8H 5 days #15 tabs 12/07/24 tablet tamsulosin 0.4 mg capsule (Flomax) 0.4 mg PO DAILY #10 caps 12/07/24 Results & Data (ED) Vital Signs Vital Signs - 24 hr 12/08/24 06:12 12/08/24 06:26 12/08/24 06:26 Temperature 36.5 C 36.5 C Temperature Source Temporal Artery Scan Oral Pulse Rate 80 72 Pulse Rate [Apical] 67 Pulse Rhythm Pulse Rhythm [Apical] Regular Pulse Strength [Apical] Normal Respiratory Rate 17 19 Respiratory Effort / Characteristics Non-Labored Spontaneous Non-Labored Spontaneous Respiratory Depth Normal Normal Respiratory Pattern Regular Regular Blood Pressure 141/76 H Blood Pressure [Right Arm] 133/82 Blood Pressure Mean 97 Blood Pressure Mean [Right Arm] 99 Pulse Oximetry 92 88 L Oxygen Delivery Method Room Air Room Air Oxygen Flow Rate Sepsis Recent Fever Within 48 Hours No Sepsis New/Unexplained Change in Mental Status N/A Sepsis Action Taken by Nursing No Action Required 12/08/24 06:45 12/08/24 06:46 Temperature Temperature Source Pulse Rate 81 75 Pulse Rate [Apical] Pulse Rhythm Regular Regular Pulse Rhythm [Apical] Pulse Strength [Apical] Respiratory Rate 18 18 Respiratory Effort / Characteristics Respiratory Depth Respiratory Pattern Blood Pressure Blood Pressure [Right Arm] Blood Pressure Mean Blood Pressure Mean [Right Arm] Pulse Oximetry 88 L 95 Oxygen Delivery Method Room Air Nasal Cannula Oxygen Flow Rate 2 Sepsis Recent Fever Within 48 Hours Sepsis New/Unexplained Change in Mental Status Sepsis Action Taken by Correction Medications Current Medication List: was personally reviewed by me Laboratory Data Attestation: I reviewed the patient's lab results. 12/08/24 06:36 12/08/24 06:36 Lab Results 12/08/24 Range/Units 06:36 WBC 9.24 (4.8-10.8) K/ul RBC 4.34 L (4.70-6.10) M/uL Hgb 12.8 L (14.0-18.0) g/dl Hct 38.4 L (42.0-52.0) % MCV 88.5 (80.0-100.0) fL MCH 29.5 (25.0-34.0) pg MCHC 33.3 (32.0-36.0) g/dL RDW Std Deviation 43.9 (36.4-46.3) fL RDW Coeff of Broa 13.5 (11.5-14.5) % Plt Count 264 (130-400) K/uL MPV 10.2 (9.4-12.4) fL Immature Gran % (Auto) 0.4 % Neut % (Auto) 71.9 % Lymph % (Auto) 16.2 % [place] % (Auto) 8.4 % Eos % (Auto) 2.8 % Baso % (Auto) 0.3 % Neut # (Auto) 6.63 H (1.40-6.50) K/uL Lymph # (Auto) 1.50 (1.20-3.40) K/uL [place] # (Auto) 0.78 H (0.11-0.59) K/uL Eos # (Auto) 0.26 (0.00-0.50) K/uL Baso # (Auto) 0.03 (0.00-0.20) K/uL Immature Gran # (Auto) 0.04 (0.01-0.20) K/uL Sodium 137 (136-145) mmol/L Potassium 3.4 L (3.5-5.1) mmol/L Chloride 105 (98-107) mmol/L Carbon Dioxide 28 (21-32) mmol/L Anion Gap 4 (3-11) BUN 10 (6-23) mg/dl Creatinine 0.94 (0.6-1.4) mg/dl Est Cr Clr Drug Dosing 98.7 ml/min eGFR 89.96 BUN/Creatinine Ratio 10.6 (10-20) Glucose 136 H (70-99(Fasting)) mg/dl Calcium 8.2 L (8.6-10.3) mg/dl Total Bilirubin 0.7 (0.2-1.0) mg/dl AST 13 (13-39) U/L ALT 9 (7-52) U/L Alkaline Phosphatase 67 (34-104) U/L Total Protein 6.1 (6.0-8.3) gm/dl Albumin 3.8 (3.4-5.0) gm/dl Globulin 2.3 L (2.5-4.0) gm/dl Albumin/Globulin Ratio 1.7 (0.9-2) Lipase 44 (11-82) U/L Administered Medications Morphine Sulfate (Morphine Sulfate 4 Mg/Ml 1 Ml Carp\Vial) 4 mg IV Q15M PRN PRN Reason: Pain Stop: 12/22/24 06:25 Last Admin: 12/08/24 08:12 Dose: 4 mg Documented By: L Admin: 12/08/24 06:42 Dose: 4 mg Documented By: MARYW Discontinued Medications Sodium Chloride (Nss) 1,000 mls @ 999 mls/hr IV .Q1H1M ONE Stop: 12/08/24 07:26 Last Infusion: 12/08/24 07:36 Dose: Infused Documented By: Admin: 12/08/24 06:42 Dose: 999 mls/hr Documented By: GLORIA Ondansetron HCl (Ondansetron Inj 2 Mg/Ml 2 Ml Vial) 4 mg IV NOW STA Stop: 12/08/24 06:27 Last Admin: 12/08/24 06:42 Dose: 4 mg Documented By: GLORIA Imaging Data Attestation: I personally reviewed and interpreted this imaging study as follows: My Impression: 1 view chest x-ray was obtained in the emergency department. My interpretation is no free air or definite infiltrate, final report below. KUB was obtained in the emergency department. My interpretation is no free air or definite bowel obstruction, final report below. Radiologist's Impression: Chest X-Ray 12/08/24 06:39 EXAM: XR chest 1V portable CLINICAL HISTORY: cough TECHNIQUE: X-ray image of the chest is obtained in AP portable projection. COMPARISON: 07/29/2024 FINDINGS: Pulmonary Parenchyma: Stable left lung basilar atelectatic plates. Stable right lung middle zone nodular opacity measuring 1.2 cm likely an old granuloma. Stable mild vascular congestion. No focal consolidation. No pleural effusion. No pneumothorax. Heart and Mediastinum: Heart size and shape are normal. No mediastinal widening or masses. Prominent hilar shadows. Bony Thorax: Mild degenerative changes of the visualized skeleton. Soft Tissues: Soft tissues overlying the chest wall are unremarkable. IMPRESSION: 1. No acute cardiopulmonary disease process. 2. No significant interval changes. 3. Stable left lung basilar atelectatic plates. 4. Stable right lung middle zone nodular opacity measuring 1.2 cm likely an old granuloma. 5. Stable mild vascular congestion. Electronically signed by Dennis Hope 12-08-2024 07:51 AM KUB X-Ray 12/08/24 06:39 EXAM: XR KUB/Abdomen 1 view CLINICAL HISTORY: Right flank pain. TECHNIQUE: X-ray image of the abdomen was obtained in AP position. COMPARISON: 12/07/2024 CT. FINDINGS: Gas Pattern: Gas pattern within the abdomen is normal. No evidence of bowel obstruction or distention. Soft Tissues: Right pelvic 2.8mm small radiopaque shadow. Suprapubic calcification noted likely prostatic concretions. Soft tissues of the abdomen appear normal without evidence of masses. Liver, spleen, and kidneys are of normal size and position. IMPRESSION: 1. Right pelvic 2.8mm small radiopaque shadow possibly corresponding to the previously noted lower ureteric calculus. 2. Suprapubic calcification noted, likely prostatic concretions. 3. No interval changes. Electronically signed by Dennis Hope 12-08-2024 07:55 AM Discharge Plan Visit Data Chief Complaint: Flank Pain Stated Complaint: right flank pain ED Provider: Sina Vines Discharge Problem: Calculus of distal right ureter, Hypoxia, Acute right flank pain Patient Disposition: Being Evaluated by Hospitalist Forms Stand Alone Forms: My [facility] Prescriptions Prescriptions: No Action epinephrine [EpiPen] 0.3 mg/0.3 mL auto-injector 0.3 mg IM Q15M PRN Rx Instructions: for 2 doses cholecalciferol (vitamin D3) 250 mcg (10,000 unit) capsule 250 mcg PO DAILY atorvastatin [Lipitor] 10 mg tablet 10 mg PO DAILY fluticasone propion-salmeterol [Wixela Inhub] 100-50 mcg/dose blister with device 1 inh inhalation BID ciprofloxacin HCl 500 mg tablet 500 mg PO BID Qty: 14 0RF tamsulosin [Flomax] 0.4 mg capsule 0.4 mg PO DAILY Qty: 10 0RF ondansetron 4 mg tablet,disintegrating 4 mg PO Q8H 5 Days Qty: 15 0RF albuterol sulfate 2.5 mg /3 mL (0.083 %) solution for nebulization 2.5 mg inhalation Q8H PRN (Reason: bronchospasm) Qty: 75 0RF Referrals Referrals: [facility] [Primary Care Provider] -
[2024-12-08 07:02] LABS: Basophils # (auto) 0.03 K/uL (0.00-0.20); Basophils % (auto) 0.3 %; Eosinophils # (auto) 0.26 K/uL (0.00-0.50); Eosinophils % (auto) 2.8 %; Hematocrit (blood only) 38.4 % (42.0-52.0); Hemoglobin 12.8 g/dl (14.0-18.0); Immature Granulocytes # (auto) 0.04 K/uL (0.01-0.20); Immature Granulocytes % (auto) 0.4 %; Lymphocytes % (auto) 16.2 %; Mean Corpuscular Hemoglobin 29.5 pg (25.0-34.0); Mean Corpuscular Hgb Conc 33.3 g/dL (32.0-36.0); Mean Corpuscular Volume 88.5 fL (80.0-100.0); Mean Platelet Volume 10.2 fL (9.4-12.4); Monocytes # (auto) 0.78 K/uL (0.11-0.59); Monocytes % (auto) 8.4 %; Neutrophils # (auto) 6.63 K/uL (1.40-6.50); Neutrophils % (auto) 71.9 %; Platelet Count 264 K/uL (130-400); RDW Coefficient of Variation 13.5 % (11.5-14.5); RDW Standard Deviation 43.9 fL (36.4-46.3); Red Blood Count 4.34 M/uL (4.70-6.10); White Blood Count 9.24 K/ul (4.8-10.8)
[2024-12-08 07:10] LABS: Albumin Globulin Ratio 1.7 (0.9-2); Albumin Level 3.8 gm/dl (3.4-5.0); BUN Creatinine Ratio 10.6 (10-20); Bilirubin,Total 0.7 mg/dl (0.2-1.0); Calcium 8.2 mg/dl (8.6-10.3); Creatinine Clr Calc Pharmacy 98.7 ml/min; Globulin 2.3 gm/dl (2.5-4.0); Potassium 3.4 mmol/L (3.5-5.1); Total Protein 6.1 gm/dl (6.0-8.3)
--- NOTE | 2024-12-08 07:51 | XRay Report ---
EXAM: XR chest 1V portable CLINICAL HISTORY: cough TECHNIQUE: X-ray image of the chest is obtained in AP portable projection. COMPARISON: 07/29/2024 FINDINGS: Pulmonary Parenchyma: Stable left lung basilar atelectatic plates. Stable right lung middle zone nodular opacity measuring 1.2 cm likely an old granuloma. Stable mild vascular congestion. No focal consolidation. No pleural effusion. No pneumothorax. Heart and Mediastinum: Heart size and shape are normal. No mediastinal widening or masses. Prominent hilar shadows. Bony Thorax: Mild degenerative changes of the visualized skeleton. Soft Tissues: Soft tissues overlying the chest wall are unremarkable. IMPRESSION: 1. No acute cardiopulmonary disease process. 2. No significant interval changes. 3. Stable left lung basilar atelectatic plates. 4. Stable right lung middle zone nodular opacity measuring 1.2 cm likely an old granuloma. 5. Stable mild vascular congestion. Electronically signed by Dennis Hope 12-08-2024 07:51 AM
--- NOTE | 2024-12-08 07:56 | XRay Report ---
EXAM: XR KUB/Abdomen 1 view CLINICAL HISTORY: Right flank pain. TECHNIQUE: X-ray image of the abdomen was obtained in AP position. COMPARISON: 12/07/2024 CT. FINDINGS: Gas Pattern: Gas pattern within the abdomen is normal. No evidence of bowel obstruction or distention. Soft Tissues: Right pelvic 2.8mm small radiopaque shadow. Suprapubic calcification noted likely prostatic concretions. Soft tissues of the abdomen appear normal without evidence of masses. Liver, spleen, and kidneys are of normal size and position. IMPRESSION: 1. Right pelvic 2.8mm small radiopaque shadow possibly corresponding to the previously noted lower ureteric calculus. 2. Suprapubic calcification noted, likely prostatic concretions. 3. No interval changes. Electronically signed by Dennis Hope 12-08-2024 07:55 AM
[2024-12-08] MEDS: ALBUT/IPRATROP 3MG/0.5MG NEB 3 ML VIAL NEB STA ×3 (08:47→13:28)
[2024-12-08] MEDS: POTASSIUM CHLORIDE / WTR 10 MEQ/100 ML PLCT IV SCH (09:05)
[2024-12-08] MEDS: POTASSIUM CHLORIDE CRTAB 20 MEQ TABCR PO STA (09:22)
[2024-12-08] MEDS: KETOROLAC TROMETHAMINE 15 MG/ML VIAL IV PRN (09:22)
[2024-12-08] MEDS: cefTRIAXone SODIUM 2,000 MG/50 ML BAG IV STA (09:23)
[2024-12-08] MEDS: SODIUM CHLORIDE 0.9% 1,000 ML IV SCH (09:23)
--- NOTE | 2024-12-08 09:27 | History & Physical Report ---
Date of Service December 08, 2024 Assessment & Plan (1) Calculus of distal right ureter: (2) Hypoxia: (3) COPD (chronic obstructive pulmonary disease): (4) HLD (hyperlipidemia): Plan This is a 64-year-old male who has a significant past medical history of COPD and hyperlipidemia who presents to ED secondary to right lower quadrant abdominal pain x [address] A/P from 12/07: 4.5x2.5mm at vesicoureteric junction KUB from 12/08 2.8mm R pelvic Shadow Labs unremarkable, UA from 12/07 is pending culture #Calculus of distal right ureter admit to medical consult urology Keep NPO until seen by urology pt with uncontrolled pain despite medications IV toradol for mild pain, oral Oxy IR for moderate and IV dilaudid for severe pain continue flomax, strain urine IVF NSS 150cc/hr Empiric IV ceftriaxone, await urine culture, pt was started on oral cipro on 12/07 a.m. and had 1 dose thus far #Hypoxia #COPD possible narcotic induce, no acute exacerbation CXR w/o acute abnormality pt with mild wheezing on exam but no increase cough or production duonebs TID and prn, continue maintenance inhaler wean o2 as able, Titrate to keep oxygen at or around 90% #HLD: chronic, stable continue statin #DVT ppx: SQ Lovenox FULL CODE PCP: Leigh Velarde, [facility] services Dispo: admit to medical Pt was seen and examined in collaboration with Dr. Escobar, please see addendum I spent a total of 50 minutes coordinating, documenting and providing care for this patient excluding time spent in the performance of separately billed services or time spent by another provider/QHP. History of Present Illness Chief Complaint: RLQ abd pain x 24hrs. Primary Care Provider: [facility] This is a 64-year-old male who has a significant past medical history of COPD and hyperlipidemia who presents to ED secondary to right lower quadrant abdominal pain x 24 hours. Of significance patient presented to the ED in early hours on 12/07 when he developed an acute onset of right lower quadrant pain while at work. CT scan of abdomen pelvis revealed a 4.5 x 2.5 mm right lower ureteral stone. He was seen and evaluated by urology and was discharged home with oral oxycodone, Zofran, oral Cipro and Flomax. He took 1 dose of the antibiotic thus far. He states he has been pushing fluids, but unable to eat or drink much due to nausea. On way to the hospital he did have an episode of vomiting. He last took an oxycodone at approximately 4 AM. 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 He denies any fever, chills, sweats, lightheadedness, dizziness, chest pain, shortness of breath, dysuria, hematuria, melena or hematochezia. He does admit to a chronic dry cough in the setting of his COPD. He feels his cough is unchanged and denies any productivity. He also reports a change in his urine stream. He has prior history of kidney stones in the past in which 1 required intervention. His is at bedside who also helps elicit history. Patient's external chart was reviewed. Most of his care is provided through the [facility]. patient was hemodynamically stable in ED. He was hypoxic on arrival with oxygen saturations 88%. He is currently on 2 L of oxygen via nasal cannula. His CBC and CMP is generally unremarkable except for mild hypokalemia 3.4. His CT scan and urinalysis from 325 was independently interpreted and reviewed. Urine culture is currently pending. Allergies Allergy/AdvReac Type Severity Reaction Status Date / Time No Known Allergies Allergy Unknown Verified 12/08/24 10:56 Home Medications Medication Instructions Recorded Confirmed Type albuterol sulfate 2.5 mg/3 mL 2.5 mg (3 mL) inhalation Q8H PRN 07/30/24 12/08/24 Rx (0.083 %) solution for nebulization bronchospasm #75 mL epinephrine 0.3 mg/0.3 mL 0.3 mg IM Q15M PRN Allergy Symptoms 11/30/24 12/08/24 History injection, auto-injector (EpiPen) atorvastatin 10 mg tablet (Lipitor) 10 mg PO DAILY 12/06/24 12/08/24 History cholecalciferol (vitamin D3) 250 250 mcg PO DAILY 12/06/24 12/08/24 History mcg (10,000 unit) capsule fluticasone 100 mcg-salmeterol 50 1 inh inhalation BID 12/06/24 12/08/24 History mcg/dose blistr powdr for inhalation (Bailey Inhub) ciprofloxacin HCl 500 mg tablet 500 mg PO BID #14 tabs 12/07/24 12/08/24 Rx ondansetron 4 mg disintegrating 4 mg PO Q8H 5 days #15 tabs 12/07/24 12/08/24 Rx tablet tamsulosin 0.4 mg capsule (Flomax) 0.4 mg PO DAILY #10 caps 12/07/24 12/08/24 Rx Past Med/Surg History Problem List Acute right flank pain (Acute) Hypoxia (Acute) Calculus of distal right ureter (Acute) Kidney stones (Acute) Nephrolithiasis Idiopathic anaphylaxis Pruritus Acute exacerbation of chronic obstructive pulmonary disease (COPD) (Acute) Hypoxia (Acute) Acute hypoxemic respiratory failure Tobacco abuse (Acute) Leukocytosis (Acute) Tobacco abuse (Chronic) Lung nodule (Chronic) Medical History HLD (hyperlipidemia) COPD (chronic obstructive pulmonary disease) Facial cellulitis Abscess, dental Preseptal cellulitis History of kidney stones Surgical History Hx of oral surgery (03/08/24) p Right Upper Facial Abscess Incision and Drainage(Right) - Izaiah Mckinley DMD s Extraction x10(Bilateral) - Izaiah Mckinley DMD History of lithotripsy Family History Other Cancer Heart disease Social History Smoking Status: Current every day smoker Tobacco Type: Cigarettes Cigarettes Per Day: 1/2 pack; Hx Alcohol Use: Yes Alcohol type: beer Hx Substance Use: No Preferred Language: Sudanese Communication Ability: Effective Visual Impairment: No Limitations Vp Respiratory Required: No Beliefs That Will Affect Care: None marital status: Single Current Living Situation: Spouse and Family Current Living Situation Comment: , son, and daughter in law current occupational status: employed Other Information That Helps Us Care for You: No Feels Safe at Home: Yes Safety Concerns: Feels Safe At This Time Assistive Devices: Glasses Review of Systems Review of Systems: All systems reviewed & are unremarkable except as noted in HPI & below Physical Exam Physical Exam: Constitutional: WD/WN, vitals as above, NAD, appears in pain, nontoxic appearing, sitting up in bed, pleasant, conversing easily Head: Normocephalic, Atraumatic Eyes: PERRL, conjunctivae normal, anicteric sclerae ENMT: external ear and nose normal, oropharynx normal Neck: trachea midline, no thyromegaly normal visual inspection Respiratory: normal respiratory effort, lungs clear to auscultation, mild exp wheezing b/l, no rales, rhonchi. Normal insp/exp effort, no accessory muscle use Cardiovascular: RRR, no murmur, no edema Vessels: no JVD or carotid bruit Chest: normal inspection of chest Abdomen: normal bowel sounds, soft, TTP RLQ, no guarding or rigidity, no hepatosplenomegaly Musculoskeletal: no cyanosis or clubbing, extremities motor strength 5/5 Skin: no rashes, warm and dry normal turgor Neurologic: no face palsy, no dysarthria CN's II-XI intact bilaterally and moves all extremities Psychiatric: A+Ox3, euthymic affect Results & Data Results & Data Vital Signs (Past 12 Hours) Vital Signs Temp Pulse Pulse Resp BP BP Pulse Ox 12/08/24 06:46 75 18 95 12/08/24 06:45 81 18 88 L 12/08/24 06:26 72 12/08/24 06:26 36.5 C 67 19 133/82 88 L 12/08/24 06:12 36.5 C 80 17 141/76 H 92 O2 Del Method O2 Flow Rate 12/08/24 06:46 Nasal Cannula 2 12/08/24 06:45 Room Air 12/08/24 06:26 12/08/24 06:26 Room Air 12/08/24 06:12 Room Air Laboratory Results I have independently reviewed and interpreted patient's admitting labs including CBC, CMP Diagnostic Findings Chest X-Ray 12/08/24 06:39 EXAM: XR chest 1V portable CLINICAL HISTORY: cough TECHNIQUE: X-ray image of the chest is obtained in AP portable projection. COMPARISON: 07/29/2024 FINDINGS: Pulmonary Parenchyma: Stable left lung basilar atelectatic plates. Stable right lung middle zone nodular opacity measuring 1.2 cm likely an old granuloma. Stable mild vascular congestion. No focal consolidation. No pleural effusion. No pneumothorax. Heart and Mediastinum: Heart size and shape are normal. No mediastinal widening or masses. Prominent hilar shadows. Bony Thorax: Mild degenerative changes of the visualized skeleton. Soft Tissues: Soft tissues overlying the chest wall are unremarkable. IMPRESSION: 1. No acute cardiopulmonary disease process. 2. No significant interval changes. 3. Stable left lung basilar atelectatic plates. 4. Stable right lung middle zone nodular opacity measuring 1.2 cm likely an old granuloma. 5. Stable mild vascular congestion. Electronically signed by Dennis Hope 12-08-2024 07:51 AM KUB X-Ray 12/08/24 06:39 EXAM: XR KUB/Abdomen 1 view CLINICAL HISTORY: Right flank pain. TECHNIQUE: X-ray image of the abdomen was obtained in AP position. COMPARISON: 12/07/2024 CT. FINDINGS: Gas Pattern: Gas pattern within the abdomen is normal. No evidence of bowel obstruction or distention. Soft Tissues: Right pelvic 2.8mm small radiopaque shadow. Suprapubic calcification noted likely prostatic concretions. Soft tissues of the abdomen appear normal without evidence of masses. Liver, spleen, and kidneys are of normal size and position. IMPRESSION: 1. Right pelvic 2.8mm small radiopaque shadow possibly corresponding to the previously noted lower ureteric calculus. 2. Suprapubic calcification noted, likely prostatic concretions. 3. No interval changes. Electronically signed by Dennis Hope 12-08-2024 07:55 AM Medications Administered Medication List Morphine Sulfate (Morphine Sulfate 4 Mg/Ml 1 Ml Carp\Vial) 4 mg IV Q15M PRN PRN Reason: Pain Stop: 12/22/24 06:25 Last Admin: 12/08/24 08:12 Dose: 4 mg Documented By: Admin: 12/08/24 06:42 Dose: 4 mg Documented By: MARYW Discontinued Medications Albuterol (Albut/Ipratrop 3mg/0.5mg Neb 3 Ml Vial) 3 ml NEB NOW STA; Protocol Stop: 12/08/24 06:40 Last Admin: 12/08/24 08:47 Dose: Not Given Documented By: CALLIE Sodium Chloride (Nss) 1,000 mls @ 999 mls/hr IV .Q1H1M ONE Stop: 12/08/24 07:26 Last Infusion: 12/08/24 07:36 Dose: Infused Documented By: Admin: 12/08/24 06:42 Dose: 999 mls/hr Documented By: GLORIA Potassium Chloride (K Mir / Wtr) 10 meq in 100 mls @ 100 mls/hr IV Q1H TODD Stop: 12/08/24 10:44 Last Admin: 12/08/24 09:05 Dose: Not Given Documented By: SRL Ondansetron HCl (Ondansetron Inj 2 Mg/Ml 2 Ml Vial) 4 mg IV NOW STA Stop: 12/08/24 06:27 Last Admin: 12/08/24 06:42 Dose: 4 mg Documented By: GLORIA COVID-19 Results Results COVID-19 Adm Lab Results: RBC 4.34 M/uL (4.70-6.10) L 12/08/24 WBC 9.24 K/ul (4.8-10.8) 12/08/24 Hgb 12.8 g/dl (14.0-18.0) L 12/08/24 Hct 38.4 % (42.0-52.0) L 12/08/24 Plt Count 264 K/uL (130-400) 12/08/24 Neutrophils (%) (Auto) 71.9 % 12/08/24 Lymphocytes (%) (Auto) 16.2 % 12/08/24 Monocytes # (Auto) 0.78 K/uL (0.11-0.59) H 12/08/24 Eosinophils # (Auto) 0.26 K/uL (0.00-0.50) 12/08/24 Immature Granulocyte % (Auto) 0.4 % 12/08/24 Neutrophils # (Auto) 6.63 K/uL (1.40-6.50) H 12/08/24 Lymphocytes # (Auto) 1.50 K/uL (1.20-3.40) 12/08/24 Monocytes # (Auto) 0.78 K/uL (0.11-0.59) H 12/08/24 Eosinophils # (Auto) 0.26 K/uL (0.00-0.50) 12/08/24 Basophils # (Auto) 0.03 K/uL (0.00-0.20) 12/08/24 Immature Granulocyte # (Auto) 0.04 K/uL (0.01-0.20) 5 Na 137 mmol/L (136-145) 12/08/24 K 3.4 mmol/L (3.5-5.1) L 12/08/24 Cl 105 mmol/L (98-107) 12/08/24 CO2 28 mmol/L (21-32) 12/08/24 Anion Gap 4 (3-11) 12/08/24 BUN 10 mg/dl (6-23) 12/08/24 Creatinine 0.94 mg/dl (0.6-1.4) 12/08/24 BUN/Creatinine Ratio 10.6 (10-20) 12/08/24 Glucose Level 136 mg/dl (70-99(Fasting)) H 12/08/24 Ca 8.2 mg/dl (8.6-10.3) L 12/08/24 Total Bilirubin 0.7 mg/dl (0.2-1.0) 12/08/24 AST/SGOT 13 U/L (13-39) 12/08/24 ALT/SGPT 9 U/L (7-52) 12/08/24 Alkaline Phosphatase 67 U/L (34-104) 12/08/24 Total Protein 6.1 gm/dl (6.0-8.3) 12/08/24 Albumin 3.8 gm/dl (3.4-5.0) 12/08/24 Globulin 2.3 gm/dl (2.5-4.0) L 12/08/24 Albumin/Globulin Ratio 1.7 (0.9-2) 12/08/24 Chest X-Ray 12/08/24 Code Status & VTE Plan Code Status FULL CODE VTE Prophylaxis Plan VTE Prophylaxis will be ordered: Yes Supervising Physician Co-Signing Physician Notes I have seen and discussed the case with the collaborating advanced practitioner. I agree with the above H&P. I have reviewed and confirmed the patients medical history, the findings on physical examination, and the patients diagnosis and treatment plan with Miguel FOWLER and agree with the information documented. In short, Mr. Alvarez is a 64 yo gentleman evaluated after right stent placement and stone removal. Patient was pain free at time of exam and had not urinated postoperatively. Exam notable for pleasant gentleman without acute symptoms. RRR, CTAB. Moving all extremities appropriately #Right nephrolithiasis s/p stent and lithotripsy Continue CTX, follow up cultures I spent a total of 25 minutes coordinating, documenting, and providing care for this patient excluding time spent in the performance of separately billed services. All of the aforementioned completed outside of collaborating with the assigned advanced practitioner for a full treatment plan. I have reviewed the advanced practitioner's documentation, and I agree with, and take responsibility for the plan of care
--- NOTE | 2024-12-08 09:57 | Urology Consultation ---
Date of Consultation December 08, 2024 Assessment & Plan (1) Acute right flank pain: (2) Calculus of distal right ureter: Plan 64 yo/M admitted with acute right flank pain secondary to distal right ureteral calculus. Patient afebrile, hemodynamically stable Labs reviewedcreatinine 0.94, WBC 9.24 Urinalysis 12/07 was negative for bacteria, urine culture pending Patient continues to have moderate to severe right flank pain, failed outpatient management Discussed options for stone management including surgical intervention with right ureteral stent and possible stone removal vs trial of passage He would like to proceed with procedure today Proceed to OR for cystoscopy, right ureteral stent placement, possible stone extraction/treatment Risk and benefits of procedure to be reviewed with patient by Dr. Sim Keep NPO for procedure He received Ceftriaxone in ED Continue supportive care medical management per hospital medicine service Supervising Physician Co-Signing Physician Notes Discussed patient with ALICIA. Agree with plan. To OR for cystoscopy, right stent, possible stone treatment History of Present Illness Reason for Consultation: kidney stone, uncontrolled pain Requesting Physician: Dr. Escobar Attending Physician: Dr. Escobar History of Present Illness This is a 64-year-old male with a right-sided obstructing ureteral stone. Patient initially presented to the emergency department on 12/07/[address] scan was performed. CT showed a 4.5 x 2.5 mm right distal ureteral calculus approximately 1.5 cm from UVJ, mild hydroureteronephrosis. Labs showed WBC 9.11, hemoglobin 13.5, creatinine 1.13. Urinalysis showed 3+ blood, 1+ LE, 11- 20 WBC, >20 RBC, 6-10 epithelials, negative for bacteria. He was discharged from the ED with tamsulosin, ondansetron and course of ciprofloxacin. He returned to the ED today with worsening right flank pain, nausea and vomiting. Labs showed WBC 9.24, hemoglobin 12.8, creatinine 0.94, potassium 3.4. Urine culture from 12/07 is pending. KUB imaging showed approximately 3 mm right pelvic calculus likely corresponding to right ureteral calculus. He was admitted to the hospital medicine service for further management. Urology is consulted for right ureteral stone. Last ate yesterday afternoon. He was afebrile and hemodynamically stable in the ED. Patient seen and examined in ED. at bedside. He continues to have right flank pain radiating to his abdomen, currently rated as 8 out of 10. Nausea and vomiting prior to arrival, now resolved. No fever or chills. Voiding spontaneously, no dysuria or hematuria. Previous history of kidney stones. Prior spontaneous passage. Reports history of ureteroscopy and stone treatment approximately 5 to 6 years ago. Allergies Allergy/AdvReac Type Severity Reaction Status Date / Time No Known Allergies Allergy Unknown Verified 12/08/24 10:56 Home Medications Medication Instructions Recorded Confirmed Type albuterol sulfate 2.5 mg/3 mL 2.5 mg (3 mL) inhalation Q8H PRN 07/30/24 12/08/24 Rx (0.083 %) solution for nebulization bronchospasm #75 mL epinephrine 0.3 mg/0.3 mL 0.3 mg IM Q15M PRN Allergy Symptoms 11/30/24 12/08/24 History injection, auto-injector (EpiPen) atorvastatin 10 mg tablet (Lipitor) 10 mg PO DAILY 12/06/24 12/08/24 History cholecalciferol (vitamin D3) 250 250 mcg PO DAILY 12/06/24 12/08/24 History mcg (10,000 unit) capsule fluticasone 100 mcg-salmeterol 50 1 inh inhalation BID 12/06/24 12/08/24 History mcg/dose blistr powdr for inhalation (Wixela Inhub) ciprofloxacin HCl 500 mg tablet 500 mg PO BID #14 tabs 12/07/24 12/08/24 Rx ondansetron 4 mg disintegrating 4 mg PO Q8H 5 days #15 tabs 12/07/24 12/08/24 Rx tablet tamsulosin 0.4 mg capsule (Flomax) 0.4 mg PO DAILY #10 caps 12/07/24 12/08/24 Rx Patient History Medical History HLD (hyperlipidemia) COPD (chronic obstructive pulmonary disease) Facial cellulitis Abscess, dental Preseptal cellulitis History of kidney stones Surgical History Hx of oral surgery (03/08/24) p Right Upper Facial Abscess Incision and Drainage(Right) - Izaiah Mckinley DMD s Extraction x10(Bilateral) - Izaiah Mckinley DMD History of lithotripsy Family History Other Cancer Heart disease Social History Smoking Status: Never smoker Tobacco Type: Cigarettes Cigarettes Per Day: 1/2 pack; Hx Alcohol Use: Yes Alcohol type: beer Hx Substance Use: No Preferred Language: Cambodian Communication Ability: Effective Visual Impairment: No Limitations 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 Beliefs That Will Affect Care: None marital status: Single Current Living Situation: Spouse and Family Current Living Situation Comment: , son, and daughter in law current occupational status: employed Feels Safe at Home: Yes Assistive Devices: None Review of Systems Review of Systems: All systems reviewed & are unremarkable except as noted in HPI & below Physical Exam Constitutional: well developed and well nourished; no acute distress Respiratory: no respiratory distress and no labored breathing supplemental oxygen Gastrointestinal (Abdomen): Inspection/Auscultation: abdomen normal to inspection Musculoskeletal: Head/Neck/Chest: normocephalic Neurologic: moves all extremities and awake Psychiatric: Orientation: alert and oriented x 3 Results & Data Vital Signs (Past 12 Hours) Vital Signs Temp Pulse Pulse Resp BP BP Pulse Ox 12/08/24 09:00 63 17 131/77 98 12/08/24 06:46 75 18 95 12/08/24 06:45 81 18 88 L 12/08/24 06:26 72 12/08/24 06:26 36.5 C 67 19 133/82 88 L 12/08/24 06:12 36.5 C 80 17 141/76 H 92 O2 Del Method O2 Flow Rate 12/08/24 09:00 Nasal Cannula 2 12/08/24 06:46 Nasal Cannula 2 12/08/24 06:45 Room Air 12/08/24 06:26 12/08/24 06:26 Room Air 12/08/24 06:12 Room Air PG Care Time/CCT Total # of Minutes Spent Total Time Spent with Patient: Total time spent is greater than 50% in coordination of care (as documented) at patient's floor/unit and/or counseling patient: Coding Level of Care Code 10447 INT INP/OBS CARE 2/55MIN Diagnoses Acute right flank pain R10.9 Calculus of distal right ureter N20.1
[2024-12-08] MEDS ORDERED: DEXAMETHASONE SOD INJ 4 MG/ML VIAL ONE (11:07)
[2024-12-08] MEDS ORDERED: ONDANSETRON INJ 2 MG/ML 2 ML VIAL ONE (11:07)
[2024-12-08] MEDS ORDERED: LIDOCAINE 2% 2 ML VIAL/AMP(20MG/ML) INFIL ONE (11:07)
[2024-12-08] MEDS ORDERED: PROPOFOL IV EMULSION 10 MG/ML 20 ML VIAL IV ONE (11:07)
[2024-12-08] MEDS ORDERED: fentaNYL citrate PF 100 MCG/2 ML VIAL ONE (11:08)
[2024-12-08] MEDS ORDERED: MIDAZOLAM HCL 1 MG/ML 2ML VIAL ONE (11:08)
--- NOTE | 2024-12-08 11:11 | Anesthesiology Consultation ---
Date of Service December 08, 2024 Assessment & Plan Chart Review Chart Review: Acceptable Risk for Surgery and Patient NOT seen in Pre Admission Testing Consults Requested none History Surgery Operation Date: 12/08/24 08:30 Proposed Procedures p Cystoscopy, Right Ureteral Stent Placement, Possible Stone Treatment - Jeramy Sim MD Height/Weight Height: 5 ft 11 in Weight: 109.7 kg Allergies Allergy/AdvReac Type Severity Reaction Status Date / Time No Known Allergies Allergy Unknown Verified 12/08/24 10:56 Medications Home Medications Medication Instructions Recorded Confirmed Last Taken albuterol sulfate 2.5 mg/3 mL 2.5 mg (3 mL) inhalation Q8H PRN 07/30/24 12/08/24 Unknown (0.083 %) solution for nebulization bronchospasm #75 mL epinephrine 0.3 mg/0.3 mL 0.3 mg IM Q15M PRN Allergy Symptoms 11/30/24 12/08/24 Unknown injection, auto-injector (EpiPen) atorvastatin 10 mg tablet (Lipitor) 10 mg PO DAILY 12/06/24 12/08/24 Unknown cholecalciferol (vitamin D3) 250 250 mcg PO DAILY 12/06/24 12/08/24 Unknown mcg (10,000 unit) capsule fluticasone 100 mcg-salmeterol 50 1 inh inhalation BID 12/06/24 12/08/24 Unknown mcg/dose blistr powdr for inhalation (Wixela Inhub) ciprofloxacin HCl 500 mg tablet 500 mg PO BID #14 tabs 12/07/24 12/08/24 Unknown ondansetron 4 mg disintegrating 4 mg PO Q8H 5 days #15 tabs 12/07/24 12/08/24 Unknown tablet tamsulosin 0.4 mg capsule (Flomax) 0.4 mg PO DAILY #10 caps 12/07/24 12/08/24 Unknown Active Medications Generic Name Dose Route Start Last Admin Trade Name Freq PRN Reason Stop Dose Admin Sodium Chloride 1,000 mls @ 150 mls/hr 12/08/24 09:00 12/08/24 09:23 Nss IV 12/09/24 11:39 150 mls/hr .Q6H40M TODD Administration Ketorolac Tromethamine 15 mg 12/08/24 09:00 12/08/24 09:22 Ketorolac Tromethamine 15 Mg/Ml Vial IV 12/13/24 08:59 15 mg Q6H PRN Administration Mild Pain (Scale 1, 2, 3) Morphine Sulfate 4 mg 12/08/24 06:26 12/08/24 08:12 Morphine Sulfate 4 Mg/Ml 1 Ml Carp\Vial IV 12/22/24 06:25 4 mg Q15M PRN Administration Pain NPO Date Last Intake of Fluids: 12/07/24 Time Last Intake of Fluids: 18:00 Date Last Intake of Solids: 12/07/24 Time Last Intake of Solids: 04:00 Last Intake of Solids Comment: water this am Past Medical History Medical History HLD (hyperlipidemia) COPD (chronic obstructive pulmonary disease) Facial cellulitis Abscess, dental Preseptal cellulitis History of kidney stones Past Family History Family History Other Cancer Heart disease Past Surgical History Surgical History Hx of oral surgery (03/08/24) p Right Upper Facial Abscess Incision and Drainage(Right) - Izaiah Mckinley DMD s Extraction x10(Bilateral) - Izaiah Mckinley DMD History of lithotripsy Social History Smoking Status: Never smoker Smoking cigarettes per day: 1/2 pack Hx Alcohol Use: Yes Alcohol type: beer alcohol intake frequency: a few times a month Hx Substance Use: No Physical Exam Vital Signs Last Vital Signs Temp 36.4 C L 12/08/24 11:03 Pulse 67 12/08/24 11:03 Resp 18 12/08/24 11:03 BP 156/91 H 12/08/24 11:03 Pulse Ox 97 12/08/24 11:03 O2 Del Method Room Air 12/08/24 11:03 O2 Flow Rate 2 12/08/24 09:00 Testing Laboratory Results 12/08/24 06:36 12/08/24 06:36 Electrocardiogram Date: 07/29/24 Findings: + NSR @ and + RBBB
[2024-12-08] MEDS ORDERED: ONDANSETRON INJ 2 MG/ML 2 ML VIAL IV PRN ×2 (12:01→14:23)
[2024-12-08] MEDS ORDERED: fentaNYL citrate PF 100 MCG/2 ML VIAL IV PRN (12:01)
[2024-12-08] MEDS ORDERED: ATROPINE SULFATE 0.1 MG/ML 10ML SYR IV PRN (12:01)
[2024-12-08] MEDS ORDERED: ePHEDrine sulfate 50 MG/ML AMP IV PRN (12:01)
[2024-12-08] MEDS ORDERED: ePHEDrine sulfate 50 MG/5 ML SYR ONE (12:26)
[2024-12-08] MEDS ORDERED: ALBUTEROL HFA 8 GM INHALER INH ONE (12:32)
[2024-12-08] MEDS: DIATRIZOATE MEGLUMINE 30% 100ML VIAL INSTIL PRN (12:53)
--- NOTE | 2024-12-08 13:03 | Operative Report ---
PG Post Operative Report Pre & Post Diagnosis Operation Date: 12/08/24 08:30 Pre-Op Diagnosis: (1) Acute right flank pain (2) Calculus of distal right ureter Post-Op Diagnosis: (1) Acute right flank pain (2) Calculus of distal right ureter I identified the patient and participated in the time-out.: Yes Procedure Operation Date: 12/08/24 08:30 Actual Procedures p Cystoscopy, right retrograde pyelogram with radiographic interpretation, laser lithotripsy, basket stone extraction, right stent placement (Right) - Jeramy Sim MD Surgeon Jeramy Sim MD Tree Driller [place], [place] 2 Estimated Blood Loss 0 Findings See Below Stone in distal ureter lasered and basketed out. Retrograde showed no extravasation. Stent in appropriate position Specimens Right ureteral calculus Drains 6 [place] by 26 cm right ureteral stent Anesthesia Type General Complications none Indications 64-year-old male with a right distal ureteral calculus Description of Procedure After informed consent was obtained, the patient was transported to the operative suite. General anesthesia was induced. They were placed in dorsal lithotomy position and prepped and draped in sterile fashion. They received preoperative Rocephin. An appropriate surgical timeout was performed. Rigid cystoscope was note inserted per urethra to the bladder. Sensor wire was advanced into the right ureter and confirmed in the kidney. Cystoscope was removed. Advanced a semirigid ureteroscope in the distal ureter encountered the stone. A 200 m thulium laser fiber was inserted and the stone was fragmented to smaller pieces. A 0 tip nitinol basket was used to remove these and drop them in the bladder. Remainder of ureter was free of stones. Retrograde pyelogram was shot which showed no extravasation. CT scan had shown no other stones. Semirigid ureteroscope was removed. Backloaded the cystoscope over the wire and deployed a 6 [place] by 26 cm right ureteral stent with a good proximal coil in the kidney confirmed fluoroscopically and a good distal coil in the bladder confirmed under direct visualization. Stones were evacuated out and bladder was emptied. Scope was removed. This concluded the end of the case. All counts correct at the end the case. I was present scrubbed and actively participated for the entirety of the procedure I attest to the content of the Intraoperative Record and any orders documented therein. Any exceptions are noted below.
--- NOTE | 2024-12-08 14:17 | Fluoroscopy Report ---
FL retrograde includes kub CLINICAL HISTORY: RT STENT COMPARISON STUDY: None FLUOROSCOPY TIME: 9 seconds FLUOROSCOPY IMAGES: 2 EXPOSURE DOSE: 3.4 mGy FINDINGS: Fluoroscopy was provided for right ureteral stent. IMPRESSION: Intraoperative fluoroscopy. ACT 112: Negative or not required by law. Electronically signed by: George Mack M.D. 12/08/2024 2:16 PM
--- NOTE | 2024-12-08 14:17 | Anesthesiology Progress Note ---
Date of Service December 08, 2024 Anesthesia Post Procedure Vital Signs Vital Signs: Temp Pulse Pulse Pulse Resp BP BP 12/08/24 13:50 63 9 L 150/90 H 12/08/24 13:40 36.4 C L 59 L 12 136/84 12/08/24 13:30 61 12 130/77 12/08/24 13:20 62 7 L 129/73 12/08/24 13:13 36.0 C L 66 15 97/74 L 12/08/24 11:56 56 L 14 12/08/24 11:03 36.4 C L 67 18 156/91 H 12/08/24 10:34 59 L 12/08/24 09:00 63 17 131/77 12/08/24 06:46 75 18 12/08/24 06:45 81 18 12/08/24 06:26 72 12/08/24 06:26 36.5 C 67 19 133/82 12/08/24 06:12 36.5 C 80 17 141/76 H Pulse Ox O2 Del Method O2 Flow Rate FiO2 12/08/24 13:50 95 Room Air 12/08/24 13:40 100 Room Air 12/08/24 13:30 100 Oxymask 7 12/08/24 13:20 97 Oxymask 7 12/08/24 13:13 95 Oxymask 7 12/08/24 11:56 94 Room Air 21 12/08/24 11:03 97 Room Air 12/08/24 10:34 12/08/24 09:00 98 Nasal Cannula 2 12/08/24 06:46 95 Nasal Cannula 2 12/08/24 06:45 88 L Room Air 12/08/24 06:26 12/08/24 06:26 88 L Room Air 12/08/24 06:12 92 Room Air Pain Intensity Right Flank: Pain Intensity: 4 Transfer of Care Handoff Completed per policy Notes Mental Status: alert / awake / arousable Patient Amnestic to Procedure: Yes Nausea / Vomiting: adequately controlled Pain: adequately controlled Airway Patency, RR, SpO2: stable & adequate BP & HR: stable & adequate Hydration State: stable & adequate Anesthetic Complications: no major complications apparent and Pt Satisfied with anesthetic care
[2024-12-08] MEDS ORDERED: POLYETHYLENE (MIRALAX) 17 GM PACK PO PRN (14:23)
[2024-12-08] MEDS ORDERED: oxyCODONE HCL IR 5 MG TAB (IMMEDIATE RELEASE) PO PRN (14:23)
[2024-12-08] MEDS ORDERED: FAMOTIDINE 20 MG TAB PO PRN (14:23)
[2024-12-08] MEDS ORDERED: HYDROmorphone INJ 0.5 MG/0.5 ML SYR IV PRN (14:23)
[2024-12-08] MEDS ORDERED: ACETAMINOPHEN 325 MG TAB PO PRN (14:23)
[2024-12-08] MEDS: ALBUT/IPRATROP 3MG/0.5MG NEB 3 ML VIAL NEB SCH (15:01)
[2024-12-08] MEDS: ENOXAPARIN INJ 40 MG/0.4 ML SYR SQ SCH (20:39)
[2024-12-08] MEDS: DOCUSATE SODIUM/SENNA 50/8.6MG TAB PO SCH (20:39)
[2024-12-08] MEDS ORDERED: MELATONIN 3 MG TAB PO PRN (21:00)
[2024-12-09 03:51] VITALS: TEMP 97.7
[2024-12-09 07:16] LABS: Basophils # (auto) 0.01 K/uL (0.00-0.20); Basophils % (auto) 0.1 %; Hematocrit (blood only) 33.7 % (42.0-52.0); Hemoglobin 11.3 g/dl (14.0-18.0); Immature Granulocytes # (auto) 0.04 K/uL (0.01-0.20); Immature Granulocytes % (auto) 0.5 %; Lymphocytes # (auto) 0.96 K/uL (1.20-3.40); Lymphocytes % (auto) 12.4 %; Mean Corpuscular Hemoglobin 29.9 pg (25.0-34.0); Mean Corpuscular Hgb Conc 33.5 g/dL (32.0-36.0); Mean Corpuscular Volume 89.2 fL (80.0-100.0); Mean Platelet Volume 10.5 fL (9.4-12.4); Monocytes # (auto) 0.53 K/uL (0.11-0.59); Monocytes % (auto) 6.8 %; Neutrophils # (auto) 6.21 K/uL (1.40-6.50); Neutrophils % (auto) 80.2 %; Platelet Count 219 K/uL (130-400); RDW Coefficient of Variation 13.6 % (11.5-14.5); RDW Standard Deviation 44.9 fL (36.4-46.3); Red Blood Count 3.78 M/uL (4.70-6.10); White Blood Count 7.75 K/ul (4.8-10.8)
[2024-12-09 07:43] LABS: BUN Creatinine Ratio 10.2 (10-20); Calcium 8.1 mg/dl (8.6-10.3); Creatinine Clr Calc Pharmacy 94.7 ml/min; Magnesium 1.9 mg/dl (1.7-2.4); Potassium 4.7 mmol/L (3.5-5.1)
[2024-12-09 07:50] VITALS: BP 123/79
[2024-12-09] MEDS: CHOLECALCIFEROL 125 MCG (5,000 UNITS) TAB PO SCH (08:04)
[2024-12-09] MEDS: TAMSULOSIN HCL 0.4 MG CAP PO SCH (08:04)
[2024-12-09] MEDS: ATORVASTATIN 10 MG TAB PO SCH (08:04)
[2024-12-09] MEDS: FLUTICASONE/VILANTEROL 100/25MCG 14 PUFFS/INHALER INH SCH (08:08)
[2024-12-09 09:32] LABS: Appearance Urine Clear (Clear); Bacteria Urine Automated None Seen (None Seen); Bilirubin Urine Negative (Negative); Blood Urine 3+ (Negative); Cast Urine Automated 0-2 /lpf (0-2); Color Urine Yellow; Epithelial Cell Urine Auto 0-2 /hpf (0-2); Glucose Urine UA Negative (Negative); Ketones Urine Negative (Negative); Leukocyte Esterase Urine Trace (Negative); Nitrite Urine Negative (Negative); Protein Urine Trace (Negative); RBC Urine Automated >20 /hpf (0-2); Specific Gravity Urine 1.006 (1.000-1.030); Urobilinogen Urine Negative (Negative); pH Urine 5.5 (4.5-7.5)
[2024-12-09] MEDS: cefTRIAXone SODIUM 2,000 MG/50 ML BAG IV SCH (09:37)
--- NOTE | 2024-12-09 11:12 | Urology Progress Note ---
Date of Service December 09, 2024 Assessment & Plan (1) Calculus of distal right ureter: (2) Acute right flank pain: Plan: - Pt POD#1 s/p cystoscopy, right ureteral stent placement and stone treatment - Doing well, progressing as expected - Afebrile, vitals stable - Lab work reviewed - creatinine 0.98, WBC 7.75 - Tolerating right ureteral stent with minimal bother - Okay to d/c from perspective when medically stable - Recommend d/c with Tamsulosin, prn Pyridium and prn pain medication for stent management - Expected clinical course reviewed, all questions answered - Will arrange outpatient follow-up with our service for cysto/stent removal - will sign off, recall as needed Admission and Anticipated Discharge Date Admission Date: December 08, 2024 Subjective Patient seen and examined at bedside this morning. He is awake and resting in bed. Reports he is feeling much better today. Reports occasional right flank discomfort. Voiding spontaneously, urine clearing. No fever or chills. Review of Systems Constitutional: as per Subjective / HPI Genitourinary: + as per Subjective / HPI Physical Exam Constitutional: well developed and well nourished; no acute distress Respiratory: normal respiratory effort; no respiratory distress and no labored breathing Gastrointestinal (Abdomen): Inspection/Auscultation: abdomen normal to inspection Musculoskeletal: Head/Neck/Chest: normocephalic Neurologic: moves all extremities and awake Psychiatric: Orientation: alert and oriented x 3 Results & Data Vital Signs (Past 12 Hours) Vital Signs Temp Pulse Resp BP Pulse Ox O2 Del Method 12/09/24 08:10 Room Air 12/09/24 07:31 71 18 95 Room Air 12/09/24 07:06 36.5 C 68 16 123/79 96 Room Air 12/09/24 03:50 36.5 C 72 16 132/82 96 Room Air PG Care Time/CCT Total # of Minutes Spent Total Time Spent with Patient: Total time spent is greater than 50% in coordination of care (as documented) at patient's floor/unit and/or counseling patient: Coding Level of Care Code 77905 SUB INP/OBS CARE 2/35MIN Diagnoses Calculus of distal right ureter N20.1 Acute right flank pain R10.9
[2024-12-09 12:40] VITALS: PULSE 88; RESP 16; O2SAT 96
--- NOTE | 2024-12-09 17:06 | Discharge Summary ---
Discharge Summary Date of Service December 09, 2024 Principal Dx & Hospital Course #1 = Principal Diagnosis (1) Calculus of distal right ureter: (2) Hypoxia: (3) COPD (chronic obstructive pulmonary disease): (4) HLD (hyperlipidemia): Plan This is a 64-year-old male who has a significant past medical history of COPD and hyperlipidemia who presents to ED secondary to right lower quadrant abdominal pain x [address] A/P from 12/07: 4.5x2.5mm at vesicoureteric junction KUB from 12/08 2.8mm R pelvic Shadow Labs unremarkable, UA from 12/07 is pending culture #Calculus of distal right ureter admit to medical consult urology Keep NPO until seen by urology pt with uncontrolled pain despite medications IV toradol for mild pain, oral Oxy IR for moderate and IV dilaudid for severe pain continue flomax, strain urine IVF NSS 150cc/hr Empiric IV ceftriaxone, await urine culture, pt was started on oral cipro on 12/07 a.m. and had 1 dose thus far #Hypoxia #COPD possible narcotic induce, no acute exacerbation CXR w/o acute abnormality pt with mild wheezing on exam but no increase cough or production duonebs TID and prn, continue maintenance inhaler wean o2 as able, Titrate to keep oxygen at or around 90% #HLD: chronic, stable continue statin #DVT ppx: SQ Lovenox FULL CODE PCP: Leigh Velarde, [place] services Dispo: admit to medical Pt was seen and examined in collaboration with Dr. Escobar, please see addendum I spent a total of 50 minutes coordinating, documenting and providing care for this patient excluding time spent in the performance of separately billed services or time spent by another provider/QHP. Notes For Next Care Provider This is a 64-year-old male who has a significant past medical history of COPD and hyperlipidemia who presents to ED secondary to right lower quadrant abdominal pain x 24 hours. Found to have renal stone, taken to OR for stent placement. Pain improved significantly post op, per urology and medicine stable for discharge home. Medication Changes From Visit -cipro x5 days, pyridium prn, tamulosin daily Admission HPI Per Admitting Provider This is a 64-year-old male who has a significant past medical history of COPD and hyperlipidemia who presents to ED secondary to right lower quadrant abdomi nal pain x 24 hours. Of significance patient presented to the ED in early hours on 12/07 when he developed an acute onset of right lower quadrant pain while at work. CT scan of abdomen pelvis revealed a 4.5 x 2.5 mm right lower ureteral stone. He was seen and evaluated by urology and was discharged home with oral oxycodone, Zofran, oral Cipro and Flomax. He took 1 dose of the antibiotic thus far. He states he has been pushing fluids, but unable to eat or drink much due to nausea. On way to the hospital he did have an episode of vomiting. He last took an oxycodone at approximately 4 AM. 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 He denies any fever, chills, sweats, lightheadedness, dizziness, chest pain, shortness of breath, dysuria, hematuria, melena or hematochezia. He does admit to a chronic dry cough in the setting of his COPD. He feels his cough is unchanged and denies any productivity. He also reports a change in his urine stream. He has prior history of kidney stones in the past in which 1 required intervention. His is at bedside who also helps elicit history. Patient's external chart was reviewed. [facility] patient was hemodynamically stable in ED. He was hypoxic on arrival with oxygen saturations 88%. He is currently on 2 L of oxygen via nasal cannula. His CBC and CMP is generally unremarkable except for mild hypokalemia 3.4. His CT scan and urinalysis from 325 was independently interpreted and reviewed. Urine culture is currently pending. Discharge Exam Gen: A&O 3 NAD HEENT: NCAT, EOMI, not icteric. External ears normal. No rhinorrhea. Moist mucous membranes. Neck: Supple, full range of motion, no observable masses, No meningeal sign. Lungs: No Respiratory distress. CV: RRR, no edema. Abdomen: Soft, nondistended, No rebound tenderness. MSK: No joint swelling, no redness. Skin: No rashes, petechiae, lesions. Normal color per patient. Neuro: Normal Gait, Grossly intact. Psych: Appropriate for situation. Updated Medication List Medication Instructions Recorded Confirmed Type albuterol sulfate 2.5 mg/3 mL 2.5 mg (3 mL) inhalation Q8H PRN 07/30/24 12/08/24 Rx (0.083 %) solution for nebulization bronchospasm #75 mL epinephrine 0.3 mg/0.3 mL 0.3 mg IM Q15M PRN Allergy Symptoms 11/30/24 12/08/24 History injection, auto-injector (EpiPen) atorvastatin 10 mg tablet (Lipitor) 10 mg PO DAILY 12/06/24 12/08/24 History cholecalciferol (vitamin D3) 250 250 mcg PO DAILY 12/06/24 12/08/24 History mcg (10,000 unit) capsule fluticasone 100 mcg-salmeterol 50 1 inh inhalation BID 12/06/24 12/08/24 History mcg/dose blistr powdr for inhalation (Wixela Inhub) ondansetron 4 mg disintegrating 4 mg PO Q8H 5 days #15 tabs 12/07/24 12/08/24 Rx tablet tamsulosin 0.4 mg capsule (Flomax) 0.4 mg PO DAILY #10 caps 12/07/24 12/08/24 Rx ciprofloxacin HCl 500 mg tablet 500 mg PO BID 5 days #10 tabs 12/09/24 Rx (Cipro) oxycodone 5 mg tablet 5 mg PO Q6H PRN pain #14 tabs 12/09/24 Rx phenazopyridine 100 mg tablet 100 mg PO Q8H PRN pain #30 tabs 12/09/24 Rx (Pyridium) Hospital Stay Data Consultations 12/08/24 08:40 ED Decision to Admit Stat 12/08/24 08:58 Consult Urology Routine Procedures Performed Operation Date: 12/08/24 08:30 Actual Procedures p Cystoscopy, Right Ureteral Stent Placement, Stone Treatment(Right) - Jeramy Sim MD Diagnostic Imagining Performed 12/08/24 11:30 FL retrograde includes kub Routine Pending Results Patient Have Any Pending Studies at Discharge: No Discharge Instructions Given to Patient (Per Discharging Provider) 1. Please take medications as prescribed. 2. Follow up with PCP and urology. Total Time Total Time Spent Total Time Spent (In Minutes): I spent a total of 35 minutes in direct patient care, including [id number] time with the patient and/or family, reviewing medical records, ordering and reviewing diagnostic tests, and coordinating care with other healthcare providers. This time includes: history taking, physical examination, medical decision making, counseling, ECG interpretation, imaging interpretation, lab interpretation, orders, and education, excluding time spent in the performance of separately billed services.
== END 2024-12-09 14:15 | disposition home or self-care (01) | DRG 661 ==
LOC: ED 06:12 → OR 11:00 → 3W 11:30 → SUATTDRO 11:30 → 3W 12-09 10:40

== ENCOUNTER 2025-08-12 19:33 | Inpatient (IN) ==
--- NOTE | 2025-08-12 19:54 | Emergency Department Note ---
Impression & Plan Chest pain ED Provider Note NAME: DENICE ECHEVARRIA AGE: 65 SEX: M : 1960 ARRIVES VIA: Walk-In INFORMANT: Patient, ED PROVIDER(S): Sina Vines DO CHIEF COMPLAINT: Chest pain HPI: The patient is a 65-year-old male who presented to the emergency department for an evaluation of chest pain. The patient developed chest pain prior to arrival. He describes it as left-sided and radiation to the left shoulder. He recently got over a pulmonary issue. He was treated for bronchitis. He denies having any shortness of breath at this time. He had no leg swelling or leg pain. The patient came directly to the emergency department for further evaluation. He denies having a recent stress test. ROS: See above HPI for pertinent positives & negatives. A total of 10 systems reviewed and were otherwise negative. PAST MEDICAL HISTORY: See Below PAST SURGICAL HISTORY: See Below FAMILY HISTORY: See Below SOCIAL HISTORY: See Below HOME MEDICATIONS: See Below ALLERGIES: See Below VITALS: See Below PHYSICAL EXAMINATION: GENERAL: Patient is awake alert in no acute distress patient is resting comfortably and showing no signs of anxiety EYES: The conjunctivae are clear. The pupils are round and reactive. EARS, NOSE, MOUTH AND THROAT: The nose is without any evidence of any deformity. NECK: The neck is nontender and supple. RESPIRATORY: Normal respiratory effort is noted there is no evidence of wheezing rhonchi or rales CARDIOVASCULAR: Regular rate and rhythm noted there no murmurs rubs or gallops normal S1 normal S2. GASTROINTESTINAL: The abdomen is soft. Abdomen is nontender. MUSCULOSKELETAL/EXTREMITIES: There is no evidence of gross deformity full range of motion is noted in the hips and shoulders. SKIN: There is no obvious evidence of any rash. There are no petechiae, pallor or cyanosis noted. NEUROLOGIC: Patient is awake alert and oriented x3 MEDICAL DECISION MAKING: The patient is a 65-year-old male who presented to the emergency department for an evaluation of chest pain. The patient has a history of COPD. He does have risk factors for coronary artery disease. I discussed the patient's laboratory and radiographic studies with him I discussed the limitations of the Emergency Department workup for chest pain with him. Ultimately the patient was felt to be a good candidate for inpatient management. I discussed his condition with the on-call [facility] hospitalist. They have agreed to evaluate the patient in the emergency department. Triage Nursing notes reviewed. Prior medical records reviewed Vital Signs: reviewed and remarkable for no significant abnormalities Differential diagnosis: Cardiac ischemia, aortic dissection, pulmonary embolism, pneumothorax, pneumonia, pericarditis, myocarditis, esophageal rupture, GERD, cholecystitis, pancreatitis, musculoskeletal, as well as other pathologies. ER treatment provided: See below Diagnostics interpreted by me: ECG: EKG was obtained in the emergency department. My interpretation is normal sinus rhythm at 83 bpm. Right bundle branch block pattern was noted. This was compared to a tracing from July 26, 2025. No changes were noted. Cardiac Monitoring: An order was placed for continuous cardiac monitoring. The monitor shows a rate of 82 bpm with sinus rhythm. Laboratory studies: As stated above and show below. Imaging studies: See below. Radiographic imaging was reviewed by myself Consultation(s): I discussed this case with Dr. Dominique who was on-call for the [facility] hospitalist group. Past Med/Surg History Problem List (Updated 08/12/25 @ 23:19 by Sina Vines DO) Chest pain (Acute) Acute bronchitis due to parainfluenza virus (Acute) Acute right flank pain (Acute) Calculus of distal right ureter (Acute) Nephrolithiasis Idiopathic anaphylaxis Pruritus Acute exacerbation of chronic obstructive pulmonary disease (COPD) (Acute) Hypoxia (Acute) Acute hypoxemic respiratory failure Tobacco abuse (Acute) Leukocytosis (Acute) Tobacco abuse (Chronic) Lung nodule (Chronic) Medical History Hypoxia HLD (hyperlipidemia) COPD (chronic obstructive pulmonary disease) Facial cellulitis Abscess, dental Preseptal cellulitis History of kidney stones Surgical History Hx of oral surgery (03/08/24) p Right Upper Facial Abscess Incision and Drainage(Right) - Izaiah Mckinley DMD s Extraction x10(Bilateral) - Izaiah Mckinley DMD History of lithotripsy Family History Other Cancer Heart disease Social History Smoking Status: Current some day smoker Tobacco Type: Cigarettes Cigarettes Per Day: 1/2 pack; Hx Alcohol Use: Yes Alcohol type: beer Hx Substance Use: No Preferred Language: Korean Communication Ability: Effective Visual Impairment: No Limitations Vp & General Counsel Required: No Beliefs That Will Affect Care: None marital status: Single Current Living Situation: Spouse and Family Current Living Situation Comment: , son, and daughter in law current occupational status: employed Feels Safe at Home: Yes Assistive Devices: None Allergies Allergies Allergy/AdvReac Type Severity Reaction Status Date / Time No Known Allergies Allergy Unknown Verified 07/31/25 09:30 Home Meds Home Medications Medication Instructions Recorded Confirmed epinephrine 0.3 mg/0.3 mL 0.3 mg IM Q15M PRN Allergy Symptoms 11/30/24 07/31/25 injection, auto-injector (EpiPen) atorvastatin 10 mg tablet (Lipitor) 10 mg PO DAILY 12/06/24 07/31/25 cholecalciferol (vitamin D3) 250 1,000 unit PO DAILY 12/06/24 07/31/25 mcg (10,000 unit) capsule ondansetron HCl 4 mg tablet 4 mg PO Q8H PRN NAUSEA/VOMITING 12/12/24 07/31/25 albuterol sulfate 90 mcg/actuation 2 puff inhalation TID PRN SOB 07/26/25 07/31/25 aerosol inhaler carboxymethylcellulose sodium 0.5 1 drp ophthalmic (eye) QID 07/26/25 07/31/25 % eye drops diclofenac sodium 1 % topical gel 2 g topical QID PRN joint pain 07/26/25 07/31/25 fluticasone 250 mcg-salmeterol 50 1 inh inhalation BID 07/26/25 07/31/25 mcg/dose blistr powdr for inhalation nicotine 21 mg/24 hr daily 1 patch transdermal DAILY 07/26/25 07/31/25 transdermal patch prednisone 50 mg tablet 0 mg PO DAILY 07/26/25 07/31/25 tamsulosin 0.4 mg capsule (Flomax) 0 mg PO DAILY 07/26/25 07/31/25 Previous Rx's Medication Instructions Recorded albuterol sulfate 2.5 mg/3 mL 2.5 mg (3 mL) inhalation Q8H PRN 07/30/24 (0.083 %) solution for nebulization bronchospasm #75 mL oxycodone 5 mg tablet 5 mg PO Q6H PRN pain #14 tabs 12/09/24 phenazopyridine 100 mg tablet 100 mg PO Q8H PRN pain #30 tabs 12/09/24 (Pyridium) benzonatate 100 mg capsule 100 mg PO TID PRN cough #20 caps 07/24/25 Results & Data (ED) Vital Signs Vital Signs - 24 hr 08/12/25 19:36 08/12/25 19:44 08/12/25 19:45 Temperature 36.6 C Temperature Source Temporal Artery Scan Pulse Rate 92 H 80 Pulse Rate [Apical] 81 Pulse Rhythm Regular Pulse Strength Normal Respiratory Rate 18 16 Respiratory Effort / Characteristics Non-Labored Spontaneous Respiratory Depth Normal Respiratory Pattern Regular Blood Pressure 156/94 H Blood Pressure [Right Arm] 153/91 H Blood Pressure Mean 114 Blood Pressure Mean [Right Arm] 111 Blood Pressure Position Sitting Pulse Oximetry 94 95 Oxygen Delivery Method Room Air Room Air Sepsis Recent Fever Within 48 Hours No Sepsis New/Unexplained Change in Mental Status N/A Sepsis Action Taken by Nursing No Action Required 08/12/25 19:49 08/12/25 20:02 08/12/25 21:00 Temperature Temperature Source Pulse Rate 79 66 Pulse Rate [Apical] Pulse Rhythm Pulse Strength Respiratory Rate 16 12 Respiratory Effort / Characteristics Respiratory Depth Respiratory Pattern Blood Pressure 147/81 H 138/95 Blood Pressure [Right Arm] Blood Pressure Mean 103 106 Blood Pressure Mean [Right Arm] Blood Pressure Position Pulse Oximetry 94 96 Oxygen Delivery Method Room Air Room Air Sepsis Recent Fever Within 48 Hours Sepsis New/Unexplained Change in Mental Status Sepsis Action Taken by Nursing 08/12/25 21:02 08/12/25 22:32 08/12/25 22:42 Temperature Temperature Source Pulse Rate 62 62 Pulse Rate [Apical] 65 Pulse Rhythm Pulse Strength Respiratory Rate 13 12 16 Respiratory Effort / Characteristics Respiratory Depth Respiratory Pattern Blood Pressure 138/95 Blood Pressure [Right Arm] 139/94 Blood Pressure Mean 109 Blood Pressure Mean [Right Arm] 109 Blood Pressure Position Pulse Oximetry 96 Oxygen Delivery Method Room Air Sepsis Recent Fever Within 48 Hours Sepsis New/Unexplained Change in Mental Status Sepsis Action Taken by Fpc Medications Current Medication List: was personally reviewed by me Laboratory Data Attestation: I reviewed the patient's lab results. 08/12/25 19:45 08/12/25 19:45 Lab Results 08/12/25 08/12/25 Range/Units 19:45 21:45 WBC 6.48 (4.8-10.8) K/ul RBC 4.85 (4.70-6.10) M/uL Hgb 14.3 (14.0-18.0) g/dL Hct 41.6 L (42.0-52.0) % MCV 85.8 (80.0-100.0) fL MCH 29.5 (25.0-34.0) pg MCHC 34.4 (32.0-36.0) g/dL RDW Std Deviation 40.2 (36.4-46.3) fL RDW Coeff of [place] 12.9 (11.5-14.5) % Plt Count 316 (130-400) K/uL MPV 9.9 (9.4-12.4) fL Immature Gran % (Auto) 0.2 % Neut % (Auto) 61.8 % Lymph % (Auto) 25.0 % [place] % (Auto) 9.6 % Eos % (Auto) 2.6 % Baso % (Auto) 0.8 % Neut # (Auto) 4.01 (1.40-6.50) K/uL Lymph # (Auto) 1.62 (1.20-3.40) K/uL [place] # (Auto) 0.62 H (0.11-0.59) K/uL Eos # (Auto) 0.17 (0.00-0.50) K/uL Baso # (Auto) 0.05 (0.00-0.20) K/uL Immature Gran # (Auto) 0.01 (0.01-0.20) K/uL Sodium 140 (136-145) mmol/L Potassium 3.6 (3.5-5.1) mmol/L Chloride 105 (98-107) mmol/L Carbon Dioxide 29 (21-32) mmol/L Anion Gap 6 (3-11) BUN 14 (6-23) mg/dl Creatinine 1.05 (0.6-1.4) mg/dl Est Cr Clr Drug Dosing 85.6 ml/min eGFR 78.29 BUN/Creatinine Ratio 13.3 (10-20) Glucose 107 H (70-99(Fasting)) mg/dl Calcium 8.8 (8.6-10.3) mg/dl Total Bilirubin 0.6 (0.2-1.0) mg/dl AST 17 (13-39) U/L ALT 18 (7-52) U/L Alkaline Phosphatase 68 (34-104) U/L Troponin I High Sens 5.6 5.8 (0-20) pg/ml Total Protein 6.9 (6.0-8.3) gm/dl Albumin 3.5 (3.4-5.0) gm/dl Globulin 3.4 (2.5-4.0) gm/dl Albumin/Globulin Ratio 1.0 (0.9-2) Lipase 25 (11-82) U/L Administered Medications Discontinued Medications Aspirin (Aspirin Chew 324 Mg) 324 mg PO NOW STA Stop: 08/12/25 19:53 Last Admin: 08/12/25 19:56 Dose: 324 mg Documented By: PATRICIA Morphine Sulfate (Morphine Sulfate 4 Mg/Ml 1 Ml Carp\Vial) 4 mg IV NOW STA Stop: 08/12/25 19:53 Last Admin: 08/12/25 19:56 Dose: 4 mg Documented By: PATRICIA Ondansetron HCl (Ondansetron Inj 2 Mg/Ml 2 Ml Vial) 4 mg IV NOW STA Stop: 08/12/25 19:53 Last Admin: 08/12/25 19:56 Dose: 4 mg Documented By: PATRICIA Imaging Data Attestation: I personally reviewed and interpreted this imaging study as follows: My Impression: 1 view chest x-ray was obtained in the emergency department. My interpretation is no free air or definite infiltrate, final report pending. Discharge Plan Visit Data Chief Complaint: Cardiac Assessment Stated Complaint: CHEST PAIN ED Provider: Sina Vines Discharge Problem: Chest pain Patient Disposition: Being Evaluated by Hospitalist Condition: Fair Forms Stand Alone Forms: My [facility] Prescriptions Prescriptions: No Action epinephrine [EpiPen] 0.3 mg/0.3 mL auto-injector 0.3 mg IM Q15M PRN (Reason: Allergy Symptoms) Patient Comments: 07/26- [facility] Rx Instructions: for 2 doses cholecalciferol (vitamin D3) 250 mcg (10,000 unit) capsule 1,000 unit PO DAILY atorvastatin [Lipitor] 10 mg tablet 10 mg PO DAILY oxycodone 5 mg Tablet 5 mg PO Q6H PRN (Reason: pain) Qty: 14 0RF Patient Comments: 07/26- Not [facility]ed [facility] unable to verify phenazopyridine [Pyridium] 100 mg tablet 100 mg PO Q8H PRN (Reason: pain) Qty: 30 0RF Patient Comments: 07/26- Not [facility]ed list [facility] unable to verify albuterol sulfate 2.5 mg /3 mL (0.083 %) solution for nebulization 2.5 mg inhalation Q8H PRN (Reason: bronchospasm) Qty: 75 0RF Patient Comments: 07/26- Not [facility]ed list [facility] unable to verify ondansetron HCl [Zofran] 4 mg Tablet 4 mg PO Q8H PRN (Reason: NAUSEA/VOMITING) Patient Comments: 07/26- Not [facility]ed list [facility] unable to verify benzonatate 100 mg capsule 100 mg PO TID PRN (Reason: cough) Qty: 20 0RF Patient Comments: 07/26- Not on [facility]ed list [facility] unable to verify fluticasone propion-salmeterol 250-50 mcg/dose Blister With Device 1 inh INHALATION BID carboxymethylcellulose sodium 0.5 % Drops 1 drp OPHTHALMIC (EYE) QID nicotine 21 mg/24 hr Patch 24 Hour 1 patch TRANSDERMAL DAILY albuterol sulfate 90 mcg/actuation Hfa Aerosol Inhaler 2 puff INHALATION TID PRN (Reason: SOB) diclofenac sodium 1 % Gel 2 g TOPICAL QID PRN (Reason: joint pain) Rx Instructions: apply to single elbow, wrist or hand; for hand includes palm/fingers/back of hand tamsulosin [Flomax] 0.4 mg capsule 0 mg PO DAILY Patient Comments: 07/26- Not [facility] unable to verify prednisone 50 mg tablet 0 mg PO DAILY Patient Comments: 07/26- Not [facility] unable to verify Referrals Referrals: [facility] [Primary Care Provider] -
[2025-08-12] MEDS: MoRPHine SULFATE 4 MG/ML 1 ML CARP\\VIAL IV STA (19:56)
[2025-08-12] MEDS: ASPIRIN CHEW 324 MG PO STA (19:56)
[2025-08-12] MEDS: ONDANSETRON INJ 2 MG/ML 2 ML VIAL IV STA (19:56)
[2025-08-12 20:00] LABS: Hematocrit (blood only) 41.6 % (42.0-52.0); Hemoglobin 14.3 g/dL (14.0-18.0); Immature Granulocytes # (auto) 0.01 K/uL (0.01-0.20); Immature Granulocytes % (auto) 0.2 %; Mean Corpuscular Hemoglobin 29.5 pg (25.0-34.0); Mean Corpuscular Volume 85.8 fL (80.0-100.0); Platelet Count 316 K/uL (130-400); RDW Standard Deviation 40.2 fL (36.4-46.3); Red Blood Count 4.85 M/uL (4.70-6.10); White Blood Count 6.48 K/ul (4.8-10.8)
[2025-08-12 20:16] LABS: Alanine Aminotransferase 18.0 U/L (7-52); Albumin Globulin Ratio 1.0 (0.9-2); Albumin Level 3.5 gm/dl (3.4-5.0); Alkaline Phosphatase 68.0 U/L (34-104); Anion Gap 6.0 (3-11); Bilirubin,Total 0.6 mg/dl (0.2-1.0); Blood Urea Nitrogen 14.0 mg/dl (6-23); Calcium 8.8 mg/dl (8.6-10.3); Carbon Dioxide 29.0 mmol/L (21-32); Chloride 105.0 mmol/L (98-107); Creatinine Clr Calc Pharmacy 85.6 ml/min; Globulin 3.4 gm/dl (2.5-4.0); Glucose 107.0 mg/dl (70-99(Fasting)); Lipase 25.0 U/L (11-82); Potassium 3.6 mmol/L (3.5-5.1); Sodium 140.0 mmol/L (136-145); Total Protein 6.9 gm/dl (6.0-8.3)
--- NOTE | 2025-08-12 23:29 | History & Physical Report ---
Date of Service August 12, 2025 Assessment & Plan (1) Chest pain: Plan: Assessment and plan below following discussion of case with ED provider and reviewing patient history/pertinent normal/abnormal diagnostic test results. Chest pain Relieved by nitroglycerin Rule out ACS Musculoskeletal component given reproducibility on exam COPD, not in acute exacerbation hyperlipidemia, on statin Rx Groin pain rule out recurrent kidney stone or UTI ongoing tobacco abuse OBS Admit to PCU Aspirin for CAD prevention until ACS ruled out Follow troponin TTE, Cardiology consult re: chest pain CT abdomen pelvis re: groin pain Check UA Nicotine patch as needed DVT prophylaxis. Lovenox subcu if no bleed on CT abdomen pelvis Full code Text document was generated using [employer] voice recognition software. It may contain grammatical or spelling errors. Kindly contact undersigned for clarification of any documentation item in question. History of Present Illness Chief Complaint: Chest pain Primary Care Provider: [facility] History obtained from patient, family, and records. Medical history significant for COPD, pulmonary nodules, hyperlipidemia, urolithiasis, BPH, ongoing tobacco abuse. Last confinement November 2024 for urolithiasis. Four [facility] ER visits this month for respiratory illness. Recent ER visit last week for flulike symptoms/bronchitis attributed to prior influenza illness. Patient had achy substernal pain today going to the neck and left arm associated with some tingling. No unusual cough or SOB symptoms. Denies unusual exertion. Discomfort improved after nitroglycerin administration at the ER. Patient later noted lower abdominal pain at the ER without dysuria or hematuria symptoms. 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 Allergies Allergy/AdvReac Type Severity Reaction Status Date / Time No Known Allergies Allergy Unknown Verified 07/31/25 09:30 Home Medications Medication Instructions Recorded Confirmed Type albuterol sulfate 2.5 mg/3 mL 2.5 mg (3 mL) inhalation Q8H PRN 07/30/24 08/12/25 Rx (0.083 %) solution for nebulization bronchospasm #75 mL epinephrine 0.3 mg/0.3 mL 0.3 mg IM Q15M PRN Allergy Symptoms 11/30/24 08/12/25 History injection, auto-injector (EpiPen) atorvastatin 10 mg tablet (Lipitor) 5 mg PO QAM 12/06/24 08/12/25 History albuterol sulfate 90 mcg/actuation 2 puff inhalation TID PRN SOB 07/26/25 08/12/25 History aerosol inhaler diclofenac sodium 1 % topical gel 2 g topical QID PRN joint pain 07/26/25 08/12/25 History fluticasone 250 mcg-salmeterol 50 1 inh inhalation BID 07/26/25 08/12/25 History mcg/dose blistr powdr for inhalation Past Med/Surg History Problem List (Updated 08/12/25 @ 23:19 by Sina Vines DO) Chest pain (Acute) Acute bronchitis due to parainfluenza virus (Acute) Acute right flank pain (Acute) Calculus of distal right ureter (Acute) Nephrolithiasis Idiopathic anaphylaxis Pruritus Acute exacerbation of chronic obstructive pulmonary disease (COPD) (Acute) Hypoxia (Acute) Acute hypoxemic respiratory failure Tobacco abuse (Acute) Leukocytosis (Acute) Tobacco abuse (Chronic) Lung nodule (Chronic) Medical History Hypoxia HLD (hyperlipidemia) COPD (chronic obstructive pulmonary disease) Facial cellulitis Abscess, dental Preseptal cellulitis History of kidney stones Surgical History Hx of oral surgery (03/08/24) p Right Upper Facial Abscess Incision and Drainage(Right) - Izaiah Mckinley DMD s Extraction x10(Bilateral) - Izaiah Mckinley DMD History of lithotripsy Family History Other Cancer Heart disease Social History Smoking Status: Current some day smoker Tobacco Type: Cigarettes Cigarettes Per Day: 1/2 pack; Hx Alcohol Use: Yes Alcohol type: beer Hx Substance Use: No Preferred Language: German Communication Ability: Effective Visual Impairment: No Limitations 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 Beliefs That Will Affect Care: None marital status: Single Current Living Situation: Spouse and Family Current Living Situation Comment: , son, and daughter in law current occupational status: employed Feels Safe at Home: Yes Assistive Devices: None Review of Systems Review of Systems: As per HPI, all other systems reviewed and negative Physical Exam Physical Exam: GENERAL: obese, pleasant, slightly anxious, no respiratory distress SKIN: Normal color, warm HEENT: [place] palpebral conjunctivae, no ptosis, moist buccal mucosa NECK : Supple, no tenderness CHEST : Decreased breath sounds, anterior chest wall tenderness HEART : RRR, no obvious murmurs ABDOMEN: Some distention, minimal hypogastric tenderness EXTREMITIES : No LE swelling/tenderness, no other conspicuous deformities noted NEUROLOGIC : Coherent, no facial asymmetry, no other gross focality Results & Data Results & Data Vital Signs (Past 12 Hours) Vital Signs Temp Pulse Pulse Resp BP BP Pulse Ox 08/12/25 22:42 65 16 139/94 96 08/12/25 22:32 62 12 08/12/25 21:02 62 13 138/95 08/12/25 21:00 66 12 138/95 08/12/25 20:02 79 16 147/81 H 96 08/12/25 19:49 94 08/12/25 19:45 81 16 153/91 H 95 08/12/25 19:44 80 08/12/25 19:36 36.6 C 92 H 18 156/94 H 94 O2 Del Method 08/12/25 22:42 Room Air 08/12/25 22:32 08/12/25 21:02 08/12/25 21:00 08/12/25 20:02 Room Air 08/12/25 19:49 Room Air 08/12/25 19:45 Room Air 08/12/25 19:44 08/12/25 19:36 Room Air Laboratory Results Laboratory Results WBC 6.48 K/ul (4.8-10.8) 08/12/25 19:45 RBC 4.85 M/uL (4.70-6.10) 08/12/25 19:45 Hgb 14.3 g/dL (14.0-18.0) 08/12/25 19:45 Hct 41.6 % (42.0-52.0) L 08/12/25 19:45 MCV 85.8 fL (80.0-100.0) 08/12/25 19:45 MCH 29.5 pg (25.0-34.0) 08/12/25 19:45 MCHC 34.4 g/dL (32.0-36.0) 08/12/25 19:45 RDW Std Deviation 40.2 fL (36.4-46.3) 08/12/25 19:45 RDW Coeff of [place] 12.9 % (11.5-14.5) 08/12/25 19:45 Plt Count 316 K/uL (130-400) 08/12/25 19:45 MPV 9.9 fL (9.4-12.4) 08/12/25 19:45 Immature Gran % (Auto) 0.2 % 08/12/25 19:45 Neut % (Auto) 61.8 % 08/12/25 19:45 Lymph % (Auto) 25.0 % 08/12/25 19:45 [place] % (Auto) 9.6 % 08/12/25 19:45 Eos % (Auto) 2.6 % 08/12/25 19:45 Baso % (Auto) 0.8 % 08/12/25 19:45 Neut # (Auto) 4.01 K/uL (1.40-6.50) 08/12/25 19:45 Lymph # (Auto) 1.62 K/uL (1.20-3.40) 08/12/25 19:45 [place] # (Auto) 0.62 K/uL (0.11-0.59) H 08/12/25 19:45 Eos # (Auto) 0.17 K/uL (0.00-0.50) 08/12/25 19:45 Baso # (Auto) 0.05 K/uL (0.00-0.20) 08/12/25 19:45 Immature Gran # (Auto) 0.01 K/uL (0.01-0.20) 08/12/25 19:45 Sodium 140 mmol/L (136-145) 08/12/25 19:45 Potassium 3.6 mmol/L (3.5-5.1) 08/12/25 19:45 Chloride 105 mmol/L (98-107) 08/12/25 19:45 Carbon Dioxide 29 mmol/L (21-32) 08/12/25 19:45 Anion Gap 6 (3-11) 08/12/25 19:45 BUN 14 mg/dl (6-23) 08/12/25 19:45 Creatinine 1.05 mg/dl (0.6-1.4) 08/12/25 19:45 Est Cr Clr Drug Dosing 85.6 ml/min 08/12/25 19:45 eGFR 78.29 08/12/25 19:45 BUN/Creatinine Ratio 13.3 (10-20) 08/12/25 19:45 Glucose 107 mg/dl (70-99(Fasting)) H 08/12/25 19:45 Calcium 8.8 mg/dl (8.6-10.3) 08/12/25 19:45 Total Bilirubin 0.6 mg/dl (0.2-1.0) 08/12/25 19:45 AST 17 U/L (13-39) 08/12/25 19:45 ALT 18 U/L (7-52) 08/12/25 19:45 Alkaline Phosphatase 68 U/L (34-104) 08/12/25 19:45 Troponin I High Sens 5.8 pg/ml (0-20) 08/12/25 21:45 Total Protein 6.9 gm/dl (6.0-8.3) 08/12/25 19:45 Albumin 3.5 gm/dl (3.4-5.0) 08/12/25 19:45 Globulin 3.4 gm/dl (2.5-4.0) 08/12/25 19:45 Albumin/Globulin Ratio 1.0 (0.9-2) 08/12/25 19:45 Lipase 25 U/L (11-82) 08/12/25 19:45 Diagnostic Findings EKG as per my interpretation :Rate 85, NSR, normal axis, RBBB, no ischemia
[2025-08-12] MEDS ORDERED: PROMETHAZINE 6.25 MG/50.25 ML BAG IV PRN (23:56)
[2025-08-12] MEDS ORDERED: MoRPHine SULFATE 4 MG/ML 1 ML CARP\\VIAL IV PRN (23:56)
[2025-08-12] MEDS ORDERED: DICLOFENAC SOD 1% GEL 100 GM TUBE EXT PRN (23:58)
[2025-08-12] MEDS ORDERED: ALBUT/IPRATROP 3MG/0.5MG NEB 3 ML VIAL NEB PRN (23:58)
[2025-08-13] MEDS: NITROGLYCERIN SL 0.4 MG/TAB TAB SL STA (00:06)
[2025-08-13 00:17] LABS: Magnesium 2.0 mg/dl (1.7-2.4)
[2025-08-13] MEDS: OPTIRAY 320 100ml IV ONE (01:10)
--- NOTE | 2025-08-13 01:24 | XRay Report ---
Exam(s): XR CXR 1 VIEW EXAM: XR Chest, 1 View CLINICAL HISTORY: Reason for exam: Chest pain, nonspecific. TECHNIQUE: Frontal view of the chest. COMPARISON: Prior chest x-ray from August 06, 2025. FINDINGS: Lungs: Mild to moderate peribronchial thickening of the central lower lobe bronchi. No consolidation. There is a small pulmonary nodule in the right lower lobe. Pleural space: Unremarkable. No pneumothorax. Heart: Unremarkable. No cardiomegaly. Mediastinum: Unremarkable. Normal mediastinal contour. Bones/joints: Unremarkable. No acute fracture. IMPRESSION: Bronchitis, which may be of infectious or inflammatory etiologies. No consolidation or pleural effusion. Stable right lower lobe pulmonary nodule. Electronically signed by: Lorena Julien MD 08/13/25 01:23 AM
--- NOTE | 2025-08-13 01:44 | CT Scan Report ---
EXAM: CT abd pelvis IV con only CLINICAL HISTORY: abd pain TECHNIQUE: Contiguous axial images were obtained from the level of the diaphragm to the pubic symphysis with intravenous contrast. Coronal and sagittal reconstructions were likewise performed and indicated to increase the sensitivity for detecting clinically relevant pathology. If IV contrast material had not been administered, the likelihood of detecting abnormalities relevant to the patient's condition would have been substantially decreased. CT scan was performed according to ALARA (as low as reasonably achievable). COMPARISON: 19:47:09 DOCK HAND FINDINGS: Small calcified granuloma is noted involving right middle lobe. About 6 mm sized nodule is noted involving right posterior basal segment. Few atelectatic bands are noted in the bilateral basal segments. Sliding hiatus hernia noted. The liver is normal in size and attenuation. No focal liver lesions are seen. There is no intra or extrahepatic biliary ductal dilatation. Hepatic vasculature is patent. The gallbladder is present. The spleen, pancreas, and adrenal glands are unremarkable. The kidneys are normal in size and attenuation. There is no hydronephrosis or perinephric fat stranding. No renal calculi or renal masses are identified. The ureters are normal in caliber and no ureteral calculi are seen. The bladder is normal in contour. Enlarged prostate, measuring about 36 x 36 mm. No focal or diffuse bowel wall thickening or evidence of bowel obstruction is identified. No imaging evidence of appendicitis. Abdominal and pelvic vasculature is patent. No adenopathy or fluid collections are seen. No aggressive appearing osseous lesions are identified. Colonic fecal and gaseous distension IMPRESSION: Small calcified granuloma is noted involving right middle lobe.-new finding. About 6 mm sized nodule is noted involving right posterior basal segment.-new finding. Few atelectatic bands are noted in the bilateral basal segments. Sliding hiatus hernia noted.-stable. Enlarged prostate.-stable. No acute intracranial abnormality seen. Removal of prior right sided DJ stent. Prior cholelithiasis also resolved. Electronically signed by Stu Devlin 08-13-2025 01:44 AM
[2025-08-13] MEDS ORDERED: NITROGLYCERIN SL 0.4 MG/TAB TAB SL PRN (03:21)
[2025-08-13] MEDS: LACTATED RINGER'S 1,000 ML IV ONE (03:23)
[2025-08-13 05:49] LABS: Appearance Urine Clear (Clear); Glucose Urine UA Negative (Negative)
[2025-08-13 06:02] LABS: Hematocrit (blood only) 41.8 % (42.0-52.0); Hemoglobin 14.1 g/dL (14.0-18.0); Immature Granulocytes # (auto) 0.02 K/uL (0.01-0.20); Immature Granulocytes % (auto) 0.3 %; Mean Corpuscular Hemoglobin 29.9 pg (25.0-34.0); Mean Corpuscular Volume 88.7 fL (80.0-100.0); Platelet Count 308 K/uL (130-400); RDW Standard Deviation 42.8 fL (36.4-46.3); Red Blood Count 4.71 M/uL (4.70-6.10); White Blood Count 5.73 K/ul (4.8-10.8)
[2025-08-13 06:17] LABS: Anion Gap 4.0 (3-11); Blood Urea Nitrogen 17.0 mg/dl (6-23); Calcium 8.8 mg/dl (8.6-10.3); Carbon Dioxide 30.0 mmol/L (21-32); Chloride 105.0 mmol/L (98-107); Cholesterol 170.0 mg/dl (0-200); Creatinine Clr Calc Pharmacy 85.6 ml/min; Glucose 96.0 mg/dl (70-99(Fasting)); HDL Cholesterol 43.0 mg/dl; Potassium 4.1 mmol/L (3.5-5.1); Sodium 139.0 mmol/L (136-145); Triglycerides 112.0 mg/dl (0-150)
[2025-08-13 06:28] LABS: Partial Thromboplastin Time 31 Seconds (21-31)
--- NOTE | 2025-08-13 08:17 | Cardiology Consultation ---
Date of Consultation August 13, 2025 Assessment & Plan (1) Chest pain: (2) HLD (hyperlipidemia): (3) Tobacco abuse: Plan 65 year old male with PMHx significant for COPD, pulmonary nodules, HLD, urolithiasis, and tobacco use disorder who presented to [facility] on 08/12/25 for evaluation of dull, aching chest discomfort radiating to left neck and arm with associated numbness and tingling. He has had several [facility] ED visits over the past months for COPD exacerbation and respiratory illness. Most recent [facility] ED visit (08/06/25) and treated for acute bronchitis due parainfluenza virus at that time. Plan: * Atypical chest discomfort reproducible upon exam likely non-cardiac in nature and possibly secondary to musculoskeletal etiology due to coughing with acute URI * Appears euvolemic upon clinical exam * Heart rate and blood pressure well controlled * High-sensitivity troponins x3 remain flat (5.6-5.8-5.3) * EKG upon admission revealed sinus rhythm with RBBB and no acute ST-T wave abnormalities * ECHO today revealed preserved systolic function (LVEF 55-60%) with no WMAs, no rmal RV size and function, and no significant valvular disease * Continue [employer] aspirin and atorvastatin * May consider further ischemic evaluation with dobutamine stress test versus cardiac CT on Friday (08/15) given significant ASCVD risk factors and anginal equivalent symptoms if patient is agreeable to stay over the weekend. If not, recommend outpatient cardiology follow-up and ischemic work-up. Case discussed and coordinated with Dr. Bhatt. Please see Dr. Bhatt notes for further recommendations. I spent a total of 45 minutes coordinating, documenting, and providing care for this patient excluding time spent in the performance of separately billed services or time spent by another provider/QHP. JOAQUIN Sen Department of Cardiology Supervising Physician Co-Signing Physician Notes I spent a total of 60 minutes on the date of service in preparation, delivery, and documentation of the care provided to this patient, excluding any time spent in the performance of separately billed services. I have personally performed a history and physical examination on the patient. I have reviewed the advance practitioner's documentation, and I agree with, and take responsibility for the plan of care. 65-year-old male with a past medical history of COPD, chronic bronchitis, HLD presented to [facility] with symptoms of chest discomfort. Patient states he gets on and off chest discomfort when he has chronic bronchitis however yesterday symptoms were more intense. He states he was at home resting prior to going out to eat he started having a sharp left-sided chest discomfort. After his dinner the chest pain persisted and was getting worse in severity. He states he had tingling in his left arm. He states he has had multiple recent ER visits with acute bronchitis and has been treated with steroids and antibiotics with no improvement in his symptoms of cough wheezing. He describes the chest disco mfort as sharp and nonexertional. It is reproducible on exam especially when he coughs and presses on his chest. Currently resting comfortably in bed but still having the chest discomfort. It still is reproducible on exam. His ECG showed sinus rhythm with right bundle branch block but no acute ischemic changes compared to prior ECG. Troponins have been negative x 3. On clinical exam is euvolemic. He has diffuse wheezing bilaterally. Long discussion with patient about his symptoms. He has atypical features with possible underlying musculoskeletal component as well as the pain is reproducible on exam. He does have risk factors for coronary artery disease as he has a family history of CAD along with smoking. Currently also having symptoms of possible acute bronchitis. Acute coronary syndrome has been ruled out with negative troponins. Will need an ischemic evaluation at some point however currently having diffuse wheezing bilaterally. Would recommend optimizing pulmonary status. Recommend CTA of the chest. His echocardiogram done today showed preserved left ventricular ejection fraction. May consider dobutamine stress echocardiogram (would avoid a Lexiscan nuclear stress test as patient has diffuse bilateral wheezing). Patient unable to exercise due to weakness in lower extremities. Or we can consider an outpatient cardiac CT and [place] after discharge. Will await results of CTA of the chest. History of Present Illness Reason for Consultation: Chest pain Requesting Physician: Arthur Dominique MD Attending Physician: Aj Crews DO History of Present Illness 65 year old male with PMHx significant for COPD, pulmonary nodules, HLD, urolithiasis, BPH, and tobacco use disorder who presented to [facility] on 08/12/25 for evaluation of chest discomfort. He has had several [facility] ED visits over the past months for COPD exacerbation and respiratory illness. Most recent [facility] ED visit (08/06/25) and treated for acute bronchitis due parainfluenza virus at that time. He was sitting at the table yesterday when he developed dull, aching right-sided chest discomfort radiating across his chest to left neck and left arm with associated numbness and tingling. Pain rated at a 4 out of 10. Chest discomfort worsened with deep breathing. Associated shortness of breath. Denies associated nausea or diaphoresis. He received SL nitroglycerin in ED but still has constant non-radiating, dull aching mid upper chest discomfort that is reproducible upon exam. 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 Has noticed that he feels more fatigued and worn out after work. Dyspnea on exertion with strenuous activity such as cleaning bathrooms and climbing stairs. Sometimes feels short of breath with laying flat in bed, but does not occur every time. His appetite has decreased over the past few weeks. Weight gain of 2-5 lbs over the past month. Denies tachy palpitations, lightheadedness, dizziness, or syncope. Denies fever, chills, muscle aches, cough, congestion or flu-like symptoms. Currently smoking 3/4 ppd. Occasional ETOH intake. Denies history of illicit drug use. Family History: Father - [place] (age 71) Allergies Allergy/AdvReac Type Severity Reaction Status Date / Time No Known Allergies Allergy Unknown Verified 07/31/25 09:30 Home Medications Medication Instructions Recorded Confirmed Type albuterol sulfate 2.5 mg/3 mL 2.5 mg (3 mL) inhalation Q8H PRN 07/30/24 08/12/25 Rx (0.083 %) solution for nebulization bronchospasm #75 mL epinephrine 0.3 mg/0.3 mL 0.3 mg IM Q15M PRN Allergy Symptoms 11/30/24 08/12/25 History injection, auto-injector (EpiPen) atorvastatin 10 mg tablet (Lipitor) 5 mg PO QAM 12/06/24 08/12/25 History albuterol sulfate 90 mcg/actuation 2 puff inhalation TID PRN SOB 07/26/25 08/12/25 History aerosol inhaler diclofenac sodium 1 % topical gel 2 g topical QID PRN joint pain 07/26/25 08/12/25 History fluticasone 250 mcg-salmeterol 50 1 inh inhalation BID 07/26/25 08/12/25 History mcg/dose blistr powdr for inhalation Patient History Medical History Hypoxia HLD (hyperlipidemia) COPD (chronic obstructive pulmonary disease) Facial cellulitis Abscess, dental Preseptal cellulitis History of kidney stones Surgical History Hx of oral surgery (03/08/24) p Right Upper Facial Abscess Incision and Drainage(Right) - Izaiah Mckinley DMD s Extraction x10(Bilateral) - Izaiah Mckinley DMD History of lithotripsy Family History Other Cancer Heart disease Social History Smoking Status: Current every day smoker Tobacco Type: Cigarettes Cigarettes Per Day: 1/2 pack; Second Hand Exposure: No; Do You Dip or Chew Tobacco: No; Tobacco Cessation Education Requested by Patient: No Hx Alcohol Use: Yes Alcohol type: hard liquor Hx Substance Use: No Preferred Language: Faroese Communication Ability: Effective Visual Impairment: No Limitations Diagnostic Assistant Required: No Beliefs That Will Affect Care: None marital status: Single Current Living Situation: Family Current Living Situation Comment: , son, and daughter in law current occupational status: employed Other Information That Helps Us Care for You: No Feels Safe at Home: Yes Assistive Devices: Glasses and Hearing Aid - Bilateral Review of Systems Review of Systems: See HPI for pertinent positives. All others negative other than those noted in the HPI. CONSTITUTIONAL: +fatigue. No change in weight, No weakness, No fevers, No sweats or chills. HEENT: No visual changes, No epistaxis, No bleeding gums, No dysphagia, PULMONARY: No cough, sputum, or hemoptysis, No wheezing, No shortness of breath, and No recent change in breathing. CARDIOVASCULAR: +chest pain, dyspnea on exertion. No edema, No palpitations, No syncope, No claudication, No calf pain. GASTROINTESTINAL: No change in appetite, No abdominal pain, No change in bowel habits, No significant heartburn, No nausea, No vomiting, No diarrhea, No constipation, No blood in stools or black tarry stools, No dysphagia. HEMATOLOGIC: No abnormal bleeding and No bruising. NEUROLOGICAL: No falls, No dizziness, No lightheadedness, Normal balance, No headaches, and No weakness. PSYCH: No sleep disturbances, No mood changes. Physical Exam Physical Exam: Vital signs within normal limits as above. General: Well developed and nourished. No acute distress. A+Ox3. HEENT: Normocephalic. Atraumatic. EOMI. Conjunctiva and sclera clear. NECK: Trachea midline. No thyromegaly. No carotid bruits. No JVD. Carotid upstrokes are brisk. Heart: RRR. S1 and S2 noted. No murmur. No rubs or gallops. PMI non displaced. Lungs: Diminished breath sound throughout posterior lobes with inspiratory and expiratory wheezes. No rhonchi. No rales. Abdomen: Normal bowel sounds. Soft. Nontender. No abdominal bruits. Extremities: Normal capillary refill. No edema. No clubbing or cyanosis. Skin: Warm and dry. NEURO: No focal deficits. PSYCH: Appropriate affect and insight. Results & Data Vital Signs (Past 12 Hours) Vital Signs Temp Pulse Pulse Resp BP BP Pulse Ox 08/13/25 07:42 36.7 C 62 16 128/94 96 08/13/25 03:14 36.3 C L 61 18 132/85 95 08/13/25 02:32 63 08/13/25 02:08 08/13/25 02:08 36.3 C L 64 15 136/90 93 08/13/25 00:55 56 L 16 121/76 93 08/13/25 00:35 69 14 128/86 93 08/13/25 00:30 64 14 126/85 96 08/13/25 00:20 70 16 132/81 92 08/13/25 00:15 67 14 131/80 92 08/13/25 00:10 132/85 08/13/25 00:05 66 16 131/87 94 08/13/25 00:00 63 14 132/89 94 08/12/25 23:44 67 08/12/25 23:00 62 14 143/86 H 95 08/12/25 22:42 65 16 139/94 96 08/12/25 22:32 62 12 08/12/25 21:02 62 13 138/95 08/12/25 21:00 66 12 138/95 O2 Del Method 08/13/25 07:42 Room Air 08/13/25 03:14 Room Air 08/13/25 02:32 08/13/25 02:08 Room Air 08/13/25 02:08 Room Air 08/13/25 00:55 Room Air 08/13/25 00:35 Room Air 08/13/25 00:30 Room Air 08/13/25 00:20 Room Air 08/13/25 00:15 Room Air 08/13/25 00:10 08/13/25 00:05 Room Air 08/13/25 00:00 Room Air 08/12/25 23:44 08/12/25 23:00 Room Air 08/12/25 22:42 Room Air 08/12/25 22:32 08/12/25 21:02 08/12/25 21:00 Laboratory Results Cardiac Enzymes 08/12/25 08/12/25 08/13/25 Range/Units 19:45 21:45 05:38 AST 17 (13-39) U/L Troponin I High Sens 5.6 5.8 5.3 (0-20) pg/ml Coagulation 08/13/25 Range/Units 05:38 APTT 31 (21-31) Seconds Lipids 08/13/25 Range/Units 05:38 Triglycerides 112 (0-150) mg/dl Cholesterol 170 (0-200) mg/dl HDL Cholesterol 43 mg/dl Cholesterol/HDL Ratio 4.0 (0-5) CBC 08/12/25 08/13/25 Range/Units 19:45 05:38 WBC 6.48 5.73 (4.8-10.8) K/ul RBC 4.85 4.71 (4.70-6.10) M/uL Hgb 14.3 14.1 (14.0-18.0) g/dL Hct 41.6 L 41.8 L (42.0-52.0) % Plt Count 316 308 (130-400) K/uL Neut # (Auto) 4.01 3.05 (1.40-6.50) K/uL Lymph # (Auto) 1.62 1.81 (1.20-3.40) K/uL [place] # (Auto) 0.62 H 0.64 H (0.11-0.59) K/uL Eos # (Auto) 0.17 0.18 (0.00-0.50) K/uL Baso # (Auto) 0.05 0.03 (0.00-0.20) K/uL Comprehensive Metabolic Panel 08/12/25 08/13/25 Range/Units 19:45 05:38 Sodium 140 139 (136-145) mmol/L Potassium 3.6 4.1 (3.5-5.1) mmol/L Chloride 105 105 (98-107) mmol/L Carbon Dioxide 29 30 (21-32) mmol/L BUN 14 17 (6-23) mg/dl Creatinine 1.05 1.05 (0.6-1.4) mg/dl Glucose 107 H 96 (70-99(Fasting)) mg/dl Calcium 8.8 8.8 (8.6-10.3) mg/dl AST 17 (13-39) U/L ALT 18 (7-52) U/L Alkaline Phosphatase 68 (34-104) U/L Total Protein 6.9 (6.0-8.3) gm/dl Albumin 3.5 (3.4-5.0) gm/dl Intake and Output 08/12/25 08/13/25 08/13/25 22:59 06:59 14:59 Intake Total 200 / 200 Output Total 500 / 500 Balance -300 / -300 Intake: Oral 200 / 200 Output: Urine 500 / 500 Other: Weight 105.7 kg 104.1 kg Weight Measurement Method Chair Scale Built in [facility] Diagnostic Findings EKG 08/12/25 at 19:42:05 NSR RBBB 83 bpm QTc 439 ms Chest X-Ray 08/12/25 19:39 Exam(s): XR CXR 1 VIEW EXAM: XR Chest, 1 View CLINICAL HISTORY: Reason for exam: Chest pain, nonspecific. TECHNIQUE: Frontal view of the chest. COMPARISON: Prior chest x-ray from August 06, 2025. FINDINGS: Lungs: Mild to moderate peribronchial thickening of the central lower lobe bronchi. No consolidation. There is a small pulmonary nodule in the right lower lobe. Pleural space: Unremarkable. No pneumothorax. Heart: Unremarkable. No cardiomegaly. Mediastinum: Unremarkable. Normal mediastinal contour. Bones/joints: Unremarkable. No acute fracture. IMPRESSION: Bronchitis, which may be of infectious or inflammatory etiologies. No consolidation or pleural effusion. Stable right lower lobe pulmonary nodule. Electronically signed by: Lorena Julien MD 08/13/25 01:23 AM Abdomen/Pelvis CT 08/13/25 00:29 EXAM: CT abd pelvis IV con only CLINICAL HISTORY: abd pain TECHNIQUE: Contiguous axial images were obtained from the level of the diaphragm to the pubic symphysis with intravenous contrast. Coronal and sagittal reconstructions were likewise performed and indicated to increase the sensitivity for detecting clinically relevant pathology. If IV contrast material had not been administered, the likelihood of detecting abnormalities relevant to the patient's condition would have been substantially decreased. CT scan was performed according to ALARA (as low as reasonably achievable). COMPARISON: 19:47:09 COYOTE HUNTER FINDINGS: Small calcified granuloma is noted involving right middle lobe. About 6 mm sized nodule is noted involving right posterior basal segment. Few atelectatic bands are noted in the bilateral basal segments. Sliding hiatus hernia noted. The liver is normal in size and attenuation. No focal liver lesions are seen. There is no intra or extrahepatic biliary ductal dilatation. Hepatic vasculature is patent. The gallbladder is present. The spleen, pancreas, and adrenal glands are unremarkable. The kidneys are normal in size and attenuation. There is no hydronephrosis or perinephric fat stranding. No renal calculi or renal masses are identified. The ureters are normal in caliber and no ureteral calculi are seen. The bladder is normal in contour. Enlarged prostate, measuring about 36 x 36 mm. No focal or diffuse bowel wall thickening or evidence of bowel obstruction is identified. No imaging evidence of appendicitis. Abdominal and pelvic vasculature is patent. No adenopathy or fluid collections are seen. No aggressive appearing osseous lesions are identified. Colonic fecal and gaseous distension IMPRESSION: Small calcified granuloma is noted involving right middle lobe.-new finding. About 6 mm sized nodule is noted involving right posterior basal segment.-new finding. Few atelectatic bands are noted in the bilateral basal segments. Sliding hiatus hernia noted.-stable. Enlarged prostate.-stable. No acute intracranial abnormality seen. Removal of prior right sided DJ stent. Prior cholelithiasis also resolved. Electronically signed by Stu Devlin 08-13-2025 01:44 AM PG Care Time/CCT Total # of Minutes Spent Total Time Spent with Patient: Total time spent is greater than 50% in coordination of care (as documented) at patient's floor/unit and/or counseling patient: [place] [address] INT INP/OBS CARE 3/75MIN Patient Type New Medical Decision Making High Complexity Diagnoses Chest pain R07.9 HLD (hyperlipidemia) E78.5 Tobacco abuse Z72.0 Time Spent (min) 45
--- NOTE | 2025-08-13 08:23 | Electrocardiogram Report ---
Test Reason : Blood Pressure : */* mmHG Vent. Rate : 83 BPM Atrial Rate : 83 BPM P-R Int : 124 ms QRS Dur : 128 ms QT Int : 374 ms P-R-T Axes : 71 -27 71 degrees QTcB Int : 439 ms Normal sinus rhythm Right bundle branch block Abnormal ECG When compared with ECG of 26-Jul-2025 11:06, No significant change was found Confirmed by Jeff Leam ([id number]) on 08/13/2025 8:23:16 AM Referred By: REFERRED SELF Confirmed By: Jeff Lema
[2025-08-13] MEDS: ATORVASTATIN 10 MG TAB PO SCH (09:18)
[2025-08-13] MEDS: ASPIRIN 81 MG ECTAB PO SCH (09:18)
[2025-08-13] MEDS: FLUTICASONE/VILANTEROL 200/25MCG 14 PUFFS/INHALER INH SCH (09:18)
[2025-08-13] MEDS: ENOXAPARIN INJ 40 MG/0.4 ML SYR SQ SCH (09:19)
--- NOTE | 2025-08-13 10:07 | Hospitalist Progress Note ---
Date of Service August 13, 2025 Assessment & Plan (1) Chest pain: Plan 65M with PMH COPD, lifelong smoking, lung nodules who presents with chest pain #Chest pain -Substernal chest pain with radiation to neck and down left arm -It is reproducible to palpation. Also worse with inspiration -HS trops normal -EKG without ST segment changes -No history of KS or VTE -Unclear etiology at this point. -Suspect MSK component due to recent URI with coughing however this would not ex plain the radiating symptoms - PE and unstable angina remain in differential -Also endorsing new LE edema and orthopnea Plan -Check D dimer and BNP -If D dimer elevated, check CTA and dopplers -TTE pending -Appreciate cardio input -Cardiac monitoring -Continue ASA and statin therapy for now #Lung nodules -Lung nodules and granuloma seen on CT -Known history of lung nodules -Instructed to f/u with his PCP as OP #Tobacco abuse -Quit smoking a few weeks ago -Counselled on risks of smoking I spent a total of 51 minutes coordinating, documenting, and providing care for this patient excluding time spent in the performance of separately billed services. This included personally reviewing all current laboratories and imaging studies, medical reconciliation, outpatient chart review and discussion with specialists Admission and Anticipated Discharge Date Admission Date: August 12, 2025 Subjective still c/o substernal chest pain. no radiation to neck or arm today. pain is improved from yesterday D/w and son at bedside D/w cardio ALICIA Physical Exam Physical Exam: Vitals and labs reviewed General: Well appearing, NAD HEENT: EOMI, PERRLA Neck: Supple Cardiac: RRR no rubs gallops or murmurs. TTP over sternum, L anterior intercostals Lungs: CTA no rhonchi wheezing or rales Abd: S NT ND BS positive : Deffered MSK: Full ROM. No obvious deformities Ext: trace b/l LE pitting Edema NO cyanosis Skin: Warm, Dry Neuro: AOx3 No focal deficits. Psych: Normal Mood Results & Data Results & Data Vital Signs (Past 12 Hours) Vital Signs Temp Pulse Pulse Resp BP BP Pulse Ox 08/13/25 07:42 36.7 C 62 16 128/94 96 08/13/25 03:14 36.3 C L 61 18 132/85 95 08/13/25 02:32 63 08/13/25 02:08 08/13/25 02:08 36.3 C L 64 15 136/90 93 08/13/25 00:55 56 L 16 121/76 93 08/13/25 00:35 69 14 128/86 93 08/13/25 00:30 64 14 126/85 96 08/13/25 00:20 70 16 132/81 92 08/13/25 00:15 67 14 131/80 92 08/13/25 00:10 132/85 08/13/25 00:05 66 16 131/87 94 08/13/25 00:00 63 14 132/89 94 08/12/25 23:44 67 08/12/25 23:00 62 14 143/86 H 95 08/12/25 22:42 65 16 139/94 96 08/12/25 22:32 62 12 O2 Del Method 08/13/25 07:42 Room Air 08/13/25 03:14 Room Air 08/13/25 02:32 08/13/25 02:08 Room Air 08/13/25 02:08 Room Air 08/13/25 00:55 Room Air 08/13/25 00:35 Room Air 08/13/25 00:30 Room Air 08/13/25 00:20 Room Air 08/13/25 00:15 Room Air 08/13/25 00:10 08/13/25 00:05 Room Air 08/13/25 00:00 Room Air 08/12/25 23:44 08/12/25 23:00 Room Air 08/12/25 22:42 Room Air 08/12/25 22:32 Laboratory Results Abnormal lab results 08/12/25 08/13/25 08/13/25 Range/Units 19:45 05:24 05:38 Hct 41.6 L 41.8 L (42.0-52.0) % [place] # (Auto) 0.62 H 0.64 H (0.11-0.59) K/uL Glucose 107 H (70-99(Fasting)) mg/dl Ur Specific [place] 1.042 H (1.000-1.030)
[2025-08-13] MEDS: ACETAMINOPHEN 500 MG TAB PO PRN (10:21)
--- NOTE | 2025-08-13 11:02 | XCELERA ---
[id number]\[id number]
[2025-08-13] MEDS: OPTIRAY 320 125ml IV ONE (13:15)
--- NOTE | 2025-08-13 14:14 | Electrocardiogram Report ---
Test Reason : Blood Pressure : */* mmHG Vent. Rate : 61 BPM Atrial Rate : 61 BPM P-R Int : 130 ms QRS Dur : 126 ms QT Int : 432 ms P-R-T Axes : 63 -5 43 degrees QTcB Int : 434 ms Normal sinus rhythm Right bundle branch block Abnormal ECG When compared with ECG of 12-Aug-2025 19:42, No significant change was found Confirmed by Jeff Lema ([id number]) on 08/13/2025 2:14:09 PM Referred By: REFERRED SELF Confirmed By: Jeff Lema
--- NOTE | 2025-08-13 14:45 | CT Scan Report ---
Clinical history: Rule out pulmonary embolism Technique: Axial computed tomography images were obtained of the chest after the administration of intravenous contrast according to the CT angiogram protocol Comparison is made to the prior CT dated 07/29/2024 Findings: There is no definite sign of pulmonary embolism. There is a centrally calcified nodule in the right upper lobe just above the right minor fissure, consistent with a benign granuloma. There is an unchanged 4-5 mm nodule along the right major fissure. There is bilateral lower lobe atelectasis. There is no pleural effusion or pneumothorax. There is no sign of pulmonary fibrosis or other diffuse interstitial process. No endobronchial lesion is seen There is no mediastinal, hilar, or axillary adenopathy. The thoracic aorta appears unremarkable with no sign of aneurysm or dissection. There is no pericardial effusion The visualized upper abdomen appears unremarkable. No fracture is seen. No focal osseous lesion is evident Impression: 1. No definite sign of pulmonary embolism 2. Unchanged small right lung nodule, likely benign. A follow-up chest CT could be obtained in 6 months to ensure continued stability Electronically signed by Wayne Milian 08-13-2025 2:44 PM
--- NOTE | 2025-08-14 08:15 | Cardiology Progress Note ---
Date of Service August 14, 2025 Assessment & Plan (1) Chest pain: (2) Acute bronchitis due to parainfluenza virus: (3) HLD (hyperlipidemia): (4) Tobacco abuse: Plan 65 year old male with PMHx significant for COPD, pulmonary nodules, HLD, urolithiasis, and tobacco use disorder who presented to [facility] on 08/12/25 for evaluation of dull, aching chest discomfort radiating to left neck and arm with associated numbness and tingling. He has had several [facility] ED visits over the pa st months for COPD exacerbation and respiratory illness. Most recent [facility] ED visit (08/06/25) and treated for acute bronchitis due parainfluenza virus at that time. 08/13: High-sensitivity troponins x3 negative (5.6-5.8-5.3). EKG with NSR with known RBBB and no acute ST-T wave abnormalities. ECHO with preserved systolic function with no WMAs, normal RV size and function, and no significant valvular disease. CTA Chest with no acute cardiopulmonary abnormalities. Plan/Recommendations: * Ongoing atypical chest discomfort reproducible upon exam likely non-cardiac in nature and possibly secondary to musculoskeletal etiology due to coughing with acute URI * Heart rates well controlled but blood pressure elevated this morning * Started on amlodipine 5 mg daily * Continue [employer] aspirin and atorvastatin * Plan for further ischemic evaluation with nuclear stress test on Friday (08/15) given significant ASCVD risk factors and NPO at midnight for testing. Would recommend administration of nebulizer treatment 45-60 minutes prior to stress test in AM. * Will defer to primary team for ongoing management of acute bronchitis and COPD exacerbation Case discussed and coordinated with Dr. Bhatt. Please see Dr. Bhatt notes for further recommendations. I spent a total of 30 minutes coordinating, documenting, and providing care for this patient excluding time spent in the performance of separately billed services or time spent by another provider/QHP. JOAQUIN Sen Department of Cardiology Admission and Anticipated Discharge Date Admission Date: August 12, 2025 Supervising Physician Co-Signing Physician Notes I spent a total of 30 minutes on the date of service in preparation, delivery, and documentation of the care provided to this patient, excluding any time spent in the performance of separately billed services. I have personally performed a history and physical examination on the patient. I have reviewed the advance practitioner's documentation, and I agree with, and take responsibility for the plan of care. CT PE study showed no pulmonary embolism. Patient states his left arm numbness discomfort has resolved. Still having persistent left-sided chest pain which is improving again reproducible on exam. Patient does have risk factors for coronary artery disease. Given his left arm discomfort we will plan on an ischemic evaluation. Patient no longer wheezing today has got albuterol treatments and is back on his inhaler. Will plan for a Lexiscan nuclear stress test in the morning. Please keep patient n.p.o. after midnight. Give dose of albuterol treatment 45 minutes before his scheduled Lexiscan to help mitigate symptoms of shortness of breath during stress test. He denies any history of seizures/CVA or intracranial hemorrhage or carotid artery disease. Subjective Seen by cardiology today for examination and follow-up. Laying comfortably in bed on room air. Still has constant left-sided chest tightness radiating to left arm with symptoms slightly improved since yesterday. Denies worsening chest discomfort with ambulating around his room. Denies worsening shortness of breath, tachy palpitations, lightheadedness, orthopnea, PND, or worsening edema. Chart, medications, and telemetry personally reviewed. Review of Systems Review of Systems: See HPI for pertinent positives. All others negative other than those noted in the HPI. CONSTITUTIONAL: No change in weight, No weakness, No fevers, No fatigue, No s weats or chills. HEENT: No visual changes, No epistaxis, No bleeding gums, No dysphagia, PULMONARY: No cough, sputum, or hemoptysis, No wheezing, No shortness of breath, and No recent change in breathing. CARDIOVASCULAR: +chest pain. No dyspnea on exertion, No edema, No palpitations, No syncope, No claudication, No calf pain. GASTROINTESTINAL: No change in appetite, No abdominal pain, No change in bowel habits, No significant heartburn, No nausea, No vomiting, No diarrhea, No constipation, No blood in stools or black tarry stools, No dysphagia. HEMATOLOGIC: No abnormal bleeding and No bruising. NEUROLOGICAL: No falls, No dizziness, No lightheadedness, Normal balance, No headaches, and No weakness. PSYCH: No sleep disturbances, No mood changes. Physical Exam Physical Exam: Vital signs within normal limits as above. General: Well developed and nourished. No acute distress. A+Ox3. HEENT: Normocephalic. Atraumatic. EOMI. Conjunctiva and sclera clear. NECK: Trachea midline. No thyromegaly. No carotid bruits. No JVD. Carotid upstrokes are brisk. Heart: RRR. S1 and S2 noted. No murmur. No rubs or gallops. PMI non displaced. Lungs: Diminished breath sound throughout posterior lobes with expiratory wheezes. No rhonchi. No rales. Abdomen: Normal bowel sounds. Soft. Nontender. No abdominal bruits. Extremities: Normal capillary refill. No edema. No clubbing or cyanosis. Skin: Warm and dry. NEURO: No focal deficits. PSYCH: Appropriate affect and insight. Results & Data Vital Signs (Past 12 Hours) Vital Signs Temp Pulse Pulse Resp BP Pulse Ox O2 Del Method 08/14/25 07:26 36.6 C 64 20 152/89 H 93 Room Air 08/14/25 07:00 Room Air 08/14/25 03:38 36.4 C L 62 16 123/84 95 Room Air 08/13/25 23:37 60 08/13/25 23:17 36.5 C 68 16 151/90 H 94 Room Air Laboratory Results Cardiac Enzymes 08/13/25 Range/Units 10:12 B-Natriuretic Peptide 31 (0-100) pg/ml Coagulation 08/13/25 Range/Units 10:12 B-Natriuretic Peptide 31 (0-100) pg/ml Intake and Output 08/13/25 08/14/25 08/14/25 22:59 06:59 14:59 Intake Total 820 / 1609 250 / 1609 Output Total Balance 820 / 1609 250 / 1609 - / -1 Intake: Oral 820 / 1070 250 / 1070 Output: # Bowel Movements Other: # Unmeasured Voids 1 Weight 104.2 kg Weight Measurement Method Built in [facility] Diagnostic Findings Sinus rhythm with heart rates 60-70s and no significant arrhythmias upon 24-hr telemetry review. Chest CTA 08/13/25 12:47 Clinical history: Rule out pulmonary embolism Technique: Axial computed tomography images were obtained of the chest after the administration of intravenous contrast according to the CT angiogram protocol Comparison is made to the prior CT dated 07/29/2024 Findings: There is no definite sign of pulmonary embolism. There is a centrally calcified nodule in the right upper lobe just above the right minor fissure, consistent with a benign granuloma. There is an unchanged 4-5 mm nodule along the right major fissure. There is bilateral lower lobe atelectasis. There is no pleural effusion or pneumothorax. There is no sign of pulmonary fibrosis or other diffuse interstitial process. No endobronchial lesion is seen There is no mediastinal, hilar, or axillary adenopathy. The thoracic aorta appears unremarkable with no sign of aneurysm or dissection. There is no pericardial effusion The visualized upper abdomen appears unremarkable. No fracture is seen. No focal osseous lesion is evident Impression: 1. No definite sign of pulmonary embolism 2. Unchanged small right lung nodule, likely benign. A follow-up chest CT could be obtained in 6 months to ensure continued stability Electronically signed by Wayne Milian 08-13-2025 2:44 PM PG Care Time/CCT Total # of Minutes Spent Total Time Spent with Patient: Total time spent is greater than 50% in coordination of care (as documented) at patient's floor/unit and/or counseling patient: [place] [address] SUB INP/OBS CARE 3/50MIN Patient Type Established Medical Decision Making High Complexity Diagnoses Chest pain R07.9 Acute bronchitis due to parainfluenza virus J20.4 HLD (hyperlipidemia) E78.5 Tobacco abuse Z72.0 Time Spent (min) 30
--- NOTE | 2025-08-14 10:05 | Hospitalist Progress Note ---
Date of Service August 14, 2025 Assessment & Plan (1) Chest pain: Plan 65M with PMH COPD, lifelong smoking, lung nodules who presents with chest pain #Chest pain -Substernal chest pain with radiation to neck and down left arm -It is reproducible to palpation. Also worse with inspiration -HS trops normal -EKG without ST segment changes -No history of NE or VTE -Unclear etiology at this point. -Suspect MSK component due to recent URI with coughing however this would not ex plain the radiating symptoms -BNP normal. TTE reviwed, normal EF -CTA images reviewed, no PNA or PE Plan -For Stress test tomorrow, cardio to determine modality -NPO after MN -Anticipate DC home tomorrow after stress test -Appreciate cardio input -Cardiac monitoring -Continue ASA and statin therapy for now #Lung nodules -Lung nodules and granuloma seen on CT -Known history of lung nodules -Instructed to f/u with his PCP as OP #Tobacco abuse -Quit smoking a few weeks ago -Counselled on risks of smoking I spent a total of 45 minutes coordinating, documenting, and providing care for this patient excluding time spent in the performance of separately billed services. This included personally reviewing all current laboratories and imaging studies, medical reconciliation, outpatient chart review and discussion with specialists Admission and Anticipated Discharge Date Admission Date: August 12, 2025 Subjective Feeling well this AM. chest pain diminishing but sitll with TTP over L sternum and axillary wall Physical Exam Physical Exam: Vitals and labs reviewed General: Well appearing, NAD HEENT: EOMI, PERRLA Neck: Supple Cardiac: RRR no rubs gallops or murmurs. TTP over sternum, L anterior intercostals Lungs: CTA no rhonchi wheezing or rales Abd: S NT ND BS positive : Deffered MSK: Full ROM. No obvious deformities Ext: trace b/l LE pitting Edema NO cyanosis Skin: Warm, Dry Neuro: AOx3 No focal deficits. Psych: Normal Mood Results & Data Results & Data Vital Signs (Past 12 Hours) Vital Signs Temp Pulse Pulse Resp BP Pulse Ox O2 Del Method 08/14/25 07:26 36.6 C 64 20 152/89 H 93 Room Air 08/14/25 07:00 Room Air 08/14/25 03:38 36.4 C L 62 16 123/84 95 Room Air 08/13/25 23:37 60 11/29/25 23:17 36.5 C 68 16 151/90 H 94 Room Air
[2025-08-14] MEDS ORDERED: ALBUTEROL HFA 8 GM INHALER INH PRN (13:13)
[2025-08-15 08:12] VITALS: TEMP 97.3
--- NOTE | 2025-08-15 11:14 | Cardiology Progress Note ---
Date of Service August 15, 2025 Assessment & Plan (1) Chest pain: (2) HTN (hypertension): (3) Acute bronchitis due to parainfluenza virus: (4) Acute exacerbation of chronic obstructive pulmonary disease (COPD): (5) Tobacco abuse: Plan: Nuclear tracer unavailable at this time, Lexiscan nuclear stress test canceled. Dobutamine stress echocardiogram ordered for further risk stratification. Continue current medications including low-dose aspirin, atorvastatin, and amlodipine. Further recommendations pending results of dobutamine stress echo. Ronnell Alva DO, [facility] Admission and Anticipated Discharge Date Admission Date: August 15, 2025 Subjective 65-year-old male seen and examined at bedside. Telemetry Viel sinus rhythm in the 70s. No recurrent chest discomfort over the past 24 hours. He was initially scheduled for nuclear stress testing this a.m., however, there is no nuclear traceable available for imaging today. Notes persistent cough with minimal sputum production. Expiratory wheeze unchanged. Denies orthopnea, PND, or lower extremity edema. Reports concern regarding possibility of underlying coronary disease due to family history as well as personal history of tobacco use. Review of Systems Review of Systems: All systems reviewed & are unremarkable except as noted in Subjective Physical Exam Constitutional: well nourished; no acute distress Respiratory: + cough; no respiratory distress and no labored breathing Auscultation: + wheezes Cardiovascular: Rate/Rhythm: regular rate and regular rhythm Heart Sounds: normal S1 and normal S2; no murmur Vessels: no JVD Extremities: no edema Gastrointestinal (Abdomen): Inspection/Auscultation: abdomen normal to inspection and normal bowel sounds; abdomen not distended Neurologic: CN's II-XI intact bilaterally and moves all extremities; no focal motor deficits Results & Data Vital Signs (Past 12 Hours) Vital Signs Temp Pulse Pulse Resp BP Pulse Ox O2 Del Method 08/15/25 08:10 36.3 C L 71 23 151/89 H 92 Room Air 08/15/25 03:21 36.5 C 69 19 131/88 92 Room Air 08/14/25 23:55 86 08/14/25 23:28 36.5 C 66 17 130/77 94 Room Air Laboratory Results Intake and Output 08/14/25 08/15/25 08/15/25 22:59 06:59 14:59 Intake Total 450 / 650 Balance 450 / 649 Intake: Oral 450 / 650 Other: Other Intake Source NPO # Unmeasured Voids 1 2 Weight 104.6 kg Weight Measurement Method Built in [facility] Care Time/CCT Total # of Minutes Spent Total Time Spent with Patient: Total time spent is greater than 50% in coordination of care (as documented) at patient's floor/unit and/or counseling patient: Coding Level of Care Code 14288 SUB INP/OBS CARE 2/35MIN Diagnoses Other chest pain R07.89 Chest pain type: other chest pain Primary hypertension I10 Hypertension type: primary hypertension Acute bronchitis due to parainfluenza virus J20.4 Acute exacerbation of chronic obstructive pulmonary disease (COPD) J44.1 Tobacco abuse Z72.0 (1) Chest pain Chest pain type: other chest pain Qualified Code(s): R07.89 - Other chest pain (2) HTN (hypertension) Hypertension type: primary hypertension Qualified Code(s): I10 - Essential (primary) hypertension
[2025-08-15] MEDS: DOBUTamine HCL 12.5 MG/ML 20 ML VIAL IV ONE (11:49)
[2025-08-15] MEDS: METOPROLOL TARTRATE 1 MG/ML VIAL IV ONE (11:50)
[2025-08-15] MEDS: ATROPINE SULFATE 0.1 MG/ML 10ML SYR IV ONE (11:52)
[2025-08-15] MEDS: ESMOLOL HCL INJ 10 MG/ML 10ML VIAL IV ONE (11:52)
--- NOTE | 2025-08-15 11:59 | XCELERA ---
[id number]
[2025-08-15 12:06] VITALS: BP 135/84; PULSE 72; RESP 21; O2SAT 94
--- NOTE | 2025-08-15 12:20 | Discharge Summary ---
Discharge Summary Date of Service August 15, 2025 Principal Dx & Hospital Course #1 = Principal Diagnosis (1) Chest pain: Plan 65M with PMH COPD, lifelong smoking, lung nodules who presents with chest pain. Pain was Substernal chest pain with radiation to neck and down left arm. It was reproducible to palpation. Also worse with inspiration. serial trops were normal. EKG without ischemic changes. CTA neg for PE, PNA. Stress test low risk. He feels well currently and wishes to go home. Vitals stable for discharge. etiology of his chest pain likely MSK. He was also found to have pulmonary nodules on CT. Patient is aware of these chronic findings and states he already has a follow up test scheduled at the [place]. #Chest pain -HS trops normal -EKG without ST segment changes -No history of DE or VTE -Unclear etiology at this point. -Suspect MSK component due to recent URI with coughing however this would not explain the radiating symptoms -BNP normal. TTE reviwed, normal EF -CTA images reviewed, no PNA or PE Plan -For Stress test tomorrow, cardio to determine modality -NPO after MN -Anticipate DC home tomorrow after stress test -Appreciate cardio input -Cardiac monitoring -Continue ASA and statin therapy for now #Lung nodules -Lung nodules and granuloma seen on CT -Known history of lung nodules -Instructed to f/u with his PCP as OP #Tobacco abuse -Quit smoking a few weeks ago -Counselled on risks of smoking I spent a total of 39 minutes coordinating, documenting, and providing care for this patient excluding time spent in the performance of separately billed services. This included personally reviewing all current laboratories and imaging studies, medical reconciliation, outpatient chart review and discussion with specialists Notes For Next Care Provider Medication Changes From Visit none Admission HPI Per Admitting Provider History obtained from patient, family, and records. Medical history significant for COPD, pulmonary nodules, hyperlipidemia, urolithiasis, BPH, ongoing tobacco abuse. Last confinement November 2024 for urolithiasis. Four [facility] ER visits this month for respiratory illness. Recent ER visit last week for flulike symptoms/bronchitis attributed to prior influenza illness. Patient had achy substernal pain today going to the neck and left arm associated with some tingling. No unusual cough or SOB symptoms. Denies unusual exertion. Discomfort improved after nitroglycerin administration at the ER. Patient later noted lower abdominal pain at the ER without dysuria or hematuria symptoms. 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 No obvious deformities Ext: No Edema cyanosis Skin: Warm, Dry Neuro: AOx3 No focal deficits. Psych: Normal Mood Updated Medication List Medication Instructions Recorded Confirmed Type albuterol sulfate 2.5 mg/3 mL 2.5 mg (3 mL) inhalation Q8H PRN 07/30/24 08/12/25 Rx (0.083 %) solution for nebulization bronchospasm #75 mL epinephrine 0.3 mg/0.3 mL 0.3 mg IM Q15M PRN Allergy Symptoms 11/30/24 08/12/25 History injection, auto-injector (EpiPen) atorvastatin 10 mg tablet (Lipitor) 5 mg PO QAM 12/06/24 08/12/25 History albuterol sulfate 90 mcg/actuation 2 puff inhalation TID PRN SOB 07/26/25 08/12/25 History aerosol inhaler diclofenac sodium 1 % topical gel 2 g topical QID PRN joint pain 07/26/25 History fluticasone 250 mcg-salmeterol 50 1 inh inhalation BID 07/26/25 08/12/25 History mcg/dose blistr powdr for inhalation Hospital Stay Data Consultations 08/12/25 23:13 ED Decision to Admit Stat 08/13/25 00:26 Consult Cardiology Routine Diagnostic Imagining Performed 08/13/25 00:29 CT Abd and Pelvis [CT abd pelvis IV con only] Stat 08/13/25 12:47 CT angio chest PE protocol Stat Pending Results Patient Have Any Pending Studies at Discharge: No Discharge Instructions Given to Patient (Per Discharging Provider) Your stress test was normal. You are good for discharge home. please follow up with your PCP in 1-2 weeks. Please continue to refrain from smoking. please follow up with your PCP regarding the pulmonary nodules Total Time Total Time Spent Total Time Spent (In Minutes): 38
== END 2025-08-15 13:52 | disposition home or self-care (01) | DRG 313 ==
LOC: ED 19:33 → 4W 19:33